=== PATIENT | female | born 1940 | race Caucasian/White ===

== ENCOUNTER → 2016-11-05 | Outpatient (CLI) | payer BC ==
--- NOTE | 2016-11-06 08:43 | MM ---
Reason for exam: screening (asymptomatic). Last mammogram was performed 6 months ago. History: Patient is postmenopausal. Took estrogen beginning at age 47. Physical Findings: A clinical breast exam by your physician is recommended on an annual basis and results should be correlated with mammographic findings. MG 3D Screening Mammo W/Cad Bilateral CC and MLO view(s) were taken. Prior study comparison: October 31, 2015, bilateral MG 3d screening mammo w/cad. October 18, 2014, bilateral MG screening mammo w CAD. October 15, 2013, bilateral MG screening mammo w CAD. There are scattered fibroglandular densities. No significant changes when compared with prior studies. ASSESSMENT: Negative, BI-RAD 1 RECOMMENDATION: Routine screening mammogram of both breasts in 1 year.
== END | disposition home or self-care (01) ==
LOC: RADMAMWWP 10:43
PROVIDERS: ATTEND Family Medicine
DX: Z12.31 Encounter for screening mammogram for malignant neoplasm of breast (principal)
CPT/HCPCS: 77063; G0202

== ENCOUNTER → 2016-12-26 | Outpatient (CLI) | payer BC ==
--- NOTE | 2016-12-26 16:19 | MR ---
EXAMINATION TYPE: MR shoulder RT wo con DATE OF EXAM: 12/26/2016 COMPARISON: Outside radiographs 12/13/2016 HISTORY: 76 year-old female right shoulder pain TECHNIQUE: Multiplanar, multisequence imaging of the right shoulder is performed without contrast. FINDINGS: The long head biceps tendon is seen on the coronal series but shows intermediate signal on the sagitt al series suggesting tendinosis. There is signal of the subscapularis tendon with shallow articular sided tearing. The majority of the subscapularis tendon remains intact. There is mild degenerative joint space narrowing at the acromioclavicular joint with marginal spurrin g. Inferior spurring from the distal clavicle minimally impresses on to the myotendinous junction of the supraspinatal tendon. The supraspinatus and infraspinatus tendons show diffusely heterogeneous signal. There is a bursal si ded tear of the anterior supraspinatus tendon measuring 8 mm long and 9 mm AP dimension. The tear karen ws intrasubstance extension posteriorly into the infraspinatus tendon with fluid delaminating mediall y towards the infraspinatus myotendinous junction. Overall length of the intrasubstance tear is appro ximately 2.5 cm AP. No full-thickness tear is identified. Bony irregularity of both the lesser and greater tuberosities. Trace fluid within the subacromial/subdeltoid bursa. No atrophy of the rotator cuff musculature. Evaluation of the glenohumeral joint shows minimal anterior spurring and some mild thinning of articu lar cartilage. There is degenerative blunting of the superior labrum. No paralabral cyst. Degenerativ e signal within the posterior labrum as well. No significant joint effusion. No Hill-Sachs deformity or os acromiale. Patchy red marrow signal is present. IMPRESSION: 1. Diffuse rotator cuff tendinosis. There is a small bursal sided tear (8 x 9 mm) of the anterior sup raspinatus tendon that involves approximately 50% of the tendon thickness. 2. Intrasubstance extension of this tear posteriorly into the infraspinatus tendon where fluid delami nates medially to the infraspinatus myotendinous junction. No full-thickness tear. 3. Minimal articular sided tearing of the subscapularis tendon. The majority of the subscapularis ten don remains intact. 4. Mild AC joint OA but with inferior spurring mildly impinging onto the underlying cuff. 5. Intracapsular long head biceps tendinosis. 6. Degenerative glenoid labrum and mild glenohumeral joint OA.
== END | disposition home or self-care (01) ==
LOC: RADMRIMAIN 12:01
PROVIDERS: ATTEND Orthopaedic Surgery
DX: S46.811A Strain of other muscles, fascia and tendons at shoulder and upper arm level, right arm, initial encounter (principal); M75.81 Other shoulder lesions, right shoulder; M19.011 Primary osteoarthritis, right shoulder; M67.88 Other specified disorders of synovium and tendon, other site

== ENCOUNTER 2017-02-14 05:58 | Day surgery (SDC) | payer BC ==
[2017-02-11 15:06] VITALS: BMI 41.6
--- NOTE | 2017-02-13 15:37 | HP ---
HISTORY AND PHYSICAL DATE OF SERVICE: 02/14/2017 Mar Grigsby is a 76-year-old patient seen with progressive right shoulder pain. After treatment options were discussed. She elected to proceed with arthroscopy. Consent was obtained. Medical clearance by Dr. Holley. PAST MEDICAL HISTORY: Hypertension, hyperlipidemia, osteoarthritis. PAST SURGICAL HISTORY: Right total knee arthroplasty, left total shoulder arthroplasty. . DAILY MEDICATIONS: Losartan, vitamins. ALLERGIES: SULFA. SOCIAL HISTORY: Patient denies any tobacco use. PHYSICAL EVALUATION OF THE RIGHT SHOULDER: Flexion 160 degrees, abduction is 150 degrees, external rotation is 50 degrees with significant weakness. There is tenderness on the anterolateral acromion and rotator cuff insertion site. Impingement is positive at 90 degrees. Drop-arm sign is positive. Distal neurovascular exam is intact. RADIOGRAPHS OF THE RIGHT SHOULDER: Revealed a type 2 anterior acromion and cystic changes of the greater tuberosity. MRI of right shoulder revealed rotator cuff tear as well as biceps tendinosis. IMPRESSION: Right shoulder impingement with rotator cuff tear. PLAN: Right shoulder arthroscopy with subacromial decompression, probable arthroscopic rotator cuff repair. Possible biceps tenotomy and debridement. MMODL / IJN: [id number] /
[~2017-02-14 05:58] MED LIST: DEXAMETHASONE SOD PHOSPHATE 10 MG/ML 1 ML VIAL IV ONE; LACTATED RINGERS 1,000 ML IV SCH; MIDAZOLAM 2 MG/2 ML VIAL IV PRN; ONDANSETRON 4 MG/2 ML VIAL IVP ONE; SCOPOLAMINE 1.5MG/72HR PATCH TRANSDERM ONE; ceFAZolin 2 GM in SODIUM CHLORIDE 0.9% 100 ML IVPB ONE; fentaNYL (PF) 50 MCG/ML 2 ML AMP IV PRN
[2017-02-14 06:43] VITALS: RESP 16
[2017-02-14] MEDS ORDERED: LIDOCAINE 1% 20 ML VIAL (10MG/ML) FOR IV START INTRADERMA ONE (06:44)
[2017-02-14] MEDS ORDERED: PROPOFOL 10 MG/ML 20 ML VIAL IV ONE (07:26)
[2017-02-14] MEDS ORDERED: GLYCOPYRROLATE 0.2 MG/ML 2 ML VIAL ONE (07:26)
[2017-02-14] MEDS ORDERED: ROCURONIUM BROMIDE 10 MG/ML 10 ML VIAL IV ONE (07:26)
[2017-02-14] MEDS ORDERED: LIDOCAINE 1% INJ 10MG/ML (20 ML MDV) ONE (07:26)
[2017-02-14] MEDS ORDERED: fentaNYL (PF) 50 MCG/ML 2 ML AMP ONE (07:26)
[2017-02-14] MEDS ORDERED: NEOSTIGMINE 1 MG/ML 10 ML VIAL ONE (07:26)
[2017-02-14] MEDS ORDERED: SUCCINYLCHOLINE CHLORIDE 100 MG/5 ML SYR IV ONE (07:26)
--- NOTE | 2017-02-14 09:03 | P.OP ---
Date of Procedure: 02/14/17 Preoperative Diagnosis: Right shoulder impingement Postoperative Diagnosis: 1. Right shoulder rotator cuff tear 2. Right shoulder impingement 3. Right shoulder acromioclavicular joint osteoarthritis 4. Right shoulder partial long head biceps tendon tear 5. Right shoulder anterior/superior labral tear 6. 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 Right shoulder arthroscopic rotator cuff repair 2. Right shoulder arthroscopic subacromial decompression 3. Right shoulder arthroscopic Sukhdev procedure 4. Right shoulder arthroscopic biceps tenotomy 5. Right shoulder arthroscopic debridement labral tear 6. Right shoulder arthroscopic chondroplasty glenoid Implants: 1-5.5 peek anchor Anesthesia: GETA, regional (Interscalene block) Surgeon: Luis Fink Machine Welder #1: Linus Enriquez Estimated Blood Loss (ml): 15 Pathology: none sent Condition: stable Disposition: PACU Indications for Procedure: 76-year-old patient seen with progressive right shoulder pain. After treatment options were discussed she elected to proceed with arthroscopy. Operative Findings: see description of procedure Description of Procedure: Patient underwent a shoulder block by department of anesthesia. The patient was then taken to the operative suite. The patient underwent a general anesthetic by the department of anesthesia. The patient was placed into a lateral position and secured. There was appropriate padding of the bony prominence. Right shoulder was then prepped and draped in normal sterile orthopedic fashion. We placed the extremity in 10 pounds of longitudinal traction. A posterior incision was now made for a posterior working portal site. The trocar and cannula were inserted into the glenohumeral joint. Arthroscopy was initiated. Spinal needle was now inserted anteriorly, to ascertain the anterior working portal site. An incision was now made in that area, a trocar was inserted followed by a probe. There was superficial tearing of the superior and anterior labrum. There were grade 2 chondromalacia changes of the glenoid more anteriorly with some small osteochondral tears present. There was partial tearing of the long head biceps tendon and hyperemia. There was evidence for an through and through rotator cuff tear which was visualized on the glenohumeral side. I debrided the labral tears down to stable tissue. I performed an arthroscopic biceps tenotomy. I performed a chondroplasty of the glenoid down to stable tissue. The residual labrum was found to be stable. Instruments were now removed from glenohumeral joint. Utilizing the posterior working portal site, the trocar and cannula were inserted into the subacromial space. Arthroscopy initiated. I made an incision 2 fingerbreadths lateral to the acromion. I introduced my trocar followed by my ArthroCare ablator. I now began ablating thick subacromial bursal tissue, which exposed the undersurface of the anterior acromion. This was diminished subacromial space. There was a very prominent anterior acromion. A motorized bur was introduced and a subacromial decompression was performed. I also excised some osteophytes off the inferior aspect of the distal clavicle. The AC joint was visualized and noted to be fairly arthritic. Our motorized bur was introduced in the anterior portal site and a Sukhdev procedure was performed without difficulty, decompressing the AC joint nicely. I turned my attention to the rotator cuff. There was a 1.5 cm tear along the anterior aspect of the distal supraspinatus. It was freely mobile over the footprint. I debrided the margins down to stable tissue. I inserted 2 mattress sutures with good bites of rotator cuff tendon. I repaired the tendon back to the footprint with one 5.5 peek anchor compressing the tendon very nicely. The residual suture limbs were clipped. The repair was probed and found to be stable. I injected 1 mL Allogen intra-articular. Instruments now removed from the portal sites. All portal sites were approximated with nylon suture. Sterile dressings were applied followed by a shoulder immobilizer. Juan R DUNN assisted with the procedure. The patient was awakened, transferred to a bed, and taken to recovery in stable condition.
[2017-02-14 09:06] VITALS: TEMP 96.8
[2017-02-14 12:03] VITALS: BP 144/86; PULSE 97
--- NOTE | 2017-02-14 14:32 | P.ONQ ---
Anesthesiology Proc Note - PNB - Peripheral Nerve Block Performed Right Interscalene Single Time Out Performed: Yes Procedure Start Time: 09:05 Procedure Stop Time: 09:14 Indication: Acute Post-Operative Pain, Requested by physician Sedation Type: Sedate with meaningful contact maintained Preparation: Sterile Prep Position: Supine Needle Size: 50mm (2") Needle Gauge: 21 Technique: Ultrasound Injectate: 2.0% Lidocaine (see comment for volume) (ropi .5% 20cc plus lido2% 15cc) Blood Aspirated: No Pain Paresthesia on Injection Noted: No Resistance on Injection: Normal Events: Uneventful and Well Tolerated
== END 2017-02-14 12:40 | disposition home or self-care (01) ==
LOC: OR 05:58
PROVIDERS: ATTEND Orthopaedic Surgery
DX: M75.101 Unspecified rotator cuff tear or rupture of right shoulder, not specified as traumatic (principal); M25.811 Other specified joint disorders, right shoulder; M25.711 Osteophyte, right shoulder; M19.011 Primary osteoarthritis, right shoulder; S46.111A Strain of muscle, fascia and tendon of long head of biceps, right arm, initial encounter; S43.401A Unspecified sprain of right shoulder joint, initial encounter; X58.XXXA Exposure to other specified factors, initial encounter; M94.211 Chondromalacia, right shoulder; I10 Essential (primary) hypertension; R78.5 Finding of other psychotropic drug in blood; Z79.82 Long term (current) use of aspirin; Z79.899 Other long term (current) drug therapy; Z88.2 Allergy status to sulfonamides; Z88.6 Allergy status to analgesic agent; Z88.5 Allergy status to narcotic agent
CPT/HCPCS: 29826; 29827; 29824; 64415; C1713; C1765; J2250; J1100; J2710; J0690; J2405; J2001; J3010; J0330; J2704

== ENCOUNTER → 2017-10-24 | Outpatient (CLI) | payer BC | END | disposition home or self-care (01) | LOC: LABPAT 17:17 | PROVIDERS: ATTEND Orthopaedic Surgery | DX: Z01.812 Encounter for preprocedural laboratory examination (principal) | CPT/HCPCS: 87070 ==

== ENCOUNTER → 2017-10-30 | Outpatient (CLI) | payer BC ==
[2017-10-30 16:15] LABS: Basophils % (A) 1 %; Eosinophils # (A) 0.2 k/uL (0-0.7); Eosinophils % (A) 3 %; HCT 46.1 % (34.0-46.0); HGB 15.2 gm/dL (11.4-16.0); Lymphocytes # (A) 1.8 k/uL (1.0-4.8); Lymphocytes % (A) 28 %; MCH 30.2 pg (25.0-35.0); MCV 91.3 fL (80.0-100.0); Monocytes # (A) 0.6 k/uL (0-1.0); Monocytes % (A) 10 %; Neutrophils # (A) 3.4 k/uL (1.3-7.7); Neutrophils % (A) 54 %; Platelet Count 255 k/uL (150-450); RBC 5.05 m/uL (3.80-5.40); RDW 13.3 % (11.5-15.5); WBC 6.3 k/uL (3.8-10.6)
[2017-10-30 16:26] LABS: Partial Thromboplastin Time 24.5 sec (22.0-30.0); Prothrombin Time 10.2 sec (9.0-12.0)
== END | disposition home or self-care (01) ==
LOC: LABPAT 14:24
PROVIDERS: ATTEND Orthopaedic Surgery
DX: Z01.812 Encounter for preprocedural laboratory examination (principal); M17.12 Unilateral primary osteoarthritis, left knee
CPT/HCPCS: 36415; 85025; 85610; 85730

== ENCOUNTER 2017-11-04 07:30 | Inpatient (IN) | payer BC ==
[2017-10-28 13:47] VITALS: BMI 41.5
--- NOTE | 2017-11-03 12:04 | HP ---
HISTORY AND PHYSICAL REASON FOR ADMISSION: Surgery scheduled for 11/04/2017 HISTORY OF PRESENT ILLNESS: Mar Grigsby is a 77-year-old patient seen with symptomatic left knee osteoarthritis. We discussed treatment options. She elected to proceed with left total knee arthroplasty. Consent regarding the procedure was obtained. PAST MEDICAL HISTORY: Hypertension, hyperlipidemia. PAST SURGICAL HISTORY: Right total knee arthroplasty, left shoulder arthroplasty. MEDICATIONS: Losartan, multivitamin. ALLERGIES: SULFA. SOCIAL HISTORY: Patient denies current tobacco use. PHYSICAL EXAMINATION: Evaluation of the left knee: Range of motion is +2/3 to 120 degrees. Tenderness along the medial joint line. Crepitus along the medial patellofemoral compartments range of motion. Pain with patellofemoral compression. Ligaments stable. Hip rotation without pain. Distal neurovascular exam is intact. RADIOGRAPHS: Left knee radiographs revealed moderate to severe medial and moderate to severe patellofemoral compartment osteoarthritis. IMPRESSION: 1. Left knee osteoarthritis. 2. Hypertension. 3. Hyperlipidemia. PLAN: Left total knee arthroplasty. Surgery 11/04/17. MMODL / IJN: [id number] /
[~2017-11-04 07:30] MED LIST changes: -DEXAMETHASONE SOD PHOSPHATE 10 MG/ML 1 ML VIAL IV ONE; -LACTATED RINGERS 1,000 ML IV SCH; +LIDOCAINE 1% 20 ML VIAL (10MG/ML) FOR IV START INTRADERMA PRN; -MIDAZOLAM 2 MG/2 ML VIAL IV PRN; -ONDANSETRON 4 MG/2 ML VIAL IVP ONE; -SCOPOLAMINE 1.5MG/72HR PATCH TRANSDERM ONE; +TRANEXAMIC ACID 1,000 MG in SODIUM CHLORIDE 0.9% 50 ML IVPB ONE; -ceFAZolin 2 GM in SODIUM CHLORIDE 0.9% 100 ML IVPB ONE; +ceFAZolin IN SWFI 2 GM/20 ML SYRINGE IVP ONE
[2017-11-04] MEDS: LACTATED RINGERS 1,000 ML IV SCH ×3 (08:26→14:31)
[2017-11-04] MEDS ORDERED: LIDOCAINE 1% 20 ML VIAL (10MG/ML) FOR IV START INTRADERMA ONE (08:26)
[2017-11-04] MEDS ORDERED: MIDAZOLAM 2 MG/2 ML VIAL ONE ×2 (08:32→10:07)
[2017-11-04] MEDS: MELOXICAM 7.5 MG TAB PO ONE ×2 (08:33→13:57)
[2017-11-04] MEDS: ONDANSETRON 4 MG/2 ML VIAL IVP ONE ×2 (08:33→13:57)
[2017-11-04] MEDS: ACETAMINOPHEN TAB 500 MG TAB PO ONE ×2 (08:33→13:56)
[2017-11-04] MEDS ORDERED: ROPIVACAINE 1,100 MG, SODIUM CHLORIDE 0.9% 330 ML MISCELLANE PRN ×2 (09:31)
[2017-11-04] MEDS ORDERED: TRANEXAMIC ACID 1,000 MG/10 ML VIAL ONE (10:07)
[2017-11-04] MEDS ORDERED: SODIUM CHLORIDE 0.9% 100 ML BAG ONE (10:07)
[2017-11-04] MEDS ORDERED: fentaNYL (PF) 50 MCG/ML 2 ML AMP ONE (10:07)
[2017-11-04] MEDS ORDERED: DEXAMETHASONE SOD PHOS (MDV) 100 MG/10 ML VIAL ONE (10:07)
[2017-11-04] MEDS ORDERED: diphenhydrAMINE 50 MG/ML 1 ML VIAL ONE (10:07)
[2017-11-04] MEDS: ROPIVACAINE 246.25 MG, EPINEPHrine 0.5 MG, KETOROLAC 30 MG, cloNIDine HCL/PF 80 MCG, WA... MISCELLANE ONE ×10 (10:44→11:49)
[2017-11-04] MEDS ORDERED: ceFAZolin 3,000 MG in SODIUM CHLORIDE 0.9% IRRIGATIO 3,000 ML IRRIGATION ONE (10:45)
[2017-11-04] MEDS ORDERED: LACTATED RINGERS 1,000 ML IV ONE (12:05)
[2017-11-04] MEDS ORDERED: ONDANSETRON 4 MG/2 ML VIAL IVP PRN (12:10)
[2017-11-04] MEDS ORDERED: HYDROmorphone 0.5 MG/0.5 ML SYRINGE IVP PRN ×3 (12:10)
[2017-11-04] MEDS ORDERED: NALOXONE 0.4 MG/ML 1 ML VIAL IV PRN (12:10)
[2017-11-04] MEDS ORDERED: HYDROcodone/APAP 7.5-325MG 1 EACH TAB PO PRN ×2 (12:10)
--- NOTE | 2017-11-04 12:10 | P.OP ---
Date of Procedure: 11/04/17 Preoperative Diagnosis: Left knee osteoarthritis Postoperative Diagnosis: Left knee osteoarthritis Procedure(s) Performed: Left total knee arthroplasty Implants: 1. Microport Evolution MP size 4 left primary cemented femur 2. Microport Evolution MP size 4 left primary cemented keel tibial base 3. Microport Evolution size 4 left 10 mm CS polyethylene tibial insert 4. Microport Advance 35 mm all polyethylene cemented patella Anesthesia: local, spinal Surgeon: Luis Fink Programming Development Project Manager #1: Linus Enriquez Estimated Blood Loss (ml): 50 Pathology: other (Bone) Condition: stable Disposition: PACU Indications for Procedure: 77-year-old patient seen with symptomatic left knee osteoarthritis. After treatment options were discussed, she elected to proceed with total knee arthroplasty. Operative Findings: See description of procedure Description of Procedure: Patient was taken to the operative suite after having an abductor canal catheter placed by the department of anesthesia. Patient underwent a spinal anesthetic by the department of anesthesia. Patient was given preoperative IV intake antibiotics and TXA. A well-padded tourniquet was placed about the left lower extremity. The lower extremity was then prepped and draped in the normal sterile orthopedic fashion. The extremity was elevated, a tourniquet was insufflated to 300. A standard anterior incision was made sharply through skin. Dissection was taken down through the subcutaneous soft tissues down to the extensor mechanism. A medial arthrotomy was performed, patella was everted and knee was flexed. There was advanced osteoarthritis noted. A proximal tibial cutting guide was positioned. Proximal tibial cut was made. A distal intramedullary femoral cutting guide was positioned, distal femoral cut made. We placed the appropriate sizing guide and selected the appropriate size. A distal 4-in-1 femoral cutting block was positioned, distal femoral cuts were made. We now placed a trial femoral component into position, along with an appropriate size tibial tray and insert. We now took the knee through range of motion and had full extension good flexion and good overall soft tissue balance noted. The patella was everted and a flush cut made with patellar quad tendon. We templated the patella, appropriate drill holes were made. An appropriate trial patella was positioned, knee was taken through full range of motion with the patella tracking very nicely. The trial patella was removed. Drill holes were made through the femoral component. All trial components were removed after marking off the appropriate rotation of the tibia. Retractors were now positioned along the proximal tibia. An appropriate keel punch was made with the appropriate size tibial guide. At this point appropriate size implants were chosen and opened. The joint was irrigated copiously with pulse lavage mechanical irrigation. The posterior capsule was infiltrated with local analgesic. We mixed antibiotic methylmethacrylate. Once the methyl methacrylate was ready, the tibial component was cemented into place removing any excess methylmethacrylate. The femoral component was cemented into place removing the removing any excess methylmethacrylate. We then inserted the appropriate size polyethylene tibial insert. We made sure that it was locked into position. We took the knee into full extension, and then back in a flexion making sure we had removed any excess methylmethacrylate. The patellar component was then cemented down and secured with clamp. Excess methylmethacrylate removed. We kept the knee in full extension, patellar clamp in position until methylmethacrylate had hardened. Once it had hardened the patellar clamp was removed. The knee was taken through full range of motion. The patella tracked nicely. There was good soft tissue balancing. The tourniquet was now released. Additional hemostasis was achieved via electrocautery. A second gram of TXA was given. The wound was irrigated with pulse lavage mechanical irrigation. The superficial soft tissues were infiltrated local analgesic. The extensor mechanism was repaired with Vicryl. We checked the repair with range of motion and it was stable. The subcutaneous soft tissues were repaired with Vicryl in layers. The skin was approximated with pernio/Dermabond. Sterile dressings were applied followed by loose web roll and Unruly bandage. The patient was transferred to a bed, and taken to recovery in stable and satisfactory condition. Juan R DUNN assisted with the procedure.
[2017-11-04 12:59] VITALS: RESP 16
--- NOTE | 2017-11-04 13:30 | XR ---
Limited left knee HISTORY: Status post left knee arthroplasty 2 views of the left knee No comparisons Patient is status post left knee arthroplasty. Surgical basia are present anteriorly. Lucency is re sonant the soft tissues. Anatomic alignment is noted. Calcification seen along the insertion of the r ectus femoris muscle. IMPRESSION: Orthopedic follow-up.
[2017-11-04] MEDS: traMADol 50 MG TAB PO SCH ×4 (14:14→22:19)
--- NOTE | 2017-11-04 14:28 | P.CONS ---
History of Present Illness - Reason for Consult Consult date: 11/04/17 Medical management Requesting physician: Luis Fink - Chief Complaint Status post left total knee arthroplasty - History of Present Illness This is a 77-year-old female with a known history of hypertension, osteoarthritis and overactive bladder. Patient presents to the hospital for left total knee arthroplasty. She's had a previous right total knee arthroplasty and bilateral shoulder surgeries. She tolerated surgery well estimated blood loss 50 ML. No complications. She denies any chest pain or shortness of breath. Denies any nausea or vomiting. Denies any bowel movement changes or urinary symptoms. We've been consulted for medical management. Review of Systems Please refer to HPI otherwise unremarkable Past Medical History Past Medical History: Hypertension, Osteoarthritis (OA) Additional Past Medical History / Comment(s): HX OF MIGRAINE HEADACHES History of Any Multi-Drug Resistant Organisms: None Reported Past Surgical History: Section, Joint Replacement, Orthopedic Surgery Additional Past Surgical History / Comment(s): PVO CLOSURE, LEFT SHOULDER REPLACEMENT, RIGHT KNEE REPLACEMENT, RT FOOT BUNION SX, LASIK EVELYN EYES Past Anesthesia/Blood Transfusion Reactions: Postoperative Nausea & Vomiting ( PONV) Additional Past Anesthesia/Blood Transfusion Reaction / Comm: son and daughter severe PONV Smoking Status: Former smoker - Past Family History Mother Family Medical History: Dementia, Diabetes Mellitus Father Family Medical History: Cancer Additional Family Medical History / Comment(s): NON-HODGKINS LYMPHOMA Medications and Allergies Home Medications Medication Instructions Recorded Confirmed Type Ascorbic Acid [Vitamin C] 1,000 mg PO DAILY 01/04/15 11/04/17 History Celecoxib [CeleBREX] 200 mg PO BID 01/04/15 11/04/17 History Multivitamins, Thera [Multivitamin] 1 tab PO DAILY 01/04/15 11/04/17 History Cholecalciferol [Vitamin D3] 5,000 unit PO DAILY 01/09/16 11/04/17 History Acetaminophen [Tylenol Extra 1,000 mg PO BID 02/11/17 11/04/17 History Strength] Aspirin [Adult Low Dose Aspirin EC] 81 mg PO DAILY 02/11/17 11/04/17 History Fexofenadine HCl [Sindy Allergy] 180 mg PO DAILY 02/11/17 11/04/17 History L.acidoph,Paracasei, B.lactis 1 cap PO DAILY 02/11/17 11/04/17 History [Probiotic] Losartan/Hydrochlorothiazide 1 tab PO QAM 02/11/17 11/04/17 History [Hyzaar 100-25 Tablet] Mirabegron [Myrbetriq] 50 mg PO DAILY 02/11/17 11/04/17 History Calcium Carbonate [Calcium] 600 mg PO DAILY 10/28/17 11/04/17 History Stool Softner 4 tab PO HS 10/28/17 11/04/17 History Apixaban [Eliquis] 2.5 mg PO BID #30 tab 11/04/17 Rx Allergies Allergy/AdvReac Type Severity Reaction Status Date / Time hydrocodone [From Vicodin] Allergy Nausea & Verified 11/04/17 12:41 Vomiting Sulfa (Sulfonamide AdvReac migraine Verified 11/04/17 12:41 Antibiotics) Physical Exam Vitals: Vital Signs Temp Pulse Pulse Resp BP BP Pulse Ox 11/04/17 13:15 83 16 111/56 97 11/04/17 13:00 84 16 104/51 96 11/04/17 12:45 85 16 106/52 95 11/04/17 12:30 88 18 99/54 97 11/04/17 12:15 99.0 F 91 18 156/72 96 11/04/17 08:54 84 18 128/64 96 11/04/17 08:21 98.4 F 96 16 128/67 95 Intake and Output 11/03/17 11/04/17 11/04/17 22:59 06:59 14:59 Intake Total 1201 Output Total 50 Balance 1151 Intake: IV 1201 Output: Estimated Blood Loss 50 Other: Weight 99.79 kg Head normocephalic Neck supple Lungs clear to auscultation bilaterally no wheezing or crackles Heart regular rate and rhythm S1-S2, no rub or gallop Abdomen is soft nontender nondistended positive bowel sounds no hepatosplenomegaly Extremities no edema Neuro alert and orientated to 3 Assessment and Plan Assessment: 1. Status post left total knee arthroplasty: Continue Lovenox for DVT prophylaxis and [place], Ultram and Dilaudid for pain control 2. Essential hypertension: Blood pressure is on the lower side. We'll hold Hyzaar for now. Last BP 111/56 3. Overactive bladder resume home medication GI prophylaxis Pepcid and DVT prophylaxis Lovenox Thank you For this consultation. We'll continue to follow along with you during patient's hospitalization. Time with Patient: Greater than 30 (Greater than 60% of the total time spent in counseling and coordination of care.I performed an examination of the patient and discussed their management with the physician Tester Operator. I have reviewed the Physician Tester Operator's notes and agree with the documented findings and plan of care)
[2017-11-04] MEDS: ceFAZolin IN SWFI 2 GM/20 ML SYRINGE IVP SCH (18:14)
--- NOTE | 2017-11-04 20:44 | P.ONQ ---
Anesthesiology Proc Note - PNB - Peripheral Nerve Block Performed Left Adductor Canal Infusion Time Out Performed: Yes Procedure Start Time: 08:38 Procedure Stop Time: 08:51 Indication: Acute Post-Operative Pain, Requested by physician Sedation Type: Sedate with meaningful contact maintained Preparation: Sterile Dressing Position: Supine Catheter: Indwelling Needle Types: On-Q Needle Size: 100mm (4") Needle Gauge: 21 Technique: Ultrasound Injectate: 0.5% Ropivacaine (see comment for volume) (ropi .5% 20cc) Blood Aspirated: No Pain Paresthesia on Injection Noted: No Resistance on Injection: Normal Events: Uneventful and Well Tolerated
[2017-11-04] MEDS ORDERED: SENNOSIDES-DOCUSATE SODIUM 1 EACH TAB PO SCH (21:00)
[2017-11-05] MEDS: ceFAZolin IN SWFI 2 GM/20 ML SYRINGE IVP SCH (01:05)
[2017-11-05 01:14] VITALS: PULSE 90
[2017-11-05] MEDS: LACTATED RINGERS 1,000 ML IV SCH ×2 (05:04→06:15)
[2017-11-05] MEDS ORDERED: ACETAMINOPHEN TAB 325 MG TAB PO PRN (06:03)
--- NOTE | 2017-11-05 07:11 | P.PN ---
Progress Note - Text 11/05 705am 77-year-old female status post left total knee replacement by Dr. Fink. Patient seen this morning for postop problems. She has an On-Q pump for postop pain control with the solution running at 8 mL an hour. She has a VAS of 0. Plan to continue On-Q pump infusion
[2017-11-05] MEDS: traMADol 50 MG TAB PO SCH ×2 (08:11→12:22)
[2017-11-05 08:26] LABS: ALT 18 U/L (9-52); AST 16 U/L (14-36); Albumin 3.2 g/dL (3.5-5.0); Alkaline Phosphatase 48 U/L (38-126); Anion Gap 8 mmol/L; Blood Urea Nitrogen 21 mg/dL (7-17); Calcium 8.7 mg/dL (8.4-10.2); Carbon Dioxide 29 mmol/L (22-30); Chloride 102 mmol/L (98-107); Glucose 96 mg/dL (74-99); Potassium 3.4 mmol/L (3.5-5.1); Sodium 139 mmol/L (137-145); Total Bilirubin 0.3 mg/dL (0.2-1.3); Total Protein 5.5 g/dL (6.3-8.2)
[2017-11-05 08:33] VITALS: BP 100/65; TEMP 97.8
[2017-11-05] MEDS ORDERED: FAMOTIDINE 20 MG TAB PO SCH (09:00)
[2017-11-05] MEDS ORDERED: ENOXAPARIN 30 MG/0.3 ML SYRINGE SQ SCH (09:00)
[2017-11-05] MEDS ORDERED: PATIENT'S OWN MED (Mirabegron [Myrbetriq] 50 MG) PO SCH (09:00)
[2017-11-05] MEDS ORDERED: MELOXICAM 7.5 MG TAB PO SCH (09:00)
[2017-11-05] MEDS ORDERED: LORATADINE 10 MG TAB PO SCH (09:00)
[2017-11-05 09:13] LABS: Basophils % (A) 0 %; Eosinophils % (A) 0 %; HCT 37.4 % (34.0-46.0); Lymphocytes # (A) 1.6 k/uL (1.0-4.8); Lymphocytes % (A) 18 %; MCH 30.8 pg (25.0-35.0); MCHC 32.5 g/dL (31.0-37.0); MCV 94.7 fL (80.0-100.0); Mean Platelet Volume 6.9; Monocytes # (A) 0.7 k/uL (0-1.0); Monocytes % (A) 8 %; Neutrophils # (A) 6.3 k/uL (1.3-7.7); Neutrophils % (A) 71 %; Platelet Count 193 k/uL (150-450); RBC 3.95 m/uL (3.80-5.40); RDW 13.7 % (11.5-15.5); WBC 8.8 k/uL (3.8-10.6)
[2017-11-05] MEDS ORDERED: POTASSIUM CHLORIDE ER 20 MEQ TAB.ER PO STA (09:19)
[2017-11-05 09:34] LABS: HGB 12.2 gm/dL (11.4-16.0)
--- NOTE | 2017-11-05 11:18 | P.PN ---
Subjective Progress Note Date: 11/05/17 Principal diagnosis: Status post left total knee arthroplasty Patient is in today resting in her hospital bed, she appears comfortable. She' s done very well with physical therapy. She denies any headaches, lightheadedness, chest pain or shortness of breath. Objective - Vital Signs Vital signs: Vital Signs Temp 97.8 F 11/05/17 07:30 Pulse 90 11/05/17 00:42 Resp 16 11/05/17 07:30 BP 100/65 11/05/17 07:30 Pulse Ox 94 L 11/05/17 07:30 Intake & Output 11/04/17 11/05/17 11/05/17 18:59 06:59 18:59 Intake Total 1201 735 Output Total 50 Balance 1151 735 Weight 99.79 kg Intake: IV 1201 Intake, IV Titration 735 Amount Lactated Ringers 1,000 ml 735 @ 70 mls/hr IV .[id number] ION Rx#:[id number] Output: Estimated Blood Loss 50 Other: Voiding Method Bedside Commode Bedside Commode # Voids 1 - Exam Left lower extremity: Incision is clean, dry, and intact. [place] are in good position. There is minimal soft tissue swelling and ecchymosis surrounding the medial and lateral aspects of the incision. Calf is soft, no tenderness with palpation. Plantar flexion, dorsiflexion, EHL, FHL are intact. Sensory exam to light touch throughout the extremity is intact, dorsal pedis pulses 2+. - Labs CBC & Chem 7: 11/05/17 07:15 11/05/17 07:15 Labs: Abnormal Lab Results - Last 24 Hours (Table) 11/05/17 Range/Units 07:15 Potassium 3.4 L (3.5-5.1) mmol/L BUN 21 H (7-17) mg/dL Total Protein 5.5 L (6.3-8.2) g/dL Albumin 3.2 L (3.5-5.0) g/dL Assessment and Plan Plan: Assessment: 1. Postop day #1 status post left total knee arthroplasty Plan: Pain control, we'll discharge home on oral medication GI and DVT prophylaxis, Eliquis 2.5mg bid for 14 days Medical recommendations Wound care management was discussed Home care and nursing after discharge Discharge planning: Patient will be discharged home today Time with Patient: Less than 30
--- NOTE | 2017-11-05 11:22 | P.DS ---
Providers Date of admission: 11/04/17 07:51 Expected date of discharge: 11/05/17 Attending physician: Luis Fink Primary care physician: Susannah Holley Hospital Course: Date of admission: 11/04/2017 Date of discharge: 11/05/2017 Admission diagnosis: Status post left total knee arthroplasty Discharge diagnosis: Same Attending physician: Dr. Fink Surgical procedures: Left total knee arthroplasty Brief history: Patient is a 77-year-old female with a history of progressive primary left knee osteoarthritis. At this point patient has failed conservative treatment measures and has opted to proceed with a elective left total knee arthroplasty. Hospital course: Details of patient's surgery can be found in operative report. Patient tolerated the procedure well and was subsequently transported to orthopedic floor. Patient's orthopeidc and medical care was provided daily. Patient had daily laboratory tests performed for evaluation of overall blood counts. Patient had daily physical therapy to include strengthening range of motion as well as education with walker ambulation. Patient had daily CPM usage as part of their physical therapy program. Patient was treated with Lovenox for their postoperative DVT prophylaxis during their inpatient stay. Patient was noted to have a relatively uneventful postoperative course. Patient reported satisfactory pain control with oral pain medications by postoperative day 0. Patient showed satisfactory progress with physical therapy. Patient moved steadily through the program and had no difficulty meeting the goals by postoperative day 1. Given patient's otherwise satisfactory course and having met physical therapy goals, plan is to discharge patient home on postoperative day 1. Discharge condition/disposition: Patient will be discharged home in stable condition. Discharge medications: Instructions are given on resumption of patient's normal daily medications per primary care recommendation, in addition patient will be prescribed Wray 7.5 mg/325 mg, tramadol 50 mg, Colace 100 mg, Eliquis 2.5mg. Discharge instructions: 1. Wound care and infection precautions, keep incision dry and covered while showering, no lotions, creams, moisturizers. No soaking, tubs, pools, hottubs. Do not scrub over the incision. 2. Weight-bear as tolerated with walker / cane until follow-up. 3. Ice and elevate when necessary. Do not exceed 20 minutes per hour with ice pack. 4. Utilize compression sleeve until seen at first follow up appointment. 5. Visiting nursing care. 6. Home physical therapy including home CPM. 7. Pain meds and anticoagulants per prescription. 8. Pain medication has potential to cause constipation. Increase oral fluid and fiber intake. Contact primary care provider if you have not had a bowel movement within 48 hours after discharge 9. No anti-inflammatory medication until discussed at first post operative visit, this including Motrin, Aleve, Mobic, Diclofenac. 10. Follow up in office at 2 weeks postop with Juan R Enriquez PA-C 11. Follow up with your primary care doctor 7-10 days after discharge. 12. Contact [facility] with any questions, . Procedures: Left total knee arthroplasty Patient Condition at Discharge: Good Plan - Discharge Summary Discharge Rx Participant: Yes New Discharge Prescriptions: New Apixaban [Eliquis] 2.5 mg PO BID #30 tab Docusate [Colace] 100 mg PO DAILY #30 capsule HYDROcodone/APAP 7.5-325MG [Wray 7.5] 1 each PO Q6HR PRN #28 tab PRN Reason: Pain traMADol HCl [Ultram] 50 mg PO Q6H PRN #28 tab PRN Reason: Pain No Action Multivitamins, Thera [Multivitamin] 1 tab PO DAILY Ascorbic Acid [Vitamin C] 1,000 mg PO DAILY Cholecalciferol [Vitamin D3] 5,000 unit PO DAILY Losartan/Hydrochlorothiazide [Hyzaar 100-25 Tablet] 1 tab PO QAM L.acidoph,Paracasei, B.lactis [Probiotic] 1 cap PO DAILY Fexofenadine HCl [Sindy Allergy] 180 mg PO DAILY Aspirin [Adult Low Dose Aspirin EC] 81 mg PO DAILY Mirabegron [Myrbetriq] 50 mg PO DAILY Acetaminophen [Tylenol Extra Strength] 1,000 mg PO BID Calcium Carbonate [Calcium] 600 mg PO DAILY Stool Softner 4 tab PO HS Discharge Medication List Ascorbic Acid [Vitamin C] 1,000 mg PO DAILY 01/04/15 [History] Multivitamins, Thera [Multivitamin] 1 tab PO DAILY 01/04/15 [History] Cholecalciferol [Vitamin D3] 5,000 unit PO DAILY 01/09/16 [History] Acetaminophen [Tylenol Extra Strength] 1,000 mg PO BID 02/11/17 [History] Aspirin [Adult Low Dose Aspirin EC] 81 mg PO DAILY 02/11/17 [History] Fexofenadine HCl [Sindy Allergy] 180 mg PO DAILY 02/11/17 [History] L.acidoph,Paracasei, B.lactis [Probiotic] 1 cap PO DAILY 02/11/17 [History] Losartan/Hydrochlorothiazide [Hyzaar 100-25 Tablet] 1 tab PO QAM 02/11/17 [ History] Mirabegron [Myrbetriq] 50 mg PO DAILY 02/11/17 [History] Calcium Carbonate [Calcium] 600 mg PO DAILY 10/28/17 [History] Stool Softner 4 tab PO HS 10/28/17 [History] Apixaban [Eliquis] 2.5 mg PO BID #30 tab 11/04/17 [Rx] Docusate [Colace] 100 mg PO DAILY #30 capsule 11/05/17 [Rx] HYDROcodone/APAP 7.5-325MG [Wray 7.5] 1 each PO Q6HR PRN #28 tab 11/05/17 [Rx] traMADol HCl [Ultram] 50 mg PO Q6H PRN #28 tab 11/05/17 [Rx] Follow up Appointment(s)/Referral(s): Susannah Holley MD [Primary Care Provider] - 11/12/17 9:30 am [facility], [NON-STAFF] - Linus Enriquez PAC [PHYSICIAN PARTITION ASSEMBLY MACHINE OPERATOR] - 11/20/17 1:50 pm Activity/Diet/Wound Care/Special Instructions: Orthopedic Discharge Instructions: 1. Wound care and infection precautions, keep incision dry and covered while showering, no lotions, creams, moisturizers. No soaking, pools, hot tubs. Do not scrub over incision. 2. Weight-bear as tolerated with walker / cane until follow-up. 3. Ice and elevate when necessary. Do not exceed 20 minutes per hour with ice pack. 4. Utilize compression sleeve until seen at first follow up appointment. 5. Visiting nursing care. 6. Home physical therapy. 7. Pain meds and anticoagulants per prescription. 8. Pain medication has potential to cause constipation. Increase oral fluid and fiber intake. Contact primary care provider if you have not had a bowel movement within 48 hours after discharge. 9. No anti-inflammatory medication until discussed at first post operative visit, this including Motrin, Aleve, Mobic, Diclofenac. 10. Follow up in office at 2 weeks postop with Juan R Enriquez PA-C 11. Follow up with your primary care doctor 7-10 days after discharge. 12. Contact [facility] with any questions, . Discharge Disposition: HOME WITH HOME HEALTH SERVICES
--- NOTE | 2017-11-05 11:31 | P.PN ---
Subjective Progress Note Date: 11/05/17 This is a 77-year-old female with a known history of hypertension, osteoarthritis and overactive bladder. Patient presents to the hospital for left total knee arthroplasty. She's had a previous right total knee arthroplasty and bilateral shoulder surgeries. She tolerated surgery well estimated blood loss 50 ML. No complications. She denies any chest pain or shortness of breath. Denies any nausea or vomiting. Denies any bowel movement changes or urinary symptoms. We've been consulted for medical management. 11/05/2017 patient denies any pain. Denies any nausea or vomiting. She has been up and ambulating. Denies any chest pain shortness breath. Denies any difficulty urinating. Passing gas no bowel movement yet. She is been cleared by orthopedics for discharge today. Objective - Vital Signs Vital signs: Vital Signs Temp 97.8 F 11/05/17 07:30 Pulse 90 11/05/17 00:42 Resp 16 11/05/17 07:30 BP 100/65 11/05/17 07:30 Pulse Ox 94 L 11/05/17 07:30 Intake & Output 11/04/17 11/05/17 11/05/17 18:59 06:59 18:59 Intake Total 1201 735 Output Total 50 Balance 1151 735 Weight 99.79 kg Intake: IV 1201 Intake, IV Titration 735 Amount Lactated Ringers 1,000 ml 735 @ 70 mls/hr IV .[id number] [facility] Rx#:[id number] Output: Estimated Blood Loss 50 Other: Voiding Method Bedside Commode Bedside Commode # Voids 1 - Exam Head normocephalic Neck supple Lungs clear to auscultation bilaterally no wheezing or crackles Heart regular rate and rhythm S1-S2, no rub or gallop Abdomen is soft nontender nondistended positive bowel sounds no hepatosplenomegaly Extremities no edema. Left knee incision and dressing clean dry and intact Neuro alert and orientated to 3 - Labs CBC & Chem 7: 11/05/17 07:15 11/05/17 07:15 Labs: Abnormal Lab Results - Last 24 Hours (Table) 11/05/17 Range/Units 07:15 Potassium 3.4 L (3.5-5.1) mmol/L BUN 21 H (7-17) mg/dL Total Protein 5.5 L (6.3-8.2) g/dL Albumin 3.2 L (3.5-5.0) g/dL Assessment and Plan Assessment: 1. Status post left total knee arthroplasty: Continue Eliquis at home for DVT prophylaxis 2. Essential hypertension: Blood pressures are still on the lower side blood pressure this morning was 100/65. Patient is able to check her blood pressures at home. Recommend that she holds her Hyzaar for systolic blood pressure less than 120. Also patient has been educated to check BP daily and record and follow-up with her PCP for further adjustment in medications 3. Overactive bladder resume home medication 4. Hypokalemia patient received potassium supplement. Potassium 3.4 at discharge Patient is medically stable for discharge. We'll have her follow-up with her PCP in 1 week. I performed an examination of the patient and discussed their management with the physician Charcoal Unloader. I have reviewed the Physician Charcoal Unloader's notes and agree with the documented findings and plan of care
[2017-11-05] MEDS ORDERED: CHOLECALCIFEROL 1,000 UNIT TAB PO SCH (12:00)
[2017-11-05] MEDS ORDERED: MULTIVITAMINS, THERA 1 EACH TAB PO SCH (12:00)
== END 2017-11-05 14:40 | disposition home health service (06) | DRG 470 ==
LOC: 2ORMAIN 07:51 → 3SUR 13:13
PROVIDERS: ADMIT Orthopaedic Surgery; ATTEND Orthopaedic Surgery
PROC: 0SRD0J9 Replacement of Left Knee Joint with Synthetic Substitute, Cemented, Open Approach (ICD-10-PCS; principal; 2017-11-04 09:45)
DX: M17.12 Unilateral primary osteoarthritis, left knee (principal); E78.5 Hyperlipidemia, unspecified; E87.6 Hypokalemia; I10 Essential (primary) hypertension; N32.81 Overactive bladder; G43.909 Migraine, unspecified, not intractable, without status migrainosus; R32 Unspecified urinary incontinence; M41.9 Scoliosis, unspecified; Z79.01 Long term (current) use of anticoagulants; Z79.82 Long term (current) use of aspirin; Z79.1 Long term (current) use of non-steroidal anti-inflammatories (NSAID); Z79.899 Other long term (current) drug therapy; Z88.5 Allergy status to narcotic agent; Z88.2 Allergy status to sulfonamides; Z87.891 Personal history of nicotine dependence; Z96.651 Presence of right artificial knee joint; Z96.612 Presence of left artificial shoulder joint; Z86.73 Personal history of transient ischemic attack (TIA), and cerebral infarction without residual deficits; Z87.74 Personal history of (corrected) congenital malformations of heart and circulatory system; Z90.710 Acquired absence of both cervix and uterus; Z90.79 Acquired absence of other genital organ(s); Z90.722 Acquired absence of ovaries, bilateral; Z90.49 Acquired absence of other specified parts of digestive tract; Z83.3 Family history of diabetes mellitus; Z80.7 Family history of other malignant neoplasms of lymphoid, hematopoietic and related tissues; Z82.0 Family history of epilepsy and other diseases of the nervous system
CPT/HCPCS: 80053; 85025; 88300

== ENCOUNTER 2017-11-09 11:31 | Emergency (ER) | payer MEDICARE, BC ==
[2017-11-09 11:37] VITALS: BP 134/85; PULSE 98; RESP 18; TEMP 98.6
--- NOTE | 2017-11-09 12:33 | CT ---
EXAMINATION TYPE: CT brain cspine wo con DATE OF EXAM: 11/09/2017 COMPARISON: CT brain and C-spine 12/31/2015 HISTORY: Fall today with possible injury CT DLP: 2183.1 mGycm Automated exposure control for dose reduction was used. TECHNIQUE: CT scan of the head and cervical spine are performed without contrast. FINDINGS: There is no acute intracranial hemorrhage, mass effect, or midline shift identified. The ventricles and sulci are within normal limits in size. The globes are intact and the visualized sin uses are clear. Cervical spine is visualized in its entirety from C1 through upper thoracic levels and demonstrates s atisfactory alignment without evidence of acute fracture or dislocation. Degenerative disc changes ar e again noted. Multilevel foraminal encroachment is present. Prevertebral soft tissue appears within normal limits. The C1-C2 articulation is unremarkable. 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 IMPRESSION: 1. There is no acute fracture or dislocation evident in the cervical spine. 2. No acute intracranial hemorrhage, mass effect, or midline shift is seen.
--- NOTE | 2017-11-09 12:35 | XR ---
Left knee HISTORY: Trauma and pain 3 views of the left knee correlated to prior exam 11/04/2017 There is displacement of the calcifications seen at the level of the superior patella on previous exa m which now are noted more proximally. No fracture or dislocation. IMPRESSION: Status post left knee arthroplasty in anatomic alignment. No fracture or dislocation. Cor relate to exclude quadriceps tendon rupture
--- NOTE | 2017-11-09 13:15 | ED ---
General Adult HPI - General Chief complaint: Fall Stated complaint: Post Surgical Stitches Opened Time Seen by Provider: 11/09/17 11:45 Source: family, RN notes reviewed, old records reviewed Mode of arrival: wheelchair Limitations: physical limitation - History of Present Illness Initial comments: This is a 77-year-old female to the ER for evaluation today. Patient presents for evaluation regarding fall, patient is currently on [place]. Patient had left total knee replacement on Saturday with good healing and good activity. She fell the bathroom earlier today she did hit her head with no loss of consciousness complaining some posterior head and neck pain. Patient also is complaining of severe pain to her left knee this is operative knee. With mild bleeding. Patient was unable to ambulate after the injury - Related Data Home Medications Medication Instructions Recorded Confirmed Ascorbic Acid [Vitamin C] 1,000 mg PO DAILY 01/04/15 11/09/17 Multivitamins, Thera [Multivitamin 1 tab PO DAILY 01/04/15 11/09/17 (formulary)] Cholecalciferol [Vitamin D3] 5,000 unit PO DAILY 01/09/16 11/09/17 Fexofenadine HCl [Sindy Allergy] 180 mg PO DAILY 02/11/17 11/09/17 L.acidoph,Paracasei, B.lactis 1 cap PO DAILY 02/11/17 11/09/17 [Probiotic] Mirabegron [Myrbetriq] 50 mg PO DAILY 02/11/17 11/09/17 Calcium Carbonate [Calcium] 600 mg PO DAILY 10/28/17 11/09/17 Stool Softner 4 tab PO HS 10/28/17 11/09/17 Previous Rx's Medication Instructions Recorded Apixaban [Eliquis] 2.5 mg PO BID #30 tab 11/04/17 Docusate [Colace] 100 mg PO DAILY #30 capsule 11/05/17 HYDROcodone/APAP 7.5-325MG [[place] 1 each PO Q6HR PRN #28 tab 11/05/17 7.5] Losartan/Hydrochlorothiazide 1 tab PO QAM #0 11/05/17 [Hyzaar 100-25 Tablet] traMADol HCl [Ultram] 50 mg PO Q6H PRN #28 tab 11/05/17 Allergies Allergy/AdvReac Type Severity Reaction Status Date / Time Sulfa (Sulfonamide AdvReac migraine Verified 11/09/17 11:37 Antibiotics) Review of Systems ROS Statement: Those systems with pertinent positive or pertinent negative responses have been documented in the HPI. ROS Other: All systems not noted in ROS Statement are negative. Past Medical History Past Medical History: Hypertension, Osteoarthritis (OA) Additional Past Medical History / Comment(s): HX OF MIGRAINE HEADACHES History of Any Multi-Drug Resistant Organisms: None Reported Past Surgical History: Section, Joint Replacement, Orthopedic Surgery Additional Past Surgical History / Comment(s): PVO CLOSURE, LEFT SHOULDER REPLACEMENT, RIGHT KNEE REPLACEMENT, RT FOOT BUNION SX, LASIK EVELYN EYES, left knee replacement Past Anesthesia/Blood Transfusion Reactions: Postoperative Nausea & Vomiting ( PONV) Additional Past Anesthesia/Blood Transfusion Reaction / Comment(s): son and daughter severe PONV Past Psychological History: No Psychological Hx Reported Smoking Status: Former smoker Past Alcohol Use History: Rare Past Drug Use History: None Reported - Past Family History Mother Family Medical History: Dementia, Diabetes Mellitus Father Family Medical History: Cancer Additional Family Medical History / Comment(s): NON-HODGKINS LYMPHOMA General Exam - General Exam Comments Initial Comments: Left knee basia in place, mild bleeding decreased range of motion, severe pain and swelling, patient is no ability to extend Limitations: physical limitation General appearance: alert, in no apparent distress Head exam: Present: atraumatic, normocephalic, normal inspection Eye exam: Present: normal appearance, PERRL, EOMI. Absent: scleral icterus, conjunctival injection, periorbital swelling ENT exam: Present: normal exam, mucous membranes moist Neck exam: Present: normal inspection. Absent: tenderness, meningismus, lymphadenopathy Respiratory exam: Present: normal lung sounds bilaterally. Absent: respiratory distress, wheezes, rales, rhonchi, stridor Cardiovascular Exam: Present: regular rate, normal rhythm, normal heart sounds. Absent: systolic murmur, diastolic murmur, rubs, gallop, clicks GI/Abdominal exam: Present: soft, normal bowel sounds. Absent: distended, tenderness, guarding, rebound, rigid Extremities exam: Present: normal inspection, full ROM, normal capillary refill. Absent: tenderness, pedal edema, joint swelling, calf tenderness Back exam: Present: normal inspection Neurological exam: Present: alert, oriented X3, CN II-XII intact Psychiatric exam: Present: normal affect, normal mood Skin exam: Present: warm, dry, intact, normal color. Absent: rash Course Vital Signs 11/09/17 11:34 Temperature 98.6 F Pulse Rate 98 Respiratory 18 Rate Blood Pressure 134/85 O2 Sat by Pulse 93 L Oximetry - Reevaluation(s) Reevaluation #1: 11/09/17 14:[address] Munoz for Dr. Puga, will mobilize left knee and patient can follow-up with orthopedics Medical Decision Making - Radiology Data Radiology results: report reviewed (CT brain C-spine negative x-ray left knee does show possible quadriceps tendon rupture), image reviewed Disposition Clinical Impression: Fall, Left knee pain, Quadriceps tendon rupture, Postoperative pain of left knee Disposition: HOME SELF-CARE Condition: Fair Instructions: Knee Immobilizer (ED), Tendon Rupture (ED) Is patient prescribed a controlled substance at d/c from ED?: No Referrals: Susannah Holley MD [Primary Care Provider] - 1-2 days
[2017-11-09] MEDS ORDERED: CEPHALEXIN 500 MG CAP PO STA (14:16)
[2017-11-09] MEDS ORDERED: HYDROcodone/APAP 5-325MG 1 EACH TAB PO STA (14:16)
== END 2017-11-09 15:01 | disposition home or self-care (01) ==
LOC: EC 11:31
DX: S76.112A Strain of left quadriceps muscle, fascia and tendon, initial encounter (principal); G89.18 Other acute postprocedural pain; M25.562 Pain in left knee; R51 Headache; M54.2 Cervicalgia; Z87.891 Personal history of nicotine dependence; Z79.899 Other long term (current) drug therapy; Z88.2 Allergy status to sulfonamides; Z96.653 Presence of artificial knee joint, bilateral; W01.10XA Fall on same level from slipping, tripping and stumbling with subsequent striking against unspecified object, initial encounter; Y93.89 Activity, other specified; Y92.002 Bathroom of unspecified non-institutional (private) residence as the place of occurrence of the external cause
CPT/HCPCS: 99284; 73562; 72125; 70450; L1830

== ENCOUNTER 2017-11-18 09:57 | Inpatient (IN) | payer BC, MEDICARE ==
[2017-11-14 12:02] VITALS: BMI 40.2
--- NOTE | 2017-11-17 10:47 | HP ---
HISTORY AND PHYSICAL REASON FOR ADMISSION: Surgery 11/18/2017 HISTORY OF PRESENT ILLNESS: Mar Grigsby is a 77-year-old patient who underwent a left total knee arthroplasty on 12/04/2017. She was at her house, lost her balance, traumatically hyperflexed the left knee, injuring it. She was seen in the office and noted to have a clinical quadriceps tendon tear/rupture. I recommended repair. The procedure, risks, complications, benefits, and recovery were discussed. She was agreeable. Consent was obtained. She had been preoperatively cleared for total knee arthroplasty by Dr. Susannah Holley. PAST MEDICAL HISTORY: Hypertension. PAST SURGICAL HISTORY: Right total knee arthroplasty. Left total knee arthroplasty, left shoulder arthroplasty. MEDICATIONS: Losartan, multivitamin, Eliquis. ALLERGIES: SULFA. SOCIAL HISTORY: The patient denies tobacco use. PHYSICAL EVALUATION: Left knee, her incision is stable. There is no evidence for infective process. She is unable to extend her knee. There is obvious palpable defect of the distal quadriceps tendon. Homans and Primo are negative. Distal neurovascular exam is intact. RADIOGRAPHS: Radiographs of the left knee revealed a stable appearing total knee arthroplasty. IMPRESSION: 1. Left knee quadriceps tendon rupture. 2. Left total knee arthroplasty. 3. Hypertension. PLAN: Left knee quadriceps tendon repair. Surgery scheduled for 11/18/2017. MMODL / IJN: [id number] /
[~2017-11-18 09:57] MED LIST changes: +ACETAMINOPHEN TAB 500 MG TAB PO ONE; -LIDOCAINE 1% 20 ML VIAL (10MG/ML) FOR IV START INTRADERMA PRN; +MELOXICAM 7.5 MG TAB PO ONE; +MIDAZOLAM 2 MG/2 ML VIAL IV PRN
[2017-11-18] MEDS: LACTATED RINGERS 1,000 ML IV SCH ×3 (10:28→12:22)
[2017-11-18] MEDS ORDERED: LIDOCAINE 1% 20 ML VIAL (10MG/ML) FOR IV START INTRADERMA ONE (10:28)
[2017-11-18] MEDS: ONDANSETRON 4 MG/2 ML VIAL IVP ONE ×2 (10:34→14:51)
[2017-11-18] MEDS: DEXAMETHASONE SOD PHOSPHATE 10 MG/ML 1 ML VIAL IV ONE ×2 (10:34→14:50)
[2017-11-18 10:38] LABS: HCT 42.4 % (34.0-46.0); MCH 30.5 pg (25.0-35.0); MCHC 33.1 g/dL (31.0-37.0); MCV 92.1 fL (80.0-100.0); Mean Platelet Volume 6.8; Platelet Count 316 k/uL (150-450); RDW 13.6 % (11.5-15.5)
[2017-11-18] MEDS ORDERED: MIDAZOLAM 2 MG/2 ML VIAL ONE (12:24)
[2017-11-18] MEDS ORDERED: fentaNYL (PF) 50 MCG/ML 2 ML AMP ONE (12:24)
[2017-11-18] MEDS ORDERED: ROPIVACAINE 246.25 MG, EPINEPHrine 0.5 MG, KETOROLAC 30 MG, cloNIDine HCL/PF 80 MCG, WA... MISCELLANE ONE ×5 (12:34)
[2017-11-18] MEDS ORDERED: ACETAMINOPHEN TAB 325 MG TAB PO PRN (13:11)
[2017-11-18] MEDS ORDERED: MAGNESIUM HYDROXIDE 2,400 MG/10 ML CUP PO PRN (13:11)
[2017-11-18] MEDS ORDERED: MORPHINE SULFATE 2 MG/ML SYRINGE IVP PRN ×2 (13:11)
[2017-11-18] MEDS ORDERED: NALOXONE 0.4 MG/ML 1 ML VIAL IV PRN (13:11)
[2017-11-18] MEDS ORDERED: MORPHINE SULFATE 2 MG/ML SYRINGE IV PRN (13:11)
--- NOTE | 2017-11-18 13:40 | P.OP ---
Date of Procedure: 11/18/17 Preoperative Diagnosis: Left knee quadriceps tendon tear Postoperative Diagnosis: Left knee quadriceps tendon tear Procedure(s) Performed: Left knee quadriceps tendon repair Anesthesia: local, spinal Surgeon: Luis Fink Central Office Inspector #1: Linus Enriquez Estimated Blood Loss (ml): 10 Pathology: none sent Condition: stable Disposition: PACU Indications for Procedure: 77-year-old patient who had recently undergone left total knee arthroplasty. She traumatically fell try to be flexing the left knee and was seen for evaluation. She is clinically noted to have a quadriceps tendon tear. I recommended open repair. I discussed the procedure, risks, complications and recovery. The patient was agreeable and consent was obtained. Operative Findings: See description of procedure Description of Procedure: The patient was taken to the operative suite. Patient underwent a spinal anesthetic by the department of anesthesia. Patient received preoperative IV antibiotics. A well-padded tourniquet was placed proximal left thigh. Left lower extremity was now prepped and draped in the normal sterile orthopedic fashion. The extremity was elevated and tourniquet was insufflated to 300. I made an incision over the previous cicatrix sharply through skin. Dissection taken down to the extensor mechanism. There was complete tear of the quadriceps tendon off of the superior pole the patella. It was a good cup cuff of tissue remaining along the superior pole the patella. There was also a tear of the medial retinaculum where the repair had been done. I removed all residual suture. I irrigated the wound out copiously. I now checked the implants the appeared stable. I now repaired the quadriceps tendon utilizing multiple #5 Ethibond sutures and both horizontal mattress and simple interrupted suture pattern. I checked the repair and it was stable. I repaired the medial retinaculum with a couple of Ethibond sutures. I now reinforcing entire repair with multiple simple interrupted #1 Vicryl sutures. I checked the repair to 90 of flexion was stable. The wound was irrigated with saline solution. The subcu soft tissues were repaired in layers with 2-0 Vicryl. The skin is proximal skin basia. The subcu soft tissues had been infiltrated local analgesic. We applied sterile dressings followed by loose web roll and Unruly bandage. The patient's was placed into a knee immobilizer. The patient was transferred to recovery stable condition. Juan R DUNN assisted with the procedure.
[2017-11-18] MEDS: HYDROcodone/APAP 7.5-325MG 1 EACH TAB PO PRN ×2 (16:16→21:04)
[2017-11-18] MEDS: traMADol 50 MG TAB PO SCH ×2 (19:01→22:20)
[2017-11-18] MEDS: SENNOSIDES-DOCUSATE SODIUM 1 EACH TAB PO SCH (21:04)
[2017-11-18] MEDS: ceFAZolin IN SWFI 2 GM/20 ML SYRINGE IVP SCH (22:11)
[2017-11-19] MEDS: HYDROcodone/APAP 7.5-325MG 1 EACH TAB PO PRN ×3 (05:13→19:51)
[2017-11-19] MEDS: ceFAZolin IN SWFI 2 GM/20 ML SYRINGE IVP SCH (05:13)
[2017-11-19] MEDS: LACTATED RINGERS 1,000 ML IV SCH (07:52)
[2017-11-19 07:53] LABS: Basophils % (A) 1 %; Eosinophils # (A) 0.1 k/uL (0-0.7); Eosinophils % (A) 1 %; HCT 36.1 % (34.0-46.0); HGB 11.6 gm/dL (11.4-16.0); Lymphocytes # (A) 1.3 k/uL (1.0-4.8); Lymphocytes % (A) 28 %; MCH 30.2 pg (25.0-35.0); MCHC 32.1 g/dL (31.0-37.0); MCV 94.2 fL (80.0-100.0); Mean Platelet Volume 6.6; Monocytes # (A) 0.3 k/uL (0-1.0); Monocytes % (A) 7 %; Neutrophils # (A) 2.8 k/uL (1.3-7.7); Neutrophils % (A) 60 %; Platelet Count 280 k/uL (150-450); RBC 3.83 m/uL (3.80-5.40); RDW 13.6 % (11.5-15.5); WBC 4.6 k/uL (3.8-10.6)
[2017-11-19] MEDS: traMADol 50 MG TAB PO SCH ×4 (08:39→21:45)
[2017-11-19] MEDS: ENOXAPARIN 30 MG/0.3 ML SYRINGE SQ SCH ×2 (08:39→21:00)
[2017-11-19] MEDS: FAMOTIDINE 20 MG TAB PO SCH (08:39)
--- NOTE | 2017-11-19 08:58 | P.PN ---
Subjective Progress Note Date: 11/19/17 Principal diagnosis: Status post left quadriceps tendon repair Patient seen today resting in her hospital bed, she appears comfortable. Her pain is controlled at this time. She denies any headaches, lightheadedness, chest pain or shortness of breath Objective - Vital Signs Vital signs: Vital Signs Temp 98.4 F 11/19/17 07:00 Pulse 69 11/19/17 07:00 Resp 14 11/19/17 07:00 BP 106/64 11/19/17 07:00 Pulse Ox 97 11/19/17 07:00 Intake & Output 11/18/17 11/19/17 11/19/17 18:59 06:59 18:59 Intake Total 750 900 Output Total 115 150 Balance 635 750 Weight 99.79 kg Intake: IV 750 Intake, IV Titration 900 Amount Lactated Ringers 1,000 ml 900 @ 40 mls/hr IV .Q24H [facility] Rx#:[id number] Output: Urine 105 150 Estimated Blood Loss 10 Other: Voiding Method Indwelling Catheter Indwelling Catheter Indwelling Catheter - Exam Left lower extremity: Incision is clean, dry, and intact. Roberta are in good position. There is minimal soft tissue swelling and ecchymosis surrounding the medial and lateral aspects of the incision. Calf is soft, no tenderness with palpation. Plantar flexion, dorsiflexion, EHL, FHL are intact. Sensory exam to light touch throughout the extremity is intact, dorsal pedis pulses 2+. - Labs CBC & Chem 7: 11/19/17 06:43 11/18/17 10:28 Assessment and Plan Plan: Assessment: Postoperative day 1 status post left quadriceps tendon repair plan Plan: Pain control, continue current medication GI and DVT prophylaxis, continue current subcu medication Daily dressing changes Ice and elevate often Toe-touch weightbearing with walker Utilizing the immobilizer at all times Discharge planning: Patient will likely be discharged to rehab the next few days Time with Patient: Less than 30
[2017-11-19 10:27] LABS: ALT 21 U/L (9-52); AST 13 U/L (14-36); Albumin 3.2 g/dL (3.5-5.0); Alkaline Phosphatase 41 U/L (38-126); Anion Gap 10 mmol/L; Blood Urea Nitrogen 23 mg/dL (7-17); Carbon Dioxide 30 mmol/L (22-30); Chloride 98 mmol/L (98-107); Glucose 88 mg/dL (74-99); Potassium 3.6 mmol/L (3.5-5.1); Sodium 138 mmol/L (137-145); Total Bilirubin 0.3 mg/dL (0.2-1.3); Total Protein 5.6 g/dL (6.3-8.2)
[2017-11-19] MEDS: ONDANSETRON 4 MG/2 ML VIAL IVP PRN (11:04)
--- NOTE | 2017-11-19 11:32 | P.CONS ---
History of Present Illness - Reason for Consult Consult date: 11/19/17 Medical management Requesting physician: Luis Fink - Chief Complaint Left quadricep tendon tear - History of Present Illness This is a 77-year-old patient of Dr. Holley who is status post left knee quadricep tendon tear repair. This patient recently under went a left total knee arthroplasty on November 04. Patient stated she tripped and fell at home and hyperflexed her knee. She followed up with Dr. Oh in office and was found to found have a quadricep tendon tear. Patient has a significant history for hypertension and osteoarthritis. At this time patient is resting comfortably in bed with minimal complaints of pain. Dressing to left knee is clean dry and intact and orthopedic brace is in place. Patient denies chest pain or shortness of breath at this time. Denies nausea vomiting or urinary symptoms Review of Systems Refer to HPI otherwise unremarkable Past Medical History Past Medical History: Hypertension, Osteoarthritis (OA) Additional Past Medical History / Comment(s): HX OF MIGRAINE HEADACHES History of Any Multi-Drug Resistant Organisms: None Reported Past Surgical History: Section, Joint Replacement, Orthopedic Surgery Additional Past Surgical History / Comment(s): PVO CLOSURE done about 11 years ago, LEFT SHOULDER REPLACEMENT, RIGHT KNEE REPLACEMENT, RT FOOT BUNION SX, LASIK EVELY[place] EYES, left knee replacement Past Anesthesia/Blood Transfusion Reactions: Family History of Problems w/ Anesthesia, Postoperative Nausea & Vomiting (PONV) Additional Past Anesthesia/Blood Transfusion Reaction / Comm: son and daughter severe PONV Past Psychological History: No Psychological Hx Reported Smoking Status: Former smoker Past Alcohol Use History: Rare Additional Past Alcohol Use History / Comment(s): SMOKED FOR 2-3 YRS IN TEENS Past Drug Use History: None Reported - Past Family History Mother Family Medical History: Dementia, Diabetes Mellitus Father Family Medical History: Cancer Additional Family Medical History / Comment(s): NON-HODGKINS LYMPHOMA Medications and Allergies Home Medications Medication Instructions Recorded Confirmed Type Ascorbic Acid [Vitamin C] 1,000 mg PO DAILY 01/04/15 11/18/17 History Multivitamins, Thera [Multivitamin 1 tab PO DAILY 01/04/15 11/18/17 History (formulary)] Cholecalciferol [Vitamin D3] 5,000 unit PO DAILY 01/09/16 11/18/17 History Fexofenadine HCl [Sindy Allergy] 180 mg PO DAILY 02/11/17 11/18/17 History L.acidoph,Paracasei, B.lactis 1 cap PO DAILY 02/11/17 11/18/17 History [Probiotic] Mirabegron [Myrbetriq] 50 mg PO DAILY 02/11/17 11/18/17 History Calcium Carbonate [Calcium] 600 mg PO DAILY 10/28/17 11/18/17 History Apixaban [Eliquis] 2.5 mg PO BID #30 tab 11/04/17 11/18/17 Rx Docusate [Colace] 100 mg PO DAILY #30 capsule 11/05/17 11/18/17 Rx HYDROcodone/APAP 7.5-325MG [M[place]it 1 each PO Q6HR PRN #28 tab 11/05/17 11/18/17 Rx 7.5] Losartan/Hydrochlorothiazide 1 tab PO QAM #0 11/05/17 11/18/17 Rx [Hyzaar 100-25 Tablet] traMADol HCl [Ultram] 50 mg PO Q6H PRN #28 tab 11/05/17 11/18/17 Rx Cephalexin [Keflex] 500 mg PO Q6HR #30 cap 11/09/17 11/18/17 Rx Allergies Allergy/AdvReac Type Severity Reaction Status Date / Time Sulfa (Sulfonamide AdvReac migraine Verified 11/18/17 10:10 Antibiotics) Physical Exam Vitals: Vital Signs Temp Pulse Pulse Resp BP BP Pulse Ox 11/19/17 07:00 98.4 F 69 14 106/64 97 11/19/17 00:56 98.4 F 83 16 133/68 92 L 11/18/17 19:20 97.3 F L 90 14 135/65 94 L 11/18/17 15:45 88 14 148/63 97 11/18/17 15:30 80 14 150/65 97 11/18/17 15:15 85 14 130/86 92 L 11/18/17 15:00 80 14 118/67 96 11/18/17 14:45 79 14 116/55 93 L 11/18/17 14:30 85 14 115/64 92 L 11/18/17 14:27 88 12 110/57 94 L 11/18/17 14:15 78 14 110/57 92 L 11/18/17 14:14 88 16 116/58 96 11/18/17 14:00 93 14 107/55 90 L 11/18/17 13:49 97.4 F L 94 16 111/54 92 L Intake and Output 11/18/17 11/19/17 11/19/17 22:59 06:59 14:59 Intake Total 200 700 Output Total 150 Balance 200 550 Intake: Intake, IV Titration 200 700 Amount Lactated Ringers 1,000 ml 200 700 @ 40 mls/hr IV .Q24H [facility] Rx#:[id number] Output: Urine 150 Other: Voiding Method Indwelling Catheter Indwelling Catheter Head normocephalic Neck supple Lungs clear to auscultation bilaterally no wheezing or crackles Heart regular rate and rhythm S1-S2, no rub or gallop Abdomen is soft nontender nondistended positive bowel sounds no hepatosplenomegaly Extremities no edema. Left knee dressing clean dry and intact. left leg brace in place Neuro alert and orientated to 3 Results CBC & Chem 7: 11/19/17 06:43 11/19/17 06:43 Labs: Abnormal Lab Results - Last 24 Hours (Table) 11/19/17 Range/Units 06:43 BUN 23 H (7-17) mg/dL AST 13 L (14-36) U/L Total Protein 5.6 L (6.3-8.2) g/dL Albumin 3.2 L (3.5-5.0) g/dL Assessment and Plan Assessment: 1. Status post left quadricep tendon repair. Patient underwent total left knee replacement on November 04. Patient fell at home and developed a left quadricep tendon tear. Currently followed by Ortho surgical services. DVT prophylaxis Lovenox 30mg every 12 per Ortho. Pain management per surgical services 2. History of hypertension home dose of Hyzaar reordered. 3. History of osteoarthritis GI prophylaxis Pepcid, DVT prophylaxis lovenox. Into for this consult we will continue to follow throughout. Time with Patient: Greater than 30 (Greater than 60% of the total time spent in counseling and coordination of care.I performed an examination of the patient and discussed their management with the Nurse Practitioner. I have reviewed the Nurse Practitioner's notes and agree with the documented findings and plan of care)
[2017-11-19] MEDS: LORATADINE 10 MG TAB PO SCH (13:31)
[2017-11-19] MEDS: SENNOSIDES-DOCUSATE SODIUM 1 EACH TAB PO SCH (21:00)
[2017-11-20] MEDS ORDERED: ONDANSETRON 4 MG/2 ML VIAL ONE (04:00)
[2017-11-20] MEDS: LACTATED RINGERS 1,000 ML IV SCH (05:59)
[2017-11-20 08:56] LABS: Basophils % (A) 1 %; Eosinophils # (A) 0.2 k/uL (0-0.7); Eosinophils % (A) 4 %; HGB 11.5 gm/dL (11.4-16.0); Lymphocytes # (A) 1.1 k/uL (1.0-4.8); Lymphocytes % (A) 21 %; MCH 30.2 pg (25.0-35.0); MCV 94.3 fL (80.0-100.0); Mean Platelet Volume 6.7; Monocytes # (A) 0.3 k/uL (0-1.0); Monocytes % (A) 6 %; Neutrophils # (A) 3.4 k/uL (1.3-7.7); Neutrophils % (A) 67 %; Platelet Count 259 k/uL (150-450); RBC 3.81 m/uL (3.80-5.40); RDW 13.3 % (11.5-15.5); WBC 5.1 k/uL (3.8-10.6)
[2017-11-20] MEDS: LOSARTAN-HCTZ 50-12.5 MG 1 EACH TAB PO SCH (08:59)
[2017-11-20] MEDS: ASCORBIC ACID 500 MG TAB PO SCH (08:59)
[2017-11-20] MEDS: CHOLECALCIFEROL 1,000 UNIT TAB PO SCH (08:59)
[2017-11-20] MEDS: CALCIUM CARBONATE 500 MG CHEWABLE PO SCH (08:59)
[2017-11-20] MEDS: ENOXAPARIN 30 MG/0.3 ML SYRINGE SQ SCH ×2 (09:00→21:05)
[2017-11-20] MEDS: FAMOTIDINE 20 MG TAB PO SCH (09:00)
[2017-11-20] MEDS: traMADol 50 MG TAB PO SCH ×4 (09:00→21:31)
[2017-11-20] MEDS ORDERED: LORATADINE 10 MG TAB PO SCH (09:00)
[2017-11-20] MEDS: LORATADINE 10 MG TAB PO SCH (09:00)
[2017-11-20 09:14] LABS: ALT 21 U/L (9-52); AST 16 U/L (14-36); Albumin 3.3 g/dL (3.5-5.0); Alkaline Phosphatase 42 U/L (38-126); Anion Gap 9 mmol/L; Blood Urea Nitrogen 18 mg/dL (7-17); Calcium 8.9 mg/dL (8.4-10.2); Carbon Dioxide 30 mmol/L (22-30); Chloride 97 mmol/L (98-107); Glucose 96 mg/dL (74-99); Sodium 136 mmol/L (137-145); Total Bilirubin 0.4 mg/dL (0.2-1.3); Total Protein 5.7 g/dL (6.3-8.2)
--- NOTE | 2017-11-20 10:58 | P.PN ---
Subjective Progress Note Date: 11/20/17 Principal diagnosis: Status post left quadriceps tendon repair Patient seen today resting in her hospital bed, she appears comfortable. Her pain is controlled at this time. She denies any headaches, lightheadedness, chest pain or shortness of breath Objective - Vital Signs Vital signs: Vital Signs Temp 98.8 F 11/20/17 08:46 Pulse 87 11/20/17 08:46 Resp 18 11/20/17 08:46 BP 122/59 11/20/17 08:46 Pulse Ox 94 L 11/20/17 08:46 Intake & Output 11/19/17 11/20/17 11/20/17 18:59 06:59 18:59 Intake Total 320 640 100 Output Total 500 Balance -180 640 100 Weight 99.79 kg Intake: Intake, IV Titration 320 640 Amount Lactated Ringers 1,000 ml 320 640 @ 40 mls/hr IV .Q24H [facility] Rx#:[id number] Oral 100 Output: Urine 500 Uretheral (Berry) 300 Other: Voiding Method Indwelling Catheter Bedside Commode # Voids 3 - Exam Left lower extremity: Incision is clean, dry, and intact. [place] are in good position. There is minimal soft tissue swelling and ecchymosis surrounding the medial and lateral aspects of the incision. Calf is soft, no tenderness with palpation. Plantar flexion, dorsiflexion, EHL, FHL are intact. Sensory exam to light touch throughout the extremity is intact, dorsal pedis pulses 2+. - Labs CBC & Chem 7: 11/20/17 08:36 11/20/17 08:36 Labs: Abnormal Lab Results - Last 24 Hours (Table) 11/20/17 Range/Units 08:36 Sodium 136 L (137-145) mmol/L Chloride 97 L (98-107) mmol/L BUN 18 H (7-17) mg/dL Total Protein 5.7 L (6.3-8.2) g/dL Albumin 3.3 L (3.5-5.0) g/dL Assessment and Plan Plan: Assessment: Postoperative day #2 status post left quadriceps tendon repair plan Plan: Pain control, continue current medication GI and DVT prophylaxis, continue current subcu medication Daily dressing changes Ice and elevate often Toe-touch weightbearing with walker Utilizing the immobilizer at all times Discharge planning: Patient will likely be discharged to rehab tomorrow Time with Patient: Less than 30
[2017-11-20] MEDS: HYDROcodone/APAP 7.5-325MG 1 EACH TAB PO PRN ×2 (11:53→18:08)
[2017-11-20] MEDS: MULTIVITAMINS, THERA 1 EACH TAB PO SCH ×2 (11:53→11:55)
--- NOTE | 2017-11-20 13:08 | P.PN ---
Subjective Progress Note Date: 11/20/17 This is a 77-year-old patient of Dr. Holley who is status post left knee quadricep tendon tear repair. This patient recently under went a left total knee arthroplasty on November 04. Patient stated she tripped and fell at home and hyperflexed her knee. She followed up with Dr. hO in office and was found to found have a quadricep tendon tear. Patient has a significant history for hypertension and osteoarthritis. At this time patient is resting comfortably in bed with minimal complaints of pain. Dressing to left knee is clean dry and intact and orthopedic brace is in place. Patient denies chest pain or shortness of breath at this time. Denies nausea vomiting or urinary symptoms On 11/20/2017 patient currently resting comfortably in bed complaints at this time. She denies chest pain or shortness of breath. Denies nausea vomiting or diarrhea. At this time patient is complaining to be discharged to rehab tomorrow Objective - Vital Signs Vital signs: Vital Signs Temp 98.8 F 11/20/17 08:46 Pulse 87 11/20/17 08:46 Resp 18 11/20/17 08:46 BP 122/59 11/20/17 08:46 Pulse Ox 94 L 11/20/17 08:46 Intake & Output 11/19/17 11/20/17 11/20/17 18:59 06:59 18:59 Intake Total 320 640 100 Output Total 500 Balance -180 640 100 Weight 99.79 kg Intake: Intake, IV Titration 320 640 Amount Lactated Ringers 1,000 ml 320 640 @ 40 mls/hr IV .Q24H [facility] Rx#:[id number] Oral 100 Output: Urine 500 Uretheral (Berry) 300 Other: Voiding Method Indwelling Catheter Bedside Commode # Voids 3 - Labs CBC & Chem 7: 11/20/17 08:36 11/20/17 08:36 Labs: Abnormal Lab Results - Last 24 Hours (Table) 11/20/17 Range/Units 08:36 Sodium 136 L (137-145) mmol/L Chloride 97 L (98-107) mmol/L BUN 18 H (7-17) mg/dL Total Protein 5.7 L (6.3-8.2) g/dL Albumin 3.3 L (3.5-5.0) g/dL Assessment and Plan Assessment: 1. Status post left quadricep tendon repair. Patient underwent total left knee replacement on November 04. Patient fell at home and developed a left quadricep tendon tear. Currently followed by Ortho surgical services. DVT prophylaxis Lovenox 30mg every 12 per Ortho. Pain management per surgical services 2. History of hypertension home dose of Hyzaar reordered. 3. History of osteoarthritis GI prophylaxis Pepcid, DVT prophylaxis lovenox. Into for this consult we will continue to follow throughout. Plan to be discharged tomorrow to rehab. I performed an examination of the patient and discussed their management with the Nurse Practitioner. I have reviewed the Nurse Practitioner's notes and agree with the documented findings and plan of care
[2017-11-20] MEDS: SENNOSIDES-DOCUSATE SODIUM 1 EACH TAB PO SCH (21:03)
[2017-11-21] MEDS: HYDROcodone/APAP 7.5-325MG 1 EACH TAB PO PRN (00:45)
[2017-11-21] MEDS: ONDANSETRON 4 MG/2 ML VIAL IVP PRN (04:25)
[2017-11-21] MEDS: LACTATED RINGERS 1,000 ML IV SCH (05:51)
[2017-11-21 07:26] LABS: Basophils % (A) 1 %; Eosinophils # (A) 0.1 k/uL (0-0.7); Eosinophils % (A) 3 %; HCT 37.1 % (34.0-46.0); HGB 12.1 gm/dL (11.4-16.0); Lymphocytes # (A) 1.2 k/uL (1.0-4.8); Lymphocytes % (A) 30 %; MCH 30.3 pg (25.0-35.0); MCHC 32.5 g/dL (31.0-37.0); MCV 93.2 fL (80.0-100.0); Mean Platelet Volume 6.5; Monocytes # (A) 0.4 k/uL (0-1.0); Monocytes % (A) 9 %; Neutrophils # (A) 2.2 k/uL (1.3-7.7); Neutrophils % (A) 54 %; Platelet Count 246 k/uL (150-450); RBC 3.98 m/uL (3.80-5.40); RDW 13.2 % (11.5-15.5); WBC 4.1 k/uL (3.8-10.6)
[2017-11-21 07:50] LABS: ALT 22 U/L (9-52); AST 15 U/L (14-36); Albumin 3.2 g/dL (3.5-5.0); Alkaline Phosphatase 39 U/L (38-126); Anion Gap 9 mmol/L; Blood Urea Nitrogen 12 mg/dL (7-17); Calcium 9.1 mg/dL (8.4-10.2); Carbon Dioxide 33 mmol/L (22-30); Chloride 94 mmol/L (98-107); Glucose 99 mg/dL (74-99); Potassium 3.7 mmol/L (3.5-5.1); Sodium 136 mmol/L (137-145); Total Bilirubin 0.4 mg/dL (0.2-1.3); Total Protein 5.7 g/dL (6.3-8.2)
--- NOTE | 2017-11-21 08:52 | P.PN ---
Subjective Progress Note Date: 11/21/17 Principal diagnosis: Status post left quadriceps tendon repair Patient seen today resting in her hospital bed, she appears comfortable. Her pain is controlled at this time. She denies any headaches, lightheadedness, chest pain or shortness of breath Objective - Vital Signs Vital signs: Vital Signs Temp 99.7 F H 11/20/17 23:00 Pulse 90 11/20/17 23:00 Resp 18 11/20/17 23:00 BP 102/56 11/20/17 23:00 Pulse Ox 90 L 11/20/17 23:00 Intake & Output 11/20/17 11/21/17 11/21/17 18:59 06:59 18:59 Intake Total 320 500 Balance 320 500 Intake: Oral 320 500 Other: Voiding Method Toilet Bedside Commode # Voids 1 1 - Exam Left lower extremity: Incision is clean, dry, and intact. [place] are in good position. There is minimal soft tissue swelling and ecchymosis surrounding the medial and lateral aspects of the incision. Calf is soft, no tenderness with palpation. Plantar flexion, dorsiflexion, EHL, FHL are intact. Sensory exam to light touch throughout the extremity is intact, dorsal pedis pulses 2+. - Labs CBC & Chem 7: 11/21/17 06:58 11/21/17 06:58 Labs: Abnormal Lab Results - Last 24 Hours (Table) 11/20/17 11/21/17 Range/Units 08:36 06:58 Sodium 136 L 136 L (137-145) mmol/L Chloride 97 L 94 L (98-107) mmol/L Carbon Dioxide 33 H (22-30) mmol/L BUN 18 H (7-17) mg/dL Total Protein 5.7 L 5.7 L (6.3-8.2) g/dL Albumin 3.3 L 3.2 L (3.5-5.0) g/dL Assessment and Plan Plan: Assessment: Postoperative day #3 status post left quadriceps tendon repair plan Plan: Pain control, continue current medication GI and DVT prophylaxis, continue current subcu medication Daily dressing changes Ice and elevate often Toe-touch weightbearing with walker Utilizing the immobilizer at all times Discharge planning: Due to patient's initial admission status, she will have to spend 1 additional night for discharge to rehab tomorrow Time with Patient: Less than 30
[2017-11-21] MEDS: ENOXAPARIN 30 MG/0.3 ML SYRINGE SQ SCH ×2 (09:16→20:52)
[2017-11-21] MEDS: FAMOTIDINE 20 MG TAB PO SCH (09:16)
[2017-11-21] MEDS: traMADol 50 MG TAB PO SCH ×4 (09:16→22:55)
[2017-11-21] MEDS: CHOLECALCIFEROL 1,000 UNIT TAB PO SCH (09:17)
[2017-11-21] MEDS: ASCORBIC ACID 500 MG TAB PO SCH (09:17)
[2017-11-21] MEDS: CALCIUM CARBONATE 500 MG CHEWABLE PO SCH (09:17)
[2017-11-21] MEDS: LORATADINE 10 MG TAB PO SCH (09:18)
[2017-11-21] MEDS: LOSARTAN-HCTZ 50-12.5 MG 1 EACH TAB PO SCH (09:18)
[2017-11-21] MEDS ORDERED: LACTULOSE 20 GM/30 ML CUP PO ONE (10:31)
--- NOTE | 2017-11-21 10:37 | P.PN ---
Subjective Progress Note Date: 11/21/17 This is a 77-year-old patient of Dr. Holley who is status post left knee quadricep tendon tear repair. This patient recently under went a left total knee arthroplasty on November 04. Patient stated she tripped and fell at home and hyperflexed her knee. She followed up with Dr. Oh in office and was found to found have a quadricep tendon tear. Patient has a significant history for hypertension and osteoarthritis. At this time patient is resting comfortably in bed with minimal complaints of pain. Dressing to left knee is clean dry and intact and orthopedic brace is in place. Patient denies chest pain or shortness of breath at this time. Denies nausea vomiting or urinary symptoms On 11/20/2017 patient currently resting comfortably in bed complaints at this time. She denies chest pain or shortness of breath. Denies nausea vomiting or diarrhea. At this time patient is complaining to be discharged to rehab tomorrow 11/21/2017 patient lying in bed comfortably. Pain controlled. Patient has 1 more day of hospitalization due to insurance reasons before she can be placed at rehab. Patient denies any chest pain or shortness of breath. Denies any nausea or vomiting. No bowel movement for 4 days. Denies any difficulty urinating. Objective - Vital Signs Vital signs: Vital Signs Temp 98.1 F 11/21/17 09:27 Pulse 93 11/21/17 09:27 Resp 18 11/21/17 09:27 BP 115/74 11/21/17 09:27 Pulse Ox 90 L 11/20/17 23:00 Intake & Output 11/20/17 11/21/17 11/21/17 18:59 06:59 18:59 Intake Total 320 500 240 Balance 320 500 240 Intake: Oral 320 500 240 Other: Voiding Method Toilet Bedside Commode # Voids 1 1 1 - Exam Head normocephalic Neck supple Lungs clear to auscultation bilaterally no wheezing or crackles Heart regular rate and rhythm S1-S2, no rub or gallop Abdomen is soft nontender nondistended positive bowel sounds no hepatosplenomegaly Extremities no edema Neuro alert and orientated to 3 - Labs CBC & Chem 7: 11/21/17 06:58 11/21/17 06:58 Labs: Abnormal Lab Results - Last 24 Hours (Table) 07/12/18 Range/Units 06:58 Sodium 136 L (137-145) mmol/L Chloride 94 L (98-107) mmol/L Carbon Dioxide 33 H (22-30) mmol/L Total Protein 5.7 L (6.3-8.2) g/dL Albumin 3.2 L (3.5-5.0) g/dL Assessment and Plan Assessment: 1. Status post left quadricep tendon repair. Patient underwent total left knee replacement on November 04. Patient fell at home and developed a left quadricep tendon tear. Currently followed by Ortho surgical services. DVT prophylaxis Lovenox 30mg every 12 per Ortho. Pain management per surgical services 2. History of hypertension home dose of Hyzaar reordered. Blood pressure 115/ 74 this morning. Blood pressure on the lower side yesterday evening. We'll place parameters around blood pressure meds on hold. Blood pressure less than 120. Decrease Hyzaar requested see to 1 tablet daily instead of 2 tablets 3. History of osteoarthritis 4. Constipation: Continue stool softener we'll give lactulose. Anticipating discharge to [facility] tomorrow GI prophylaxis Pepcid, DVT prophylaxis lovenox.
[2017-11-21] MEDS: MULTIVITAMINS, THERA 1 EACH TAB PO SCH (12:01)
[2017-11-21] MEDS: SENNOSIDES-DOCUSATE SODIUM 1 EACH TAB PO SCH (20:52)
[2017-11-22 04:43] VITALS: RESP 18
[2017-11-22] MEDS: LACTATED RINGERS 1,000 ML IV SCH (05:49)
[2017-11-22 07:10] VITALS: BP 110/73; TEMP 98.1
[2017-11-22 07:42] LABS: Basophils % (A) 1 %; Eosinophils # (A) 0.3 k/uL (0-0.7); Eosinophils % (A) 7 %; HCT 37.6 % (34.0-46.0); HGB 12.1 gm/dL (11.4-16.0); Lymphocytes # (A) 1.2 k/uL (1.0-4.8); Lymphocytes % (A) 29 %; MCH 29.9 pg (25.0-35.0); MCHC 32.2 g/dL (31.0-37.0); MCV 92.9 fL (80.0-100.0); Mean Platelet Volume 6.7; Monocytes # (A) 0.4 k/uL (0-1.0); Monocytes % (A) 9 %; Neutrophils # (A) 2.1 k/uL (1.3-7.7); Neutrophils % (A) 52 %; Platelet Count 226 k/uL (150-450); RBC 4.05 m/uL (3.80-5.40); RDW 13.1 % (11.5-15.5)
[2017-11-22 07:52] LABS: ALT 28 U/L (9-52); AST 25 U/L (14-36); Albumin 3.3 g/dL (3.5-5.0); Alkaline Phosphatase 41 U/L (38-126); Anion Gap 7 mmol/L; Blood Urea Nitrogen 12 mg/dL (7-17); Calcium 9.2 mg/dL (8.4-10.2); Carbon Dioxide 33 mmol/L (22-30); Chloride 95 mmol/L (98-107); Glucose 92 mg/dL (74-99); Potassium 3.9 mmol/L (3.5-5.1); Sodium 135 mmol/L (137-145); Total Bilirubin 0.5 mg/dL (0.2-1.3); Total Protein 5.7 g/dL (6.3-8.2)
[2017-11-22] MEDS: ENOXAPARIN 30 MG/0.3 ML SYRINGE SQ SCH (08:02)
[2017-11-22] MEDS: CALCIUM CARBONATE 500 MG CHEWABLE PO SCH (08:02)
[2017-11-22] MEDS: ASCORBIC ACID 500 MG TAB PO SCH (08:02)
[2017-11-22] MEDS: FAMOTIDINE 20 MG TAB PO SCH (08:03)
[2017-11-22] MEDS: traMADol 50 MG TAB PO SCH (08:03)
[2017-11-22] MEDS: LORATADINE 10 MG TAB PO SCH (08:03)
[2017-11-22] MEDS: CHOLECALCIFEROL 1,000 UNIT TAB PO SCH (08:03)
[2017-11-22] MEDS ORDERED: LOSARTAN-HCTZ 50-12.5 MG 1 EACH TAB PO SCH (09:00)
--- NOTE | 2017-11-22 10:02 | P.PN ---
Subjective Progress Note Date: 11/22/17 Principal diagnosis: Status post left quadriceps tendon repair Patient seen today resting in her hospital bed, she appears comfortable. Her pain is controlled at this time. She denies any headaches, lightheadedness, chest pain or shortness of breath Objective - Vital Signs Vital signs: Vital Signs Temp 98.1 F 11/22/17 07:09 Pulse 84 11/22/17 07:09 Resp 18 11/22/17 07:09 BP 110/73 11/22/17 07:09 Pulse Ox 92 L 11/22/17 03:35 Intake & Output 11/21/17 11/22/17 11/22/17 18:59 06:59 18:59 Intake Total 760 400 Balance 760 400 Intake: Oral 760 400 Other: Voiding Method Toilet # Voids 1 2 - Exam Left lower extremity: Incision is clean, dry, and intact. [place] are in good position. There is minimal soft tissue swelling and ecchymosis surrounding the medial and lateral aspects of the incision. Calf is soft, no tenderness with palpation. Plantar flexion, dorsiflexion, EHL, FHL are intact. Sensory exam to light touch throughout the extremity is intact, dorsal pedis pulses 2+. - Labs CBC & Chem 7: 11/22/17 07:07 11/22/17 07:07 Labs: Abnormal Lab Results - Last 24 Hours (Table) 11/22/17 Range/Units 07:07 Sodium 135 L (137-145) mmol/L Chloride 95 L (98-107) mmol/L Carbon Dioxide 33 H (22-30) mmol/L Total Protein 5.7 L (6.3-8.2) g/dL Albumin 3.3 L (3.5-5.0) g/dL Assessment and Plan Plan: Assessment: Postoperative day #4 status post left quadriceps tendon repair plan Plan: Pain control, continue current medication GI and DVT prophylaxis, will discharge on Eliquis 2.5mg bid Daily dressing changes Ice and elevate often Toe-touch weightbearing with walker Utilizing the immobilizer at all times Discharge planning: hopeful discharge to rehab today Time with Patient: Less than 30
--- NOTE | 2017-11-22 10:06 | P.DS ---
Providers Date of admission: 11/18/2017 Expected date of discharge: 11/22/17 Attending physician: Luis Fink Consults: 11/18/17 19:13 Consult Physician Routine Consulting Provider: Haven Murphy Consult Reason/Comments: Medical Management Do you want consulting provider notified?: Yes Primary care physician: Susannah Holley Hospital Course: Date of admission: 11/18/2017 Date of discharge: 11/22/2017 Admission diagnosis: Status post left quadriceps tendon repair Discharge diagnosis: Same Attending physician: Dr. Fink Surgical procedures: Left quadriceps tendon repair Brief history: Patient is a 77-year-old female with a history of a recent left total knee arthroplasty. Patient had a falling injury at her home, she injured her left knee at that time. She was evaluated in the outpatient setting by Dr. Fink, was determined there was a tear involving the left quadriceps tendon. Treatment options were discussed, she was scheduled for a left quadriceps tendon repair. Hospital course: Details of patient's surgery can be found in operative report. Patient tolerated the procedure well and was subsequently transported to orthopedic floor. Patient's orthopeidc and medical care was provided daily. Patient had daily laboratory tests performed for evaluation of overall blood counts. Patient had daily physical therapy to include strengthening range of motion as well as education with walker ambulation. Patient was treated with Lovenox for their postoperative DVT prophylaxis during their inpatient stay. Patient was noted to have a relatively uneventful postoperative course. Patient reported satisfactory pain control with oral pain medications by postoperative day 0. Patient showed satisfactory progress with physical therapy. Patient moved steadily through the program and had no difficulty meeting the goals by postoperative day 4. Given patient's otherwise satisfactory course and having met physical therapy goals, plan is to discharge patient rehab on postoperative day 4. Discharge condition/disposition: Patient will be discharged to rehab in stable condition. Discharge medications: Instructions are given on resumption of patient's normal daily medications per primary care recommendation, in addition patient will be prescribed Mcdaniel 7.5 mg/25 mg, Eliquis 2.5mg. Discharge instructions: 1. Wound care and infection precautions, keep incision dry and covered while showering, no lotions, creams, moisturizers. No soaking, tubs, pools, hottubs. Do not scrub over the incision. 2. Weight-bear as tolerated with walker / cane until follow-up. 3. Ice and elevate when necessary. Do not exceed 20 minutes per hour with ice pack. 4. Utilize compression sleeve until seen at first follow up appointment. 5. Visiting nursing care. 6. Home physical therapy 7. Pain meds and anticoagulants per prescription. 8. Pain medication has potential to cause constipation. Increase oral fluid and fiber intake. Contact primary care provider if you have not had a bowel movement within 48 hours after discharge 9. No anti-inflammatory medication until discussed at first post operative visit, this including Motrin, Aleve, Mobic, Diclofenac 10. Follow up in office at 2 weeks postop with Juan R Enriquez PA-C 11. Follow up with your primary care doctor 7-10 days after discharge. 12. Contact [facility] with any questions, . Procedures: Left quadriceps tendon repair Patient Condition at Discharge: Good Plan - Discharge Summary Discharge Rx Participant: Yes New Discharge Prescriptions: New Apixaban [Eliquis] 2.5 mg PO BID #21 tab HYDROcodone/APAP 7.5-325MG [Mcdaniel 7.5] 1 - 2 each PO Q6HR PRN #56 tab PRN Reason: Pain No Action Multivitamins, Thera [Multivitamin (formulary)] 1 tab PO DAILY Ascorbic Acid [Vitamin C] 1,000 mg PO DAILY Cholecalciferol [Vitamin D3] 5,000 unit PO DAILY L.acidophParacasei, B.lactis [Probiotic] 1 cap PO DAILY Fexofenadine HCl [Sindy Allergy] 180 mg PO DAILY Mirabegron [Myrbetriq] 50 mg PO DAILY Calcium Carbonate [Calcium] 600 mg PO DAILY Docusate [Colace] 100 mg PO DAILY #30 capsule Losartan/Hydrochlorothiazide [Hyzaar 100-25 Tablet] 1 tab PO QAM #0 Cephalexin [Keflex] 500 mg PO Q6HR #30 cap Discharge Medication List Ascorbic Acid [Vitamin C] 1,000 mg PO DAILY 01/04/15 [History] Multivitamins, Thera [Multivitamin (formulary)] 1 tab PO DAILY 01/04/15 [History ] Cholecalciferol [Vitamin D3] 5,000 unit PO DAILY 01/09/16 [History] Fexofenadine HCl [Sindy Allergy] 180 mg PO DAILY 02/11/17 [History] L.acidoph,Paracasei, B.lactis [Probiotic] 1 cap PO DAILY 02/11/17 [History] Mirabegron [Myrbetriq] 50 mg PO DAILY 02/11/17 [History] Calcium Carbonate [Calcium] 600 mg PO DAILY 10/28/17 [History] Docusate [Colace] 100 mg PO DAILY #30 capsule 11/05/17 [Rx] Losartan/Hydrochlorothiazide [Hyzaar 100-25 Tablet] 1 tab PO QAM #0 11/05/17 [Rx ] Cephalexin [Keflex] 500 mg PO Q6HR #30 cap 11/09/17 [Rx] Apixaban [Eliquis] 2.5 mg PO BID #21 tab 11/22/17 [Rx] HYDROcodone/APAP 7.5-325MG [Mcdaniel 7.5] 1 - 2 each PO Q6HR PRN #56 tab 11/22/17 [ Rx] Follow up Appointment(s)/Referral(s): Susannah Holley MD [Primary Care Provider] - 1 Week Linus Enriquez PAC [PHYSICIAN BAR USEFUL OR BUSSER] - 12/04/17 2:30 pm Activity/Diet/Wound Care/Special Instructions: Discharge instructions: Presumably medications at discharge Pain medication and anticoagulation as prescribed Daily dressing changes Keep incision covered while showering Utilizing immobilizer at all times Please remove stitches at 2 weeks from surgery Toe-touch weightbearing on ambulating, utilize walker and knee immobilizer Follow-up in [facility] weeks at [facility] Discharge Disposition: TRANSFER TO SNF/ECF
--- NOTE | 2017-11-22 10:53 | XR ---
EXAMINATION TYPE: XR chest 2V DATE OF EXAM: 11/22/2017 COMPARISON: Prior chest x-ray 01/08/2016 HISTORY: Cough and wheeze TECHNIQUE: Frontal and lateral views of the chest are obtained. FINDINGS: There is a marked S-shaped thoracic lumbar scoliosis. Postop change noted to the left shou lder. No evident airspace disease, pneumothorax, or pleural effusion. Cardiac mediastinal silhouette, pulmonary vascularity and arielle are stable. I question bronchial wall thickening. Prominent lung volu me could be indicative of underlying COPD. Postprocedural changes noted to the heart likely post sept al defect repair device. IMPRESSION: Correlate for bronchitis, reactive airways disease, follow-up as indicated.
[2017-11-22] MEDS: IPRATROPIUM-ALBUTEROL 3 ML NEB INHALATION SCH ×2 (10:58→11:02)
[2017-11-22] MEDS: MULTIVITAMINS, THERA 1 EACH TAB PO SCH (11:02)
[2017-11-22 11:09] VITALS: PULSE 90
[2017-11-22] MEDS ORDERED: LEVOFLOXACIN 500 MG TAB PO SCH (12:00)
--- NOTE | 2017-11-22 12:10 | P.PN ---
Subjective Progress Note Date: 11/22/17 This is a 77-year-old patient of Dr. Holley who is status post left knee quadricep tendon tear repair. This patient recently under went a left total knee arthroplasty on November 04. Patient stated she tripped and fell at home and hyperflexed her knee. She followed up with Dr. Oh in office and was found to found have a quadricep tendon tear. Patient has a significant history for hypertension and osteoarthritis. At this time patient is resting comfortably in bed with minimal complaints of pain. Dressing to left knee is clean dry and intact and orthopedic brace is in place. Patient denies chest pain or shortness of breath at this time. Denies nausea vomiting or urinary symptoms On 11/20/2017 patient currently resting comfortably in bed complaints at this time. She denies chest pain or shortness of breath. Denies nausea vomiting or diarrhea. At this time patient is complaining to be discharged to rehab tomorrow 11/21/2017 patient lying in bed comfortably. Pain controlled. Patient has 1 more day of hospitalization due to insurance reasons before she can be placed at rehab. Patient denies any chest pain or shortness of breath. Denies any nausea or vomiting. No bowel movement for 4 days. Denies any difficulty urinating. 11/22/2017 patient reports that her pain is controlled. She has a productive cough this morning with congestion and some wheezing noted on exam. Chest x- ray ordered are reporting to correlate for bronchitis and reactive airway disease. She did have a low-grade temp of 99.1. Nebulizer treatments were ordered. She is on room air. She is a previous history of smoking and a bronchitis in the past. Denies any history of COPD or emphysema. She'll be placed on Levaquin and albuterol for her bronchitis. Patient be discharged to ECF later today Objective - Vital Signs Vital signs: Vital Signs Temp 98.1 F 11/22/17 07:09 Pulse 90 11/22/17 11:09 Resp 18 11/22/17 07:09 BP 110/73 11/22/17 07:09 Pulse Ox 92 L 11/22/17 03:35 Intake & Output 11/21/17 11/22/17 11/22/17 18:59 06:59 18:59 Intake Total 760 400 Balance 760 400 Intake: Oral 760 400 Other: Voiding Method Toilet # Voids 1 2 - Exam Head normocephalic Neck supple Lungs wheezing noted bilaterally Heart regular rate and rhythm S1-S2, no rub or gallop Abdomen is soft nontender nondistended positive bowel sounds no hepatosplenomegaly Extremities no edema Neuro alert and orientated to 3 - Labs CBC & Chem 7: 11/22/17 07:07 11/22/17 07:07 Labs: Abnormal Lab Results - Last 24 Hours (Table) 11/22/17 Range/Units 07:07 Sodium 135 L (137-145) mmol/L Chloride 95 L (98-107) mmol/L Carbon Dioxide 33 H (22-30) mmol/L Total Protein 5.7 L (6.3-8.2) g/dL Albumin 3.3 L (3.5-5.0) g/dL Assessment and Plan Assessment: 1. Status post left quadricep tendon repair. Patient underwent total left knee replacement on November 04. Patient fell at home and developed a left quadricep tendon tear. Currently followed by Ortho surgical services. Eliquis 2.5 Bid for DVT prophylaxis per orthopedics 2. History of hypertension home dose of Hyzaar reordered. Patient had lower blood pressures during this admission. Hyzaar was decreased to once a day. We' ll continue with parameters to hold for supple pressure less than 120 3. History of osteoarthritis 4. Constipation: Patient has had not had a bowel movement in 3-4 days. She has refused the lactulose. Denies abdominal pain denies any vomiting. She is passing gas. 2 stool softener 5. Acute tracheobronchitis: Chest x-ray showing evidence of bronchitis and reactive airway disease. Patient was placed on Levaquin 500 milligrams daily for 7 days and an albuterol inhaler as needed. Patient is medically stable for discharge to [facility]. We'll have her follow-up with her PCP in 1 week. I performed an examination of the patient and discussed their management with the physician Occupational Therapy Department Chair. I have reviewed the Physician Occupational Therapy Department Chair's notes and agree with the documented findings and plan of care
== END 2017-11-22 12:51 | DRG 502 ==
LOC: OR 09:57 → 3SUR 13:50 → OR 11-19 12:31 → 3SUR 11-19 12:31
PROVIDERS: ADMIT Orthopaedic Surgery; ATTEND Orthopaedic Surgery
PROC: 0LQM0ZZ Repair Left Upper Leg Tendon, Open Approach (ICD-10-PCS; principal; 2017-11-18 15:45)
DX: S76.112A Strain of left quadriceps muscle, fascia and tendon, initial encounter (principal); S76.812A Strain of other specified muscles, fascia and tendons at thigh level, left thigh, initial encounter; I10 Essential (primary) hypertension; J20.9 Acute bronchitis, unspecified; J45.909 Unspecified asthma, uncomplicated; K59.00 Constipation, unspecified; G43.909 Migraine, unspecified, not intractable, without status migrainosus; M19.90 Unspecified osteoarthritis, unspecified site; Z96.653 Presence of artificial knee joint, bilateral; Z96.612 Presence of left artificial shoulder joint; Z87.891 Personal history of nicotine dependence; Z79.01 Long term (current) use of anticoagulants; Z79.899 Other long term (current) drug therapy; Z88.2 Allergy status to sulfonamides; Z83.3 Family history of diabetes mellitus; Z80.7 Family history of other malignant neoplasms of lymphoid, hematopoietic and related tissues; Z82.0 Family history of epilepsy and other diseases of the nervous system; W01.0XXA Fall on same level from slipping, tripping and stumbling without subsequent striking against object, initial encounter; Y92.009 Unspecified place in unspecified non-institutional (private) residence as the place of occurrence of the external cause
CPT/HCPCS: 71046; 80053; 84132; 85025; 85027; 94640

== ENCOUNTER 2017-12-23 07:30 | Inpatient (IN) | payer MEDICARE, BC ==
[2017-12-20 09:56] VITALS: BMI 38.9
--- NOTE | 2017-12-22 13:14 | HP ---
HISTORY AND PHYSICAL DATE OF SERVICE: Surgery is scheduled for 12/23/2017. HISTORY: Mar Grigsby is a 77-year-old patient who had previously undergone left total knee arthroplasty on 11/04/2017. She sustained a quadriceps tendon rupture and subsequent underwent repair of that on 11/18/2017. Last week, she put some weight on her extremity, twisted her knee and felt a pop. She was seen in the office and noted to have a recurrent tear of the quadriceps tendon with possible involvement of medial retinaculum. I recommended open repair of the quadriceps tendon tear/retinaculum. The procedure, risks, complications, benefits, and recovery were discussed. Consent regarding the procedure was obtained. PAST MEDICAL HISTORY: Hypertension. PAST SURGICAL HISTORY: Right total knee arthroplasty, left total knee arthroplasty, left quadriceps tendon repair, left shoulder arthroscopy. MEDICATIONS: Daily medications are Celebrex, losartan, multivitamin. ALLERGIES: None reported. SOCIAL HISTORY: Patient denies current tobacco use. PHYSICAL EVALUATION: She has a well-healed anterior incision, left knee. There is a defect along the distal quadriceps tendon. She is unable to extend the extremity. Homans and Primo are negative. Her distal neurovascular exam is intact. Left knee radiographs revealed a stable-appearing total knee arthroplasty, but the patella does appear to be slightly everted as compared to previous x-rays. IMPRESSION: 1. Left knee quadriceps tendon tear. 2. History of left total knee arthroplasty. 3. Hypertension. PLAN: Left knee quadriceps tendon repair and possible medial retinacular repair. MMODL / IJN: [id number] /
[~2017-12-23 07:30] MED LIST changes: +HYDROmorphone 0.5 MG/0.5 ML SYRINGE IVP PRN; +LIDOCAINE 1% 20 ML VIAL (10MG/ML) FOR IV START INTRADERMA PRN; -MIDAZOLAM 2 MG/2 ML VIAL IV PRN; +ONDANSETRON 4 MG/2 ML VIAL IVP ONE; -fentaNYL (PF) 50 MCG/ML 2 ML AMP IV PRN
[2017-12-23] MEDS ORDERED: IV FLUID CONTINUATION 1,000 ML IV ONE (16:17)
[2017-12-23] MEDS ORDERED: PROPOFOL 10 MG/ML 20 ML VIAL IV ONE (17:38)
[2017-12-23] MEDS ORDERED: fentaNYL (PF) 50 MCG/ML 2 ML AMP ONE (17:38)
[2017-12-23] MEDS ORDERED: MIDAZOLAM 2 MG/2 ML VIAL ONE (17:38)
--- NOTE | 2017-12-23 19:35 | P.OP ---
Date of Procedure: 12/23/17 Preoperative Diagnosis: Left knee quadriceps tendon rupture Postoperative Diagnosis: 1. Left knee quadriceps tendon rupture 2. Left knee medial retinacular tear Procedure(s) Performed: 1. Repair left knee quadriceps tendon tear/rupture 2. Repair left knee medial retinacular tear Anesthesia: spinal Surgeon: Luis Fink Terminal Supervisor #1: Linus Enriquez Estimated Blood Loss (ml): 25 Pathology: none sent Condition: stable Disposition: PACU Indications for Procedure: 77-year-old patient seen with probable left knee quadriceps tendon rupture and possible medial retinacular tear. I recommended repair. I reviewed the procedure, risks, complications and recovery. Patient was agreeable. Consent was obtained. Operative Findings: see description of procedure Description of Procedure: The patient was taken to the operative suite. The patient underwent a spinal anesthetic by the department of anesthesia. The patient received preoperative IV antibiotics. A well-padded tourniquet was placed proximal left thigh. The left lower extremity was prepped and draped in the normal sterile orthopedic fashion. An incision was now made through the previous cicatrix sharply through skin. We immediately encountered synovial fluid. Once dissection was carried down we noted a complete rupture of the quadriceps tendon as well as a complete medial retinacular tear all the way down to the patellar tendon. I and Juan R DUNN began removed removing the substantial torn sutures. I began debriding out jagged edges of tissue. I could reapproximate the quadriceps tendon and the patella as her was some soft tissue attachment to the patella. I irrigated the wound out copiously with antibiotic irrigant. I now began repairing the quadriceps tendon with the assistance of Juan R DUNN helping with tensioning of the sutures and holding the extremity in appropriate position for the repair. The repair was performed utilizing 10 #5 Ethibond sutures as well as 2 #3 Vicryl sutures. The repair was under a bit of tension out size and to try to flex and knee as I did not notice repair would hold. The wound was irrigated with saline solution. I now began repairing subcu soft tissues in layers along with the assistance of Juan R DUNN. Skin basia utilized to approximate the skin. Sterile dressings were applied. Given this recurrent tear and the concern for the tissue quality I decided to cast the extremity. Juan R DUNN assisted with holding the leg well a long leg cast was applied by myself. The entire time the leg was held in full extension. I now created a window anteriorly with a cast saw and this was secured with Unruly bandage. Tourniquet had not been utilized. The patient was awakened, transferred to a bed and then recovery stable condition. Juan R DUNN assisted with this complex procedure.
[2017-12-23] MEDS ORDERED: HYDROmorphone 1 MG/ML 1 ML SYRINGE IVP PRN (19:36)
[2017-12-23] MEDS ORDERED: MAGNESIUM HYDROXIDE 2,400 MG/10 ML CUP PO PRN (19:36)
[2017-12-23] MEDS ORDERED: HYDROcodone/APAP 7.5-325MG 1 EACH TAB PO PRN ×2 (19:36→19:39)
[2017-12-23] MEDS ORDERED: NALOXONE 0.4 MG/ML 1 ML VIAL IV PRN (19:36)
[2017-12-23] MEDS ORDERED: ONDANSETRON 4 MG/2 ML VIAL IVP PRN (19:36)
[2017-12-23 20:55] LABS: Glucose,Whole Blood 89 mg/dL (75-99)
[2017-12-23] MEDS: SENNOSIDES-DOCUSATE SODIUM 1 EACH TAB PO SCH (21:50)
[2017-12-23] MEDS: HYDROmorphone 1 MG/ML 1 ML SYRINGE IVP PRN (22:23)
[2017-12-23] MEDS: LACTATED RINGERS 1,000 ML IV SCH (23:07)
[2017-12-23] MEDS: ceFAZolin IN SWFI 2 GM/20 ML SYRINGE IVP SCH (23:38)
[2017-12-24] MEDS: ACETAMINOPHEN TAB 325 MG TAB PO PRN ×4 (00:14→20:00)
[2017-12-24] MEDS: HYDROmorphone 1 MG/ML 1 ML SYRINGE IVP PRN (03:30)
[2017-12-24 07:15] LABS: Basophils # (A) 0.1 k/uL (0-0.2); Basophils % (A) 1 %; Eosinophils # (A) 0.1 k/uL (0-0.7); Eosinophils % (A) 1 %; HCT 41.9 % (34.0-46.0); HGB 12.8 gm/dL (11.4-16.0); Hypochromasia Slight; Lymphocytes # (A) 1.5 k/uL (1.0-4.8); Lymphocytes % (A) 18 %; MCH 28.5 pg (25.0-35.0); MCHC 30.6 g/dL (31.0-37.0); MCV 93.1 fL (80.0-100.0); Mean Platelet Volume 6.7; Monocytes # (A) 0.5 k/uL (0-1.0); Monocytes % (A) 6 %; Neutrophils % (A) 74 %; Platelet Count 260 k/uL (150-450); RBC 4.49 m/uL (3.80-5.40); RDW 13.7 % (11.5-15.5); WBC 8.2 k/uL (3.8-10.6)
[2017-12-24 07:31] LABS: Glucose,Whole Blood 102 mg/dL (75-99)
[2017-12-24] MEDS: RIVAROXABAN 10 MG TAB PO SCH (07:33)
[2017-12-24] MEDS: traMADol 50 MG TAB PO PRN ×3 (07:33→17:32)
[2017-12-24] MEDS: LACTATED RINGERS 1,000 ML IV SCH (08:40)
[2017-12-24] MEDS: ceFAZolin IN SWFI 2 GM/20 ML SYRINGE IVP SCH (08:41)
[2017-12-24] MEDS ORDERED: ALBUTEROL NEBULIZED 2.5 MG/3 ML INHALATION PRN (09:21)
--- NOTE | 2017-12-24 09:36 | P.CONS ---
History of Present Illness - Reason for Consult Consult date: 12/24/17 Medical management Requesting physician: Luis Fink - Chief Complaint left knee quadricep tendon repair - History of Present Illness This is 77-year-old patient of Dr. calzada. Patient recently underwent went of left total knee arthroplasty on 11/04/2017. Patient did sustain a quadricep tendon rupture and underwent repair on 11/18/2017. She was seen in the office last week and was noted to have a recurrent tear of the tendon with possible involvement of medial retinaculum. Patient is postop day 1 status post left knee quadricep tendon rupture repair and repair of the left knee medial retinacular tear with Dr. Fink. She has known past medical history of hypertension, right total knee arthroplasty, left total knee arthroplasty, left quadricep tendon repair, left shoulder arthroplasty and depression. At this time patient is resting comfortably in bed. Patient did state she had some nausea and vomitting post pain medication administration. She currently tolerating tramadol per surgical services. Patient denies chest pain or shortness of breath. Denies any urinary frequency or burning. Review of Systems please refer to HPI otherwise unremarkable Past Medical History Past Medical History: Hearing Disorder / Deafness, Hypertension, Osteoarthritis (OA) Additional Past Medical History / Comment(s): HX OF HOLE IN HEART WITH SURGICAL REPAIR., MIGRAINES, SCOLIOSIS, BACK PAIN., EVELYN HEARING AIDS., IMMOBILIZER LEFT KNEE., CURRENTLY AT [facility] # [phone] . History of Any Multi-Drug Resistant Organisms: None Reported Past Surgical History: Section, Joint Replacement, Orthopedic Surgery Additional Past Surgical History / Comment(s): PVO CLOSURE (2006)., LEFT SHOULDER REPLACEMENT, TOTAL RIGHT KNEE, RT FOOT BUNION , LASIK EYE SURGERY, TOTAL LEFT KNEE (11/04/17), LEFT KNEE TENDON REPAIR (11/18/17). Past Anesthesia/Blood Transfusion Reactions: Family History of Problems w/ Anesthesia, Postoperative Nausea & Vomiting (PONV) Additional Past Anesthesia/Blood Transfusion Reaction / Comm: son and daughter severe PONV Past Psychological History: No Psychological Hx Reported Smoking Status: Former smoker Past Alcohol Use History: Rare Additional Past Alcohol Use History / Comment(s): SMOKED FOR 2-3 YRS IN TEENS Past Drug Use History: None Reported - Past Family History Mother Family Medical History: Dementia, Diabetes Mellitus Father Family Medical History: Cancer Additional Family Medical History / Comment(s): NON-HODGKINS LYMPHOMA Medications and Allergies Home Medications Medication Instructions Recorded Confirmed Type Ascorbic Acid [Vitamin C] 1,000 mg PO DAILY 01/04/15 12/23/17 History Multivitamins, Thera [Multivitamin 1 tab PO DAILY 01/04/15 12/23/17 History (formulary)] Cholecalciferol [Vitamin D3] 5,000 unit PO DAILY 01/09/16 12/23/17 History Fexofenadine HCl [Sindy Allergy] 180 mg PO DAILY 02/11/17 12/23/17 History L.acidoph,Paracasei, B.lactis 1 cap PO DAILY 02/11/17 12/23/17 History [Probiotic] Mirabegron [Myrbetriq] 50 mg PO DAILY 02/11/17 12/23/17 History Calcium Carbonate [Calcium] 600 mg PO DAILY 10/28/17 12/23/17 History Albuterol Inhaler [Ventolin Hfa 1 - 2 puff INHALATION RT-Q6H PRN 11/22/17 Rx Inhaler] #1 inhaler Docusate [Colace] 100 mg PO BID #30 capsule 11/22/17 12/23/17 Rx Acetaminophen Tab [Tylenol Tab] 650 mg PO Q6H PRN 12/20/17 12/23/17 History Aspirin [Adult Low Dose Aspirin EC] 81 mg PO DAILY 12/20/17 12/23/17 History Furosemide [Lasix] 20 mg PO DAILY 12/20/17 12/23/17 History Losartan [Cozaar] 25 mg PO DAILY MDD hold for 12/20/17 12/23/17 History systolic < 100 Potassium Chloride [K-Tab ER] 10 meq PO DAILY 12/20/17 12/23/17 History traMADol HCL [Ultram] 50 mg PO Q4HR PRN 12/20/17 12/23/17 History Allergies Allergy/AdvReac Type Severity Reaction Status Date / Time Sulfa (Sulfonamide AdvReac migraine Verified 12/23/17 13:13 Antibiotics) Physical Exam Vitals: Vital Signs Temp Pulse Pulse Resp BP Pulse Ox 12/24/17 08:00 99 F 105 H 17 115/75 95 12/24/17 01:05 98.2 F 105 H 16 124/77 96 08/14/18 00:25 16 12/23/17 21:45 86 108/72 12/23/17 21:30 86 111/72 12/23/17 21:15 85 107/73 12/23/17 21:00 85 113/74 12/23/17 20:45 83 122/73 12/23/17 20:35 16 12/23/17 20:30 86 120/77 12/23/17 20:15 83 120/81 12/23/17 20:00 97.9 F 89 16 126/83 94 L 12/23/17 19:50 89 16 125/72 94 L 12/23/17 19:40 84 16 115/60 96 12/23/17 19:24 98.6 F 93 16 138/58 95 12/23/17 16:05 98.5 F 92 16 123/74 95 12/23/17 14:20 98.3 F 86 16 133/77 95 12/23/17 12:09 98.6 F 92 20 151/77 94 L Intake and Output 12/23/17 12/24/17 12/24/17 22:59 06:59 14:59 Intake Total 1250 750 Output Total 25 200 Balance 1225 750 -200 Intake: IV 550 Intake, IV Titration 400 400 Amount Lactated Ringers 1,000 ml 400 400 @ 50 mls/hr IV .Q20H [facility] Rx#:[id number] Oral 300 350 Output: Urine 200 Estimated Blood Loss 25 Other: Voiding Method Bedside Commode Bedside Commode Bedside Commode Bedpan # Voids 0 1 Head normocephalic Neck supple Lungs clear to auscultation bilaterally no wheezing or crackles Heart regular rate and rhythm S1-S2, no rub or gallop Abdomen is soft nontender nondistended positive bowel sounds no hepatosplenomegaly Extremities no edema. Dressing to left knee clean dry and intact Neuro alert and orientated to 3 Results CBC & Chem 7: 12/24/17 06:46 Labs: Abnormal Lab Results - Last 24 Hours (Table) 12/24/17 12/24/17 Range/Units 06:46 07:18 MCHC 30.6 L (31.0-37.0) g/dL POC Glucose (mg/dL) 102 H (75-99) mg/dL Assessment and Plan Assessment: 1. Status post left quadrant tendon repair with Dr. Fink. Patient is postop day 1. patient recently underwent total left knee arthroplasty on November 04. Patient also had previous tendon repair on 11/23. Patient currently on Xarelto 10 mg by mouth daily per surgical team. Pain management per surgical team. 2. History of hypertension. Home Lasix and Cozaar medications have been reordered 3. History of osteoarthritis GI prophylaxis Pepcid. DVT prophylaxis Xarelto Thank you for this consultation we'll continue to follow patient throughout stay. Patient anticipates discharge in the next 24-48 hours back to rehab facility in [facility]. Time with Patient: Greater than 30 (Greater than 60% of the total time spent in counseling and coordination of care. I performed an examination of the patient and discussed their management with the Nurse Practitioner. I have reviewed the Nurse Practitioner's notes and agree with the documented findings and plan of care)
[2017-12-24 09:59] LABS: ALT 22 U/L (9-52); AST 13 U/L (14-36); Albumin 3.4 g/dL (3.5-5.0); Alkaline Phosphatase 45 U/L (38-126); Anion Gap 7 mmol/L; Blood Urea Nitrogen 15 mg/dL (7-17); Calcium 9.6 mg/dL (8.4-10.2); Carbon Dioxide 28 mmol/L (22-30); Chloride 105 mmol/L (98-107); Glucose 102 mg/dL (74-99); Potassium 4.4 mmol/L (3.5-5.1); Sodium 140 mmol/L (137-145); Total Bilirubin 0.5 mg/dL (0.2-1.3); Total Protein 5.9 g/dL (6.3-8.2)
--- NOTE | 2017-12-24 15:43 | XR ---
EXAMINATION TYPE: XR knee limited LT DATE OF EXAM: 12/24/2017 COMPARISON: NONE TECHNIQUE: Two views submitted HISTORY: Post op FINDINGS: There is a prosthetic knee in near anatomic alignment. There is soft tissue edema and emphysema. Simms rgical basia noted. Overlying wrapping material limits bony detail. Soft tissue calcification super ior to the patella. IMPRESSION: 1. Postoperative change. Appears in near-anatomic alignment
[2017-12-24 19:50] LABS: Glucose,Whole Blood 103 mg/dL (75-99)
[2017-12-24] MEDS: SENNOSIDES-DOCUSATE SODIUM 1 EACH TAB PO SCH (20:02)
[2017-12-25] MEDS: traMADol 50 MG TAB PO PRN ×2 (01:25→08:24)
[2017-12-25] MEDS: LACTATED RINGERS 1,000 ML IV SCH (02:09)
[2017-12-25 07:11] LABS: Basophils % (A) 1 %; Eosinophils # (A) 0.3 k/uL (0-0.7); Eosinophils % (A) 5 %; HCT 36.9 % (34.0-46.0); HGB 11.8 gm/dL (11.4-16.0); Lymphocytes # (A) 1.6 k/uL (1.0-4.8); Lymphocytes % (A) 25 %; MCH 29.4 pg (25.0-35.0); MCHC 32.1 g/dL (31.0-37.0); MCV 91.5 fL (80.0-100.0); Monocytes # (A) 0.5 k/uL (0-1.0); Monocytes % (A) 8 %; Neutrophils # (A) 3.8 k/uL (1.3-7.7); Neutrophils % (A) 59 %; Platelet Count 233 k/uL (150-450); RBC 4.03 m/uL (3.80-5.40); RDW 13.7 % (11.5-15.5); WBC 6.4 k/uL (3.8-10.6)
[2017-12-25 07:33] LABS: ALT 18 U/L (9-52); AST 12 U/L (14-36); Alkaline Phosphatase 38 U/L (38-126); Anion Gap 4 mmol/L; Blood Urea Nitrogen 12 mg/dL (7-17); Calcium 9.2 mg/dL (8.4-10.2); Carbon Dioxide 31 mmol/L (22-30); Chloride 103 mmol/L (98-107); Glucose 99 mg/dL (74-99); Potassium 4.1 mmol/L (3.5-5.1); Sodium 138 mmol/L (137-145); Total Bilirubin 0.5 mg/dL (0.2-1.3); Total Protein 5.4 g/dL (6.3-8.2)
[2017-12-25] MEDS: RIVAROXABAN 10 MG TAB PO SCH (08:25)
[2017-12-25 08:39] VITALS: BP 118/68; PULSE 92; RESP 18; TEMP 98.2
[2017-12-25] MEDS ORDERED: FUROSEMIDE 20 MG TAB PO SCH (09:00)
[2017-12-25] MEDS ORDERED: POTASSIUM CHLORIDE ER 10 MEQ TAB.ER.PRT PO SCH (09:00)
[2017-12-25] MEDS ORDERED: ASCORBIC ACID 500 MG TAB PO SCH (09:00)
[2017-12-25] MEDS ORDERED: NON-FORMULARY DRUG (Mirabegron [Myrbetriq] 50 MG) PO SCH (09:00)
[2017-12-25] MEDS ORDERED: LOSARTAN 25 MG TAB PO SCH (09:00)
[2017-12-25] MEDS ORDERED: LORATADINE 10 MG TAB PO SCH (09:00)
[2017-12-25] MEDS ORDERED: CHOLECALCIFEROL 1,000 UNIT TAB PO SCH (09:00)
[2017-12-25] MEDS ORDERED: LACTOBACILLUS ACIDOPH & BULGAR 1 EACH PACKET PO SCH (09:00)
[2017-12-25] MEDS ORDERED: FAMOTIDINE 20 MG TAB PO SCH (09:00)
--- NOTE | 2017-12-25 11:20 | P.PN ---
Subjective Progress Note Date: 12/25/17 Principal diagnosis: Status post open left quadriceps tendon repair Patient seen resting a hospital bed, she appears comfortable. She's feeling better than yesterday. Her pain is well-controlled. She denies any headaches, lightheadedness, chest pain or shortness of breath. Objective - Vital Signs Vital signs: Vital Signs Temp 98.2 F 12/25/17 08:38 Pulse 92 12/25/17 08:38 Resp 18 12/25/17 08:38 BP 118/68 12/25/17 08:38 Pulse Ox 93 L 12/25/17 08:38 Intake & Output 12/24/17 12/25/17 12/25/17 18:59 06:59 18:59 Intake Total 450 Output Total 200 Balance -200 450 Weight 96.615 kg Intake: Intake, IV Titration 450 Amount Lactated Ringers 1,000 ml 450 @ 50 mls/hr IV .Q20H [facility] Rx#:[id number] Output: Urine 200 Other: Voiding Method Bedside Commode Bedpan # Voids 1 1 - Exam Left lower extremity: Cast is in good position and condition, incision is clean, dry and intact. Roberta are all in good position. She is able to wiggle her toes. Her sensory exam to light touch both distal and proximal to this cast are intact. Her cap refills less than 3 seconds. - Labs CBC & Chem 7: 12/25/17 06:36 12/25/17 06:36 Labs: Abnormal Lab Results - Last 24 Hours (Table) 12/24/17 12/25/17 Range/Units 19:48 06:36 Carbon Dioxide 31 H (22-30) mmol/L POC Glucose (mg/dL) 103 H (75-99) mg/dL AST 12 L (14-36) U/L Total Protein 5.4 L (6.3-8.2) g/dL Albumin 3.0 L (3.5-5.0) g/dL Assessment and Plan Plan: Assessment: Postoperative day #2 status post open repair left quadriceps tendon tear Plan: Pain control, we'll discharge on oral medication GI and DVT prophylaxis, discharged on eloquence 2.5 mg Medical recommendations Nonweightbearing left lower extremity Discharge planning: Patient stable for discharge to rehab today Time with Patient: Less than 30
--- NOTE | 2017-12-25 11:27 | P.DS ---
Providers Date of admission: 12/23/17 11:46 Expected date of discharge: 12/25/17 Attending physician: Luis Fink Consults: 12/23/17 19:39 Consult Physician Routine Consulting Provider: Joe Keith Consult Reason/Comments: Medical Management Do you want consulting provider notified?: Yes Primary care physician: Susannah Holley Hospital Course: Date of admission: 12/23/2017 Date of discharge: 12/25/2017 Admission diagnosis: Status post left quadriceps tendon repair Discharge diagnosis: Same Attending physician: Dr. Fink Surgical procedures: Left quadriceps tendon repair Brief history: Patient is a 77-year-old female with a history of a previous left total knee arthroplasty. She had a fall postop, she underwent an initial left quadriceps tendon repair. She was stable for about 4 weeks, she had a twisting incident a rehab which resulted in another tear of the left quadriceps tendon. She was scheduled for surgery on 12/23/2017 for repair. Hospital course: Details of patient's surgery can be found in operative report. Patient tolerated the procedure well and was subsequently transported to orthopedic floor. Patient's orthopeidc and medical care was provided daily. Patient had daily laboratory tests performed for evaluation of overall blood counts. Patient had daily physical therapy to include strengthening range of motion as well as education with walker ambulation. Patient was treated with Lovenox for their postoperative DVT prophylaxis during their inpatient stay. Patient was noted to have a relatively uneventful postoperative course. Patient reported satisfactory pain control with oral pain medications by postoperative day 0. Patient showed satisfactory progress with physical therapy. Patient moved steadily through the program and had no difficulty meeting the goals by postoperative day 2. Given patient's otherwise satisfactory course and having met physical therapy goals, plan is to discharge patient rehab on postoperative day 2. Discharge condition/disposition: Patient will be discharged rehab in stable condition. Discharge medications: Instructions are given on resumption of patient's normal daily medications per primary care recommendation, in addition patient will be prescribed Tramadol 50mg, Eliquis 2.5mg Discharge instructions: 1. Keep cast clean and dry 2. Nonweightbearing left lower extremity 3. Ice and elevate when necessary. Do not exceed 20 minutes per hour with ice pack. 4. Utilize compression sleeve until seen at first follow up appointment. 5. Visiting nursing care. 6. Home physical therapy 7. Pain meds and anticoagulants per prescription. 8. Pain medication has potential to cause constipation. Increase oral fluid and fiber intake. Contact primary care provider if you have not had a bowel movement within 48 hours after discharge 9. No anti-inflammatory medication until discussed at first post operative visit, this including Motrin, Aleve, Mobic, Diclofenac 10. Follow up in office at 2 weeks postop with Juan R Enriquez PA-C 11. Follow up with your primary care doctor 7-10 days after discharge. 12. Contact [facility] with any questions, . Procedures: Open repair left quadriceps tendon Patient Condition at Discharge: Good Plan - Discharge Summary Discharge Rx Participant: Yes New Discharge Prescriptions: New Apixaban [Eliquis] 2.5 mg PO BID #14 tab traMADol HCl [Ultram] 50 mg PO Q6H PRN #28 tab PRN Reason: Pain Discontinued traMADol HCL [Ultram] 50 mg PO Q4HR PRN PRN Reason: Pain No Action Multivitamins, Thera [Multivitamin (formulary)] 1 tab PO DAILY Ascorbic Acid [Vitamin C] 1,000 mg PO DAILY Cholecalciferol [Vitamin D3] 5,000 unit PO DAILY L.acidoph,Paracasei, B.lactis [Probiotic] 1 cap PO DAILY Fexofenadine HCl [Sindy Allergy] 180 mg PO DAILY Mirabegron [Myrbetriq] 50 mg PO DAILY Calcium Carbonate [Calcium] 600 mg PO DAILY Albuterol Inhaler [Ventolin Hfa Inhaler] 1 - 2 puff INHALATION RT-Q6H PRN #1 inhaler PRN Reason: Shortness Of Breath Docusate [Colace] 100 mg PO BID #30 capsule Furosemide [Lasix] 20 mg PO DAILY Acetaminophen Tab [Tylenol Tab] 650 mg PO Q6H PRN PRN Reason: Pain Losartan [Cozaar] 25 mg PO DAILY MDD hold for systolic < 100 Potassium Chloride [K-Tab ER] 10 meq PO DAILY Aspirin [Adult Low Dose Aspirin EC] 81 mg PO DAILY Discharge Medication List Ascorbic Acid [Vitamin C] 1,000 mg PO DAILY 01/04/15 [History] Multivitamins, Thera [Multivitamin (formulary)] 1 tab PO DAILY 01/04/15 [History ] Cholecalciferol [Vitamin D3] 5,000 unit PO DAILY 01/09/16 [History] Fexofenadine HCl [Sindy Allergy] 180 mg PO DAILY 02/11/17 [History] L.acidoph,Paracasei, B.lactis [Probiotic] 1 cap PO DAILY 02/11/17 [History] Mirabegron [Myrbetriq] 50 mg PO DAILY 02/11/17 [History] Calcium Carbonate [Calcium] 600 mg PO DAILY 10/28/17 [History] Albuterol Inhaler [Ventolin Hfa Inhaler] 1 - 2 puff INHALATION RT-Q6H PRN #1 inhaler 11/22/17 [Rx] Docusate [Colace] 100 mg PO BID #30 capsule 11/22/17 [Rx] Acetaminophen Tab [Tylenol Tab] 650 mg PO Q6H PRN 12/20/17 [History] Aspirin [Adult Low Dose Aspirin EC] 81 mg PO DAILY 12/20/17 [History] Furosemide [Lasix] 20 mg PO DAILY 12/20/17 [History] Losartan [Cozaar] 25 mg PO DAILY MDD hold for systolic < 100 12/20/17 [History] Potassium Chloride [K-Tab ER] 10 meq PO DAILY 12/20/17 [History] Apixaban [Eliquis] 2.5 mg PO BID #14 tab 12/25/17 [Rx] traMADol HCl [Ultram] 50 mg PO Q6H PRN #28 tab 12/25/17 [Rx] Follow up Appointment(s)/Referral(s): Linus Enriquez PAC [PHYSICIAN EXPERIENCED TRUCK DRIVER] - 3 Weeks Activity/Diet/Wound Care/Special Instructions[facility]: 1. Keep cast clean and dry 2. Nonweightbearing left lower extremity 3. Okay to remove basia 2 weeks postop, date of surgery was 12/23/2017. 4. Pain meds and anticoagulants per prescription. 5. Pain medication has potential to cause constipation. Increase oral fluid and fiber intake. Contact primary care provider if you have not had a bowel movement within 48 hours after discharge. 6. No anti-inflammatory medication until discussed at first post operative visit, this including Motrin, Aleve, Mobic, Diclofenac 7. Follow up in office at 3 weeks postop with Juan R Enriquez PA-C 8. Follow up with your primary care doctor 7-10 days after discharge. 9. Contact [facility] with any questions, . Discharge Disposition: TRANSFER TO SNF/ECF
[2017-12-25] MEDS ORDERED: MULTIVITAMINS, THERA 1 EACH TAB PO SCH (12:00)
[2017-12-25] MEDS: ACETAMINOPHEN TAB 325 MG TAB PO PRN (13:11)
--- NOTE | 2017-12-25 14:08 | P.PN ---
Subjective Progress Note Date: 12/25/17 This is 77-year-old patient of Dr. calzada. Patient recently underwent went of left total knee arthroplasty on 11/04/2017. Patient did sustain a quadricep tendon rupture and underwent repair on 11/18/2017. She was seen in the office last week and was noted to have a recurrent tear of the tendon with possible involvement of medial retinaculum. Patient is postop day 1 status post left knee quadricep tendon rupture repair and repair of the left knee medial retinacular tear with Dr. Fink. She has known past medical history of hypertension, right total knee arthroplasty, left total knee arthroplasty, left quadricep tendon repair, left shoulder arthroplasty and depression. At this time patient is resting comfortably in bed. Patient did state she had some nausea and vomitting post pain medication administration. She currently tolerating tramadol per surgical services. Patient denies chest pain or shortness of breath. Denies any urinary frequency or burning. On 12/25/2017 and being discharge per protocol surgical team. [facility] [place]. Anticoagulation and pain meds per orthopedic team. Patient is currently resting comfortably in bed. States she has been up walking to the bathroom. Patient denies chest pain or shortness breath. Denies nausea vomiting or diarrhea. Denies any urinary complaints Objective - Vital Signs Vital signs: Vital Signs Temp 98.2 F 12/25/17 08:38 Pulse 92 12/25/17 08:38 Resp 18 12/25/17 08:38 BP 118/68 12/25/17 08:38 Pulse Ox 93 L 12/25/17 08:38 Intake & Output 12/24/17 12/25/17 12/25/17 18:59 06:59 18:59 Intake Total 450 Output Total 200 Balance -200 450 Weight 96.615 kg Intake: Intake, IV Titration 450 Amount Lactated Ringers 1,000 ml 450 @ 50 mls/hr IV .Q20H ION Rx#:[id number] Output: Urine 200 Other: Voiding Method Bedside Commode Bedpan # Voids 1 1 - Exam Head normocephalic Neck supple Lungs clear to auscultation bilaterally no wheezing or crackles Heart regular rate and rhythm S1-S2, no rub or gallop Abdomen is soft nontender nondistended positive bowel sounds no hepatosplenomegaly Extremities no edema. Left leg dressing clean dry and intact Neuro alert and orientated to 3 - Labs CBC & Chem 7: 12/25/17 06:36 12/25/17 06:36 Labs: Abnormal Lab Results - Last 24 Hours (Table) 12/24/17 12/25/17 Range/Units 19:48 06:36 Carbon Dioxide 31 H (22-30) mmol/L POC Glucose (mg/dL) 103 H (75-99) mg/dL AST 12 L (14-36) U/L Total Protein 5.4 L (6.3-8.2) g/dL Albumin 3.0 L (3.5-5.0) g/dL Assessment and Plan Assessment: 1. Status post left quadrant tendon repair with Dr. Fink. Patient is postop day 1. patient recently underwent total left knee arthroplasty on November 04. Patient also had previous tendon repair on 11/23. Patient currently on Xarelto 10 mg by mouth daily per surgical team. Pain management per surgical team. Cleared for discharge from orthopedic surgical team. Patient will be discharged home on eliquis and pain meds per orthopedic team. 2. History of hypertension. Home Lasix and Cozaar medications have been reordered 3. History of osteoarthritis Thank you for this consultation we'll continue to follow patient throughout stay. Patient to be discharged back to rehab facility in [facility]. I performed an examination of the patient and discussed their management with the Nurse Practitioner. I have reviewed the Nurse Practitioner's notes and agree with the documented findings and plan of care
== END 2017-12-25 15:19 | DRG 502 ==
LOC: 2ORMAIN 11:46 → 3SUR 12:02
PROVIDERS: ADMIT Orthopaedic Surgery; ATTEND Orthopaedic Surgery
PROC: 0LQR0ZZ Repair Left Knee Tendon, Open Approach (ICD-10-PCS; principal; 2017-12-23 18:00)
DX: S76.112A Strain of left quadriceps muscle, fascia and tendon, initial encounter (principal); H91.90 Unspecified hearing loss, unspecified ear; I10 Essential (primary) hypertension; M41.9 Scoliosis, unspecified; F32.9 Major depressive disorder, single episode, unspecified; G43.909 Migraine, unspecified, not intractable, without status migrainosus; M19.90 Unspecified osteoarthritis, unspecified site; R11.2 Nausea with vomiting, unspecified; Z79.899 Other long term (current) drug therapy; Z79.82 Long term (current) use of aspirin; Z96.653 Presence of artificial knee joint, bilateral; Z96.612 Presence of left artificial shoulder joint; Z87.891 Personal history of nicotine dependence; Z83.3 Family history of diabetes mellitus; Z80.7 Family history of other malignant neoplasms of lymphoid, hematopoietic and related tissues; Z82.0 Family history of epilepsy and other diseases of the nervous system; X58.XXXA Exposure to other specified factors, initial encounter; Y92.9 Unspecified place or not applicable
CPT/HCPCS: 80053; 85025

== ENCOUNTER 2018-08-05 12:52 | Observation (INO) | payer MEDICARE, BC ==
[2018-08-05] MEDS ORDERED: DIPH,PERTUS(ACELL)TETVAC-LF 0.5 ML VIAL IM ONE (13:27)
--- NOTE | 2018-08-05 13:32 | ED ---
General Adult HPI - General Chief complaint: Syncope Stated complaint: Syncope Time Seen by Provider: 08/05/18 13:12 Source: patient, family, EMS, RN notes reviewed Mode of arrival: EMS Limitations: no limitations - History of Present Illness Initial comments: Patient is a pleasant 78-year-old female presenting to the emergency Department with complaints of syncopal episode. Episode occurred just prior to arrival. Patient got her nails done and then was getting her car when she passed out. Patient does not recall passing out or falling. Patient states she did strike the back of her head and has some discomfort in that region. No other area of injury or concern. No neck or back pain. No chest pain or dyspnea. No abdominal pain. No confusion or weakness. No history of similar symptoms previously. Last tetanus immunization is unclear. - Related Data Home Medications Medication Instructions Recorded Confirmed Ascorbic Acid [Vitamin C] 1,000 mg PO DAILY 01/04/15 08/05/18 Multivitamins, Thera [Multivitamin 1 tab PO DAILY 01/04/15 08/05/18 (formulary)] Cholecalciferol [Vitamin D3] 5,000 unit PO DAILY 01/09/16 08/05/18 Mirabegron [Myrbetriq] 50 mg PO DAILY 02/11/17 08/05/18 Aspirin [Adult Low Dose Aspirin EC] 81 mg PO DAILY 03/28/18 08/05/18 Celecoxib [CeleBREX] 200 mg PO BID 03/28/18 08/05/18 Losartan/Hydrochlorothiazide 1 tab PO QAM 03/28/18 08/05/18 [Hyzaar 100-25 Tablet] Calcium Carbonate/Vitamin D3 1 cap PO DAILY 08/05/18 08/05/18 [Calcium 600-Vit D3 500 Softgel] Allergies Allergy/AdvReac Type Severity Reaction Status Date / Time Sulfa (Sulfonamide AdvReac migraine Verified 08/05/18 13:41 Antibiotics) Review of Systems ROS Statement: Those systems with pertinent positive or pertinent negative responses have been documented in the HPI. ROS Other: All systems not noted in ROS Statement are negative. Constitutional: Denies: fever Eyes: Denies: eye pain ENT: Denies: ear pain Respiratory: Denies: dyspnea Cardiovascular: Denies: chest pain Endocrine: Denies: fatigue Gastrointestinal: Denies: abdominal pain Genitourinary: Denies: dysuria Musculoskeletal: Denies: back pain Skin: Denies: rash Neurological: Reports: headache (CT her scalp where she struck her head). De nies: weakness, numbness, paresthesias, confusion Past Medical History Past Medical History: CVA/TIA, Hearing Disorder / Deafness, Hypertension, Osteoarthritis (OA) Additional Past Medical History / Comment(s): HX OF HOLE IN HEART WITH SURGICAL REPAIR., MIGRAINES, SCOLIOSIS, IMMOBILIZER LEFT KNEE., hx TIA-no effects, constipation, History of Any Multi-Drug Resistant Organisms: None Reported Past Surgical History: Section, Cholecystectomy, Hysterectomy, Joint Replacement, Orthopedic Surgery Additional Past Surgical History / Comment(s): PVO CLOSURE (2006)., LEFT SHOULDER REPLACEMENT, RIGHT KNEE replacement, RT FOOT BUNION , LASIK EYE SURGERY, TOTAL LEFT KNEE (11/04/17), LEFT KNEE TENDON REPAIR (11/18/17 and 12/23/17). Past Anesthesia/Blood Transfusion Reactions: Family History of Problems w/ Anesthesia, Postoperative Nausea & Vomiting (PONV) Additional Past Anesthesia/Blood Transfusion Reaction / Comment(s): son and daughter severe PONV Past Psychological History: No Psychological Hx Reported Smoking Status: Former smoker Past Alcohol Use History: Occasional Additional Past Alcohol Use History / Comment(s): started smoking as teen, quit smoking 50 yrs ago Past Drug Use History: None Reported - Past Family History Mother Family Medical History: Dementia, Diabetes Mellitus Father Family Medical History: Cancer Additional Family Medical History / Comment(s): NON-HODGKINS LYMPHOMA General Exam Limitations: no limitations General appearance: alert, in no apparent distress Head exam: Present: other (Right posterior scalp hematoma with some blood.) Eye exam: Present: normal appearance, PERRL, EOMI. Absent: nystagmus ENT exam: Present: normal oropharynx Neck exam: Present: normal inspection, full ROM. Absent: tenderness Respiratory exam: Present: normal lung sounds bilaterally Cardiovascular Exam: Present: regular rate, normal rhythm Expanded Peripheral pulses: 2+: Radial (R), Radial (L), Posterior Tibialis (R), Posterior Tibialis (L) GI/Abdominal exam: Present: soft. Absent: tenderness Extremities exam: Present: normal inspection, full ROM. Absent: tenderness Neurological exam: Present: alert, oriented X3, CN II-XII intact. Absent: motor sensory deficit Expanded Neurological exam: Present: protecting the airway Patient oriented to: Present: person, place, time Cranial nerves: EOM's Intact: Normal, Facial Sensation: Normal Cerebellar function: Finger to Nose: Normal Sensory exam: Upper Extremity Light Touch: Normal, Lower Extremity Light Touch: Normal Motor strength exam: RUE: 5, LUE: 5, RLE: 5, LLE: 5 Eye Response: (4) open spontaneously Motor Response: (6) obeys commands Verbal Response: (5) oriented Psychiatric exam: Present: normal affect, normal mood Skin exam: Present: other (Scalp hematoma) Course Vital Signs 08/05/18 08/05/18 13:07 14:59 Temperature 97.3 F L Pulse Rate 80 84 Respiratory 16 16 Rate Blood Pressure 136/78 141/74 O2 Sat by Pulse 94 L 94 L Oximetry - Reevaluation(s) Reevaluation #1: 08/05/18 15:31 Note: Patient is being admitted for syncopal workup and not trauma. There is no concern regarding scalp laceration injury further than care already provided. EKG Findings - EKG Comments: EKG Findings:: Normal sinus rhythm 79. MI 160. QRS 142. QT 448. QTC 513. Right axis. Right bundle branch block. Left posterior fascicular block. No acute ST change. Procedures - Laceration Laceration #1 Consent Obtained: verbal consent Indication: laceration Site: scalp Size (cm): 1 Depth: simple, single layer Anesthesia Technique: local infiltration Pre-repair: wound explored, irrigated extensively Type of Sutures: other (Closed with 4 basia) Number of Sutures: 4 Patient Tolerated Procedure: well, no complications Additional Comments: Patient has a small posterior scalp laceration, less than 1 cm. There is a small arteriole bleed. Bleeding controlled with 4 basia. Medical Decision Making - Medical Decision Making Patient reevaluated and resting comfortably in bed. Patient and family updated on results and plan. Case was discussed in detail with Dr. Keith, who will admit covering for Dr. hdez. Patient did have surgery proximal he 4 months ago. Patient has no symptoms of PE however patient didn't pass out and therefore d-dimer will be added. - Lab Data Result diagrams: 08/05/18 13:31 08/05/18 13:31 Lab Results 03/08/05/18 08/05/18 Range/Units 13:31 13:31 13:31 WBC 7.6 (3.8-10.6) k/uL RBC 4.74 (3.80-5.40) m/uL Hgb 14.2 (11.4-16.0) gm/dL Hct 44.1 (34.0-46.0) % MCV 93.0 (80.0-100.0) fL MCH 29.9 (25.0-35.0) pg MCHC 32.1 (31.0-37.0) g/dL RDW 14.1 (11.5-15.5) % Plt Count 279 (150-450) k/uL Neutrophils % 73 % Lymphocytes % 15 % Monocytes % 6 % Eosinophils % 4 % Basophils % 0 % Neutrophils # 5.5 (1.3-7.7) k/uL Lymphocytes # 1.1 (1.0-4.8) k/uL Monocytes # 0.5 (0-1.0) k/uL Eosinophils # 0.3 (0-0.7) k/uL Basophils # 0.0 (0-0.2) k/uL PT 10.3 (9.0-12.0) sec INR 1.0 (<1.2) APTT 25.9 (22.0-30.0) sec Sodium 141 (137-145) mmol/L Potassium 4.0 (3.5-5.1) mmol/L Chloride 103 (98-107) mmol/L Carbon Dioxide 30 (22-30) mmol/L Anion Gap 8 mmol/L BUN 24 H (7-17) mg/dL Creatinine 0.65 (0.52-1.04) mg/dL Est GFR (CKD-EPI)AfAm >90 (>60 ml/min/1.73 sqM) Est GFR (CKD-EPI)NonAf 87 (>60 ml/min/1.73 sqM) Glucose 92 (74-99) mg/dL Calcium 9.9 (8.4-10.2) mg/dL Magnesium 1.9 (1.6-2.3) mg/dL Total Bilirubin 0.6 (0.2-1.3) mg/dL AST 16 (14-36) U/L ALT 23 (9-52) U/L Alkaline Phosphatase 61 (38-126) U/L Troponin I (0.000-0.034) ng/mL Total Protein 6.9 (6.3-8.2) g/dL Albumin 3.9 (3.5-5.0) g/dL Urine Color Urine Appearance (Clear) Urine pH (5.0-8.0) Ur Specific Carmine (1.001-1.035) Urine Protein (Negative) Urine Glucose (UA) (Negative) Urine Ketones (Negative) Urine Blood (Negative) Urine Nitrite (Negative) Urine Bilirubin (Negative) Urine Urobilinogen (<2.0) mg/dL Ur Leukocyte Esterase (Negative) 08/05/18 08/05/18 Range/Units 13:31 14:10 WBC (3.8-10.6) k/uL RBC (3.80-5.40) m/uL Hgb (11.4-16.0) gm/dL Hct (34.0-46.0) % MCV (80.0-100.0) fL MCH (25.0-35.0) pg MCHC (31.0-37.0) g/dL RDW (11.5-15.5) % Plt Count (150-450) k/uL Neutrophils % % Lymphocytes % % Monocytes % % Eosinophils % % Basophils % % Neutrophils # (1.3-7.7) k/uL Lymphocytes # (1.0-4.8) k/uL Monocytes # (0-1.0) k/uL Eosinophils # (0-0.7) k/uL Basophils # (0-0.2) k/uL PT (9.0-12.0) sec INR (<1.2) APTT (22.0-30.0) sec Sodium (137-145) mmol/L Potassium (3.5-5.1) mmol/L Chloride (98-107) mmol/L Carbon Dioxide (22-30) mmol/L Anion Gap mmol/L BUN (7-17) mg/dL Creatinine (0.52-1.04) mg/dL Est GFR (CKD-EPI)AfAm (>60 ml/min/1.73 sqM) Est GFR (CKD-EPI)NonAf (>60 ml/min/1.73 sqM) Glucose (74-99) mg/dL Calcium (8.4-10.2) mg/dL Magnesium (1.6-2.3) mg/dL Total Bilirubin (0.2-1.3) mg/dL AST (14-36) U/L ALT (9-52) U/L Alkaline Phosphatase (38-126) U/L Troponin I <0.012 (0.000-0.034) ng/mL Total Protein (6.3-8.2) g/dL Albumin (3.5-5.0) g/dL Urine Color Yellow Urine Appearance Clear (Clear) Urine pH 6.0 (5.0-8.0) Ur Specific Carmine 1.024 (1.001-1.035) Urine Protein Negative (Negative) Urine Glucose (UA) Negative (Negative) Urine Ketones Negative (Negative) Urine Blood Negative (Negative) Urine Nitrite Negative (Negative) Urine Bilirubin Negative (Negative) Urine Urobilinogen <2.0 (<2.0) mg/dL Ur Leukocyte Esterase Negative (Negative) - Radiology Data Radiology results: report reviewed (Computed tomography scan of the brain reveals atrophy and chronic small vessel changes without acute process.), image reviewed (Chest x-ray shows chronic findings without acute process.) Disposition Clinical Impression: Syncope, Laceration of scalp Disposition: ADMITTED IP TO THIS HOSP Is patient prescribed a controlled substance at d/c from ED?: No Referrals: Susannah Holley MD [Primary Care Provider] - 1-2 days Decision Time: 15:38
[2018-08-05 13:43] LABS: Basophils % (A) 0 %; Eosinophils # (A) 0.3 k/uL (0-0.7); Eosinophils % (A) 4 %; HCT 44.1 % (34.0-46.0); HGB 14.2 gm/dL (11.4-16.0); Lymphocytes # (A) 1.1 k/uL (1.0-4.8); Lymphocytes % (A) 15 %; MCH 29.9 pg (25.0-35.0); MCHC 32.1 g/dL (31.0-37.0); Mean Platelet Volume 7.2; Monocytes # (A) 0.5 k/uL (0-1.0); Monocytes % (A) 6 %; Neutrophils # (A) 5.5 k/uL (1.3-7.7); Neutrophils % (A) 73 %; Platelet Count 279 k/uL (150-450); RBC 4.74 m/uL (3.80-5.40); RDW 14.1 % (11.5-15.5); WBC 7.6 k/uL (3.8-10.6)
--- NOTE | 2018-08-05 13:49 | CT ---
EXAMINATION TYPE: CT brain wo con DATE OF EXAM: 08/05/2018 COMPARISON: 01/08/2016 HISTORY: Syncope, open wound to back of head CT DLP: 1048.[address] of the brain was performed. The ventricles, basal cisterns and sulci overlying the cerebral convexities demonstrate mild enlargem ent. There is no evidence for intracranial hemorrhage or sulcal effacement. There is decreased attenuation about the periventricular white matter and deep white matter of both c erebral hemispheres, compatible with chronic small vessel ischemia. Differential diagnosis does inclu de demyelination. No mass effects are seen.No midline shift. Osseous calvarium is intact. Large right-sided occipital scalp hematoma. If symptoms persist consider MRI. IMPRESSION: 1. Age related atrophic and chronic small vessel ischemic change without acute intracranial process s een at this time.
--- NOTE | 2018-08-05 13:54 | XR ---
EXAMINATION TYPE: XR chest 2V DATE OF EXAM: 08/05/2018 COMPARISON: 04/01/2017 HISTORY: Syncope TECHNIQUE: Frontal and lateral views of the chest are obtained. FINDINGS: There is an S-shaped scoliotic curvature of the visualized thoracic spine shifting the med iastinum to the left as seen on the prior. Left humeral arthroplasties partially visualized. Mild deg enerative changes of the acromioclavicular joints are present. Postoperative changes are seen of the heart. Cardiomediastinal silhouette is stable and upper limits of normal. No focal consolidation, ple ural effusion or pneumothorax. Chronic pleural reaction at the left costophrenic angle is present. IMPRESSION: Chronic findings with no acute cardiopulmonary process.
[2018-08-05 13:58] LABS: Partial Thromboplastin Time 25.9 sec (22.0-30.0); Prothrombin Time 10.3 sec (9.0-12.0)
[2018-08-05 14:00] LABS: ALT 23 U/L (9-52); AST 16 U/L (14-36); Albumin 3.9 g/dL (3.5-5.0); Alkaline Phosphatase 61 U/L (38-126); Anion Gap 8 mmol/L; Blood Urea Nitrogen 24 mg/dL (7-17); Calcium 9.9 mg/dL (8.4-10.2); Carbon Dioxide 30 mmol/L (22-30); Chloride 103 mmol/L (98-107); Glucose 92 mg/dL (74-99); Magnesium 1.9 mg/dL (1.6-2.3); Sodium 141 mmol/L (137-145); Total Bilirubin 0.6 mg/dL (0.2-1.3); Total Protein 6.9 g/dL (6.3-8.2)
[2018-08-05 14:21] LABS: Appearance,Urine Clear (Clear); Bilirubin,Urine Negative (Negative); Blood,Urine Negative (Negative); Color,Urine Yellow; Glucose,Urine (UA) Negative (Negative); Ketones,Urine Negative (Negative); Leukocyte Esterase,Urine Negative (Negative); Nitrite,Urine Negative (Negative); Protein,Urine Negative (Negative); Specific Gravity,Urine 1.024 (1.001-1.035); Urobilinogen,Urine <2.0 mg/dL (<2.0)
--- NOTE | 2018-08-05 16:20 | P.HPIM ---
History of Present Illness H&P Date: 08/05/18 This is a 78-year-old female patient of Dr. Holley. Patient presented to ER with complaints of syncopal episode. Patient reports that she just had her nails and was walking to her car and patient reports she does not remember but she woke up on the ground. Patient denies any symptoms prior to event including dizziness lightheadedness chest pain or shortness of breath. Patient reports that she has been feeling well these past few days denies any illness chest pain or shortness breath. Patient denies any history of heart attacks or cardiac conditions. Patient does have a past medical history of CVA TIA, urinary, hypertension, osteoarthritis, cholecystectomy, left total knee repair in which she had to undergo the 2 tendon repairs in November and December of 2017. Head CT completed in ER showing age-related atrophic and chronic small vessel ischemic changes without acute intracranial process is seen at this time. Chest x-ray completed in ER showing chronic findings with no acute cardiopulmonary process. EKG completed in ER showing normal sinus rhythm, right bundle branch block, left posterior fascicular block. Bifascicular block. She did have 4 basia to right scalp laceration. At this time cardiology services have been consulted. 2-D echo and carotid Doppler ordered. Patient is currently resting comfortably in bed. Patient denies chest pain or shortness breath. Patient denies nausea vomiting or diarrhea. Patient denies any urinary burning or frequency Review of Systems Please refer to HPI otherwise unremarkable Past Medical History Past Medical History: CVA/TIA, Hearing Disorder / Deafness, Hypertension, Osteoarthritis (OA) Additional Past Medical History / Comment(s): HX OF HOLE IN HEART WITH SURGICAL REPAIR., MIGRAINES, SCOLIOSIS, IMMOBILIZER LEFT KNEE., hx TIA-no effects, constipation, History of Any Multi-Drug Resistant Organisms: None Reported Past Surgical History: Section, Cholecystectomy, Hysterectomy, Joint Replacement, Orthopedic Surgery Additional Past Surgical History / Comment(s): PVO CLOSURE (2006)., LEFT SHOULDER REPLACEMENT, RIGHT KNEE replacement, RT FOOT BUNION , LASIK EYE SURGERY, TOTAL LEFT KNEE (11/04/17), LEFT KNEE TENDON REPAIR (11/18/17 and 12/23/17). Past Anesthesia/Blood Transfusion Reactions: Family History of Problems w/ An esthesia, Postoperative Nausea & Vomiting (PONV) Additional Past Anesthesia/Blood Transfusion Reaction / Comment(s): son and daughter severe PONV Past Psychological History: No Psychological Hx Reported Smoking Status: Former smoker Past Alcohol Use History: Occasional Additional Past Alcohol Use History / Comment(s): started smoking as teen, quit smoking 50 yrs ago Past Drug Use History: None Reported - Past Family History Mother Family Medical History: Dementia, Diabetes Mellitus Father Family Medical History: Cancer Additional Family Medical History / Comment(s): NON-HODGKINS LYMPHOMA Medications and Allergies Home Medications Medication Instructions Recorded Confirmed Type Ascorbic Acid [Vitamin C] 1,000 mg PO DAILY 01/04/15 08/05/18 History Multivitamins, Thera [Multivitamin 1 tab PO DAILY 01/04/15 08/05/18 History (formulary)] Cholecalciferol [Vitamin D3] 5,000 unit PO DAILY 01/09/16 08/05/18 History Mirabegron [Myrbetriq] 50 mg PO DAILY 02/11/17 08/05/18 History Aspirin [Adult Low Dose Aspirin EC] 81 mg PO DAILY 03/28/18 08/05/18 History Celecoxib [CeleBREX] 200 mg PO BID 03/28/18 08/05/18 History Losartan/Hydrochlorothiazide 1 tab PO QAM 03/28/18 08/05/18 History [Hyzaar 100-25 Tablet] Calcium Carbonate/Vitamin D3 1 cap PO DAILY 08/05/18 08/05/18 History [Calcium 600-Vit D3 500 Softgel] Allergies Allergy/AdvReac Type Severity Reaction Status Date / Time Sulfa (Sulfonamide AdvReac migraine Verified 08/05/18 13:41 Antibiotics) Physical Exam Vitals: Vital Signs Temp Pulse Resp BP Pulse Ox 08/05/18 14:59 84 16 141/74 94 L 08/05/18 13:07 97.3 F L 80 16 136/78 94 L Intake and Output 08/05/18 08/05/18 08/05/18 06:59 14:59 22:59 Other: Weight 92.986 kg Head normocephalic. Right head dressing clean dry and intact Neck supple Lungs clear to auscultation bilaterally no wheezing or crackles Heart regular rate and rhythm S1-S2, no rub or gallop Abdomen is soft nontender nondistended positive bowel sounds no hepatosplenomegaly Extremities no edema Neuro alert and orientated to 3 Results CBC & Chem 7: 08/05/18 13:31 08/05/18 13:31 Labs: Abnormal Lab Results - Last 24 Hours (Table) 08/05/18 Range/Units 13:31 BUN 24 H (7-17) mg/dL Assessment and Plan Assessment: 1. Syncopal episode. Initial troponin negative. Head CT completed showing age -related atrophic and chronic small vessel ischemic change without acute intracranial process is seen at this time. Chest x-ray completed showing chronic findings no acute cardiopulmonary process. EKG completed showing normal sinus rhythm right bundle branch block. Left posterior vascular black B ifascicular block. Cardiology services have been consulted. 2-D echo and carotid Doppler has been ordered. 2. History of left total knee arthroplasty with tendon repair 2 in March 2018 3. History of essential hypertension 4. History of osteoarthritis 5. History of migraines 6. History of cholecystectomy DVT prophylaxis Lovenox. GI prophylaxis Pepcid Cardiology services have been consulted Troponins ordered 2-D echo carotid Doppler ordered D-dimer ordered Time with Patient: Greater than 30 (Greater than 60% of the total time spent in counseling and coordination of care. I performed an examination of the patient and discussed their management with the Nurse Practitioner. I have reviewed the Nurse Practitioner's notes and agree with the documented findings and plan of care)
--- NOTE | 2018-08-05 18:28 | US ---
EXAMINATION TYPE: US carotid duplex BILAT DATE OF EXAM: 08/05/2018 COMPARISON: NONE CLINICAL HISTORY: syncope. Syncope. EXAM MEASUREMENTS: RIGHT: Peak Systolic Velocity (PSV) cm/sec ----- Right CCA: 83.8 ----- Right ICA: 109.7 ----- Right ECA: 59.6 ICA/CCA ratio: 1.3 RIGHT: End Diastole cm/sec ----- Right CCA: 22.5 ----- Right ICA: 40.2 ----- Right ECA: 0 LEFT: Peak Systolic Velocity (PSV) cm/sec ----- Left CCA: 85.4 ----- Left ICA: 88.7 ----- Left ECA: 59.6 ICA/CCA ratio: 1.0 LEFT: End Diastole cm/sec ----- Left CCA: 22.5 ----- Left ICA: 33.8 ----- Left ECA: 7.9 VERTEBRALS (direction of flow): Right Vertebral: Antegrade Left Vertebral: Antegrade Rhythm: Normal Bilateral vessels dive deep. No significant stenosis seen IMPRESSION: There is antegrade flow in the vertebral arteries. The images of measurements suggest le ss than 25% stenosis in both internal carotid arteries. Criteria for Assigning % of Stenosis / Diameter reduction (Estimation based on the indirect measurements of the internal carotid artery velocities (ICA PSV). 1. Normal (no stenosis)=ICA PSV < 125 cm/s: ratio < 2.0: ICA EDV<40 cm/s. 2. Less than 50% stenosis=ICA PSV < 125 cm/s: ratio < 2.0: ICA EDV<40 cm/s. 3. 50 to 69% stenosis=ICA PSV of 125 to 230 cm/s: ration 2.0 ? 4.0: ICA EDV 40-100 cm/s. 4. Greater than 70% stenosis to near occlusion= ICA PSV > 230 cm/s: ratio > 4.0: ICA EDV > 100 cm/s. 5. Near occlusion= ICA PSV velocities may be low or undetectable: variable ratio and ICA EDV. 6. Total occlusion=unable to detect flow.
[2018-08-05] MEDS: ACETAMINOPHEN TAB 325 MG TAB PO PRN (20:31)
[2018-08-06 06:56] LABS: Basophils % (A) 1 %; Eosinophils # (A) 0.2 k/uL (0-0.7); Eosinophils % (A) 4 %; HCT 41.7 % (34.0-46.0); HGB 13.5 gm/dL (11.4-16.0); Lymphocytes # (A) 1.3 k/uL (1.0-4.8); Lymphocytes % (A) 23 %; MCH 30.3 pg (25.0-35.0); MCHC 32.2 g/dL (31.0-37.0); Mean Platelet Volume 7.5; Monocytes # (A) 0.4 k/uL (0-1.0); Monocytes % (A) 7 %; Neutrophils # (A) 3.4 k/uL (1.3-7.7); Neutrophils % (A) 62 %; Platelet Count 240 k/uL (150-450); RBC 4.44 m/uL (3.80-5.40); RDW 14.2 % (11.5-15.5); WBC 5.5 k/uL (3.8-10.6)
[2018-08-06 07:16] LABS: ALT 19 U/L (9-52); AST 15 U/L (14-36); Albumin 3.7 g/dL (3.5-5.0); Alkaline Phosphatase 52 U/L (38-126); Anion Gap 7 mmol/L; Blood Urea Nitrogen 20 mg/dL (7-17); Calcium 9.8 mg/dL (8.4-10.2); Carbon Dioxide 28 mmol/L (22-30); Chloride 104 mmol/L (98-107); Cholesterol 159 mg/dL (<200); Glucose 103 mg/dL (74-99); HDL Cholesterol 53 mg/dL (40-60); LDL Cholesterol,Calculated 81 mg/dL (0-99); Potassium 3.9 mmol/L (3.5-5.1); Sodium 139 mmol/L (137-145); Total Bilirubin 0.7 mg/dL (0.2-1.3); Total Protein 6.5 g/dL (6.3-8.2); Triglycerides 124 mg/dL (<150)
[2018-08-06] MEDS: CHOLECALCIFEROL 1,000 UNIT TAB PO SCH (07:58)
[2018-08-06] MEDS: ASCORBIC ACID 500 MG TAB PO SCH (07:58)
[2018-08-06] MEDS: CALCIUM CARB-VIT D 500MG-200UN 1 EACH TAB PO SCH (07:59)
[2018-08-06] MEDS: ASPIRIN 81 MG PO SCH (07:59)
[2018-08-06] MEDS: MULTIVITAMINS, THERA 1 EACH TAB PO SCH (07:59)
[2018-08-06] MEDS: FAMOTIDINE 20 MG TAB PO SCH (08:00)
[2018-08-06] MEDS: ENOXAPARIN 40 MG/0.4 ML SYRINGE SQ SCH (08:00)
[2018-08-06] MEDS: ACETAMINOPHEN TAB 325 MG TAB PO PRN ×2 (08:01→19:48)
--- NOTE | 2018-08-06 08:27 | P.CRDCN ---
History of Present Illness Consult date: 08/06/18 Requesting physician: Joe Keith Consult reason: sycope Chief complaint: Syncope History of present illness: This is a pleasant 78 stroke female with known history of hypertension, nondiabetic, no hyperlipidemia, nonsmoker, who has history of knee surgery in March of last year, this was her for surgery since October of that [facility]. She has been quite sedentary until about a week ago when she started to ambulate a little bit more with her cane. Patient did have a hos pitalization in December 2015 she had an echo performed at that time which revealed a normal left ventricular systolic function, it is also noted that the patient had a myocardial stress test performed which revealed pharmacologically induced left ventricular ischemia. She went to a nail appointment yesterday, felt well, walked out to her car, and the next thing she recalled was waking up after having passed out and fallen down. She did hit her head requiring multiple basia. She denies any symptoms prior to passing out, she had no dizziness or lightheadedness, no palpitations or chest discomfort. She was alert and oriented 3 upon wakening and she did not lose bowel or bladder function. CAT scan of the brain performed on arrival showed age-related atrophic and chronic small vessel ischemic change without any acute intracranial process. Chest x-ray showed chronic findings with no acute cardiopulmonary process. EKG shows a normal sinus rhythm with a right bundle branch block patte rn. Carotid duplex study was performed which was negative for any significant obstruction. Blood pressure 136/78 on arrival with a heart rate in the 80s, 94% on room air. White blood cell count 5.5, hemoglobin 13.5, platelet count 240. D-dimer 3.5. Sodium 139, potassium 3.9, BUN 20 and creatinine 0.6. Magnesium 1.9. Troponins negative 3. At the time of my examination this morning, patient feels well, denies any dizziness or lightheadedness. In view of the fact the patient had a syncopal episode with an abnormal d-dimer we have recommended that the patient undergo a CT angiogram of the chest to rule out the possibility of pulmonary embolism. We will also monitor for any tachycardia or bradycardia arrhythmias and monitor orthostatics every shift. Past Medical History Past Medical History: CVA/TIA, Hearing Disorder / Deafness, Hypertension, Osteoarthritis (OA) Additional Past Medical History / Comment(s): HX OF HOLE IN HEART WITH SURGICAL REPAIR., MIGRAINES, SCOLIOSIS, IMMOBILIZER LEFT KNEE., hx TIA-no effects, constipation, History of Any Multi-Drug Resistant Organisms: None Reported Past Surgical History: Section, Cholecystectomy, Hysterectomy, Joint Replacement, Orthopedic Surgery Additional Past Surgical History / Comment(s): PVO CLOSURE (2006)., LEFT SHOULDER REPLACEMENT, RIGHT KNEE replacement, RT FOOT BUNION , LASIK EYE SURGERY, TOTAL LEFT KNEE (11/04/17), LEFT KNEE TENDON REPAIR (11/18/17 and 12/23/17). Past Anesthesia/Blood Transfusion Reactions: Family History of Problems w/ Anesthesia, Postoperative Nausea & Vomiting (PONV) Additional Past Anesthesia/Blood Transfusion Reaction / Comment(s): son and daughter severe PONV Past Psychological History: No Psychological Hx Reported Smoking Status: Never smoker Past Alcohol Use History: Occasional Additional Past Alcohol Use History / Comment(s): started smoking as teen, quit smoking 50 yrs ago Past Drug Use History: None Reported - Past Family History Mother Family Medical History: Dementia, Diabetes Mellitus Father Family Medical History: Cancer Additional Family Medical History / Comment(s): NON-HODGKINS LYMPHOMA Medications and Allergies Home Medications Medication Instructions Recorded Confirmed Type Ascorbic Acid [Vitamin C] 1,000 mg PO DAILY 01/04/15 08/05/18 History Multivitamins, Thera [Multivitamin 1 tab PO DAILY 01/04/15 08/05/18 History (formulary)] Cholecalciferol [Vitamin D3] 5,000 unit PO DAILY 01/09/16 08/05/18 History Mirabegron [Myrbetriq] 50 mg PO DAILY 02/11/17 08/05/18 History Aspirin [Adult Low Dose Aspirin EC] 81 mg PO DAILY 03/28/18 08/05/18 History Celecoxib [CeleBREX] 200 mg PO BID 03/28/18 08/05/18 History Losartan/Hydrochlorothiazide 1 tab PO QAM 03/28/18 08/05/18 History [Hyzaar 100-25 Tablet] Calcium Carbonate/Vitamin D3 1 cap PO DAILY 08/05/18 08/05/18 History [Calcium 600-Vit D3 500 Softgel] Allergies Allergy/AdvReac Type Severity Reaction Status Date / Time Sulfa (Sulfonamide AdvReac migraine Verified 03/26/19 13:41 Antibiotics) Physical Exam Vitals: Vital Signs Temp Pulse Pulse Resp BP BP BP 08/06/18 04:13 98.7 F 90 18 125/69 125/78 08/06/18 00:17 94 18 08/05/18 20:30 98.0 F 88 18 08/05/18 17:57 84 16 125/79 08/05/18 14:59 84 16 141/74 08/05/18 13:07 97.3 F L 80 16 136/78 BP Pulse Ox 08/06/18 04:13 116/64 95 08/06/18 00:17 119/63 94 L 08/05/18 20:30 130/63 94 L 08/05/18 17:57 95 08/05/18 14:59 94 L 08/05/18 13:07 94 L Intake and Output 08/05/18 08/06/18 08/06/18 22:59 06:59 14:59 Other: # Voids 2 Weight 92.6 kg PHYSICAL EXAMINATION: GENERAL: 88 stroke female in no acute distress at the time of my examination HEENT: Head is atraumatic, normocephalic. The patient does have 5 basia on the right posterior scalp area. Pupils equal, round. Sclera anicteric. Conjunctiva are clear. Mucous membranes of the mouth are moist. Neck is supple. There is no elevated jugular venous pressure. No carotid bruit is heard. HEART EXAMINATION: Heart S1, S2 normal. No murmur or gallop heard. CHEST EXAMINATION: Lungs are clear to auscultation and precussion. No chest wall tenderness is noted on palpation or with deep breathing. ABDOMEN: Soft, nontender. Bowel sounds are heard. No organomegaly noted. EXTREMITIES: 2+ peripheral pulses with trace evidence of peripheral edema left greater than right, and no calf tenderness noted. Negative Homans. NEUROLOGIC patient is awake, alert and oriented 3 . . Results 08/06/18 06:27 08/06/18 06:27 Cardiac Enzymes 08/05/18 08/05/18 08/05/18 Range/Units 13:31 13:31 19:40 AST 16 (14-36) U/L Troponin I <0.012 <0.012 (0.000-0.034) ng/mL 08/06/18 08/06/18 Range/Units 00:50 06:27 AST 15 (14-36) U/L Troponin I <0.012 (0.000-0.034) ng/mL Coagulation 08/05/18 Range/Units 13:31 PT 10.3 (9.0-12.0) sec APTT 25.9 (22.0-30.0) sec Lipids 08/06/18 Range/Units 06:27 Triglycerides 124 (<150) mg/dL Cholesterol 159 (<200) mg/dL HDL Cholesterol 53 (40-60) mg/dL CBC 08/05/18 08/06/18 Range/Units 13:31 06:27 WBC 7.6 5.5 (3.8-10.6) k/uL RBC 4.74 4.44 (3.80-5.40) m/uL Hgb 14.2 13.5 (11.4-16.0) gm/dL Hct 44.1 41.7 (34.0-46.0) % Plt Count 279 240 (150-450) k/uL Comprehensive Metabolic Panel 08/05/18 08/06/18 Range/Units 13:31 06:27 Sodium 141 139 (137-145) mmol/L Potassium 4.0 3.9 (3.5-5.1) mmol/L Chloride 103 104 (98-107) mmol/L Carbon Dioxide 30 28 (22-30) mmol/L BUN 24 H 20 H (7-17) mg/dL Creatinine 0.65 0.61 (0.52-1.04) mg/dL Glucose 92 103 H (74-99) mg/dL Calcium 9.9 9.8 (8.4-10.2) mg/dL AST 16 15 (14-36) U/L ALT 23 19 (9-52) U/L Alkaline Phosphatase 61 52 (38-126) U/L Total Protein 6.9 6.5 (6.3-8.2) g/dL Albumin 3.9 3.7 (3.5-5.0) g/dL Current Medications Generic Name Dose Route Start Last Admin Trade Name Freq PRN Reason Stop Dose Admin Acetaminophen 650 mg 08/05/18 16:20 08/06/18 08:01 Tylenol Tab PO 650 mg Q6HR PRN Administration Fever and/ or Pain Ascorbic Acid 1,000 mg 08/06/18 09:00 08/06/18 07:58 Vitamin C PO 1,000 mg DAILY ION Administration Aspirin 81 mg 08/06/18 09:00 08/06/18 07:59 Aspirin PO 81 mg DAILY ION Administration Calcium Carbonate 1 each 08/06/18 09:00 08/06/18 07:59 Oscal 500+D PO 1 each DAILY ION Administration Cholecalciferol 5,000 unit 08/06/18 09:00 08/06/18 07:58 Vitamin D3 PO 5,000 unit DAILY ION Administration Enoxaparin Sodium 40 mg 08/06/18 09:00 08/06/18 08:00 Lovenox SQ 40 mg DAILY ION Administration Famotidine 20 mg 08/06/18 09:00 08/06/18 08:00 Pepcid PO 20 mg DAILY ION Administration HCTZ/Losartan Potassium 2 each 08/06/18 09:00 Hyzaar 50-12.5 PO QAM [facility] Multivitamins 1 each 08/06/18 12:00 08/06/18 07:59 Theragran PO 1 each DAILY@1200 ION Administration Non-Formulary Medication 50 mg 08/06/18 09:00 Mirabegron [Myrbetriq] PO DAILY ION Sodium Chloride 10 ml 08/05/18 21:00 08/06/18 08:00 Saline Flush IV 10 ml BID ION Administration Intake and Output 08/05/18 08/06/18 08/06/18 22:59 06:59 14:59 Other: # Voids 2 Weight 92.6 kg 08/06/18 06:27 08/06/18 06:27 EKG Interpretations (text) EKG shows a normal sinus rhythm with right bundle branch block pattern. Assessment and Plan Plan: Assessment and plan #1 syncope, d-dimer elevated, rule out possibility of pulmonary embolism. #2 hypertension #3 multiple orthopedic surgeries from October of last year to March, patient has been quite sedentary since that time Plan We will obtain an echocardiogram with Doppler study. We have also recommended the patient undergo CT angiogram of the chest to rule out possibility of pulmonary embolism. We will monitor for any tachycardia or bradycardia arrhythmias and monitor orthostatics every shift. Patient did receive a dose of enoxaparin. Further recommendations to follow. DNP note has been reviewed, I agree with a documented findings and plan of care. Patient was seen and examined.
[2018-08-06] MEDS ORDERED: ENOXAPARIN 60 MG/0.6 ML SYRINGE SQ STA (08:44)
[2018-08-06] MEDS: NON-FORMULARY DRUG (Mirabegron [Myrbetriq] 50 MG) PO SCH (09:04)
[2018-08-06] MEDS: LOSARTAN-HCTZ 50-12.5 MG 1 EACH TAB PO SCH (09:09)
--- NOTE | 2018-08-06 10:29 | CT ---
EXAMINATION TYPE: CT angio chest DATE OF EXAM: 08/06/2018 COMPARISON: 01/05/2011 HISTORY: Elevated d-dimer, syncope CT DLP: 333.8 mGycm. Automated Exposure Control for Dose Reduction was Utilized. CONTRAST: CTA scan of the thorax is performed with IV Contrast, patient injected with 100 mL of Isovue 370, pul monary embolism protocol. MIP Images are created on CT scanner and reviewed. FINDINGS: LUNGS: There is multifocal subsegmental atelectasis and bandlike pleural parenchymal scarring and/or atelectasis at the right lung base contacting the pleural surface as well as medially within the righ t lower lobe in the superior segment. Otherwise the lungs are grossly clear, there is no concerning p arenchymal mass or nodule identified. There is no pleural effusion or pneumothorax seen. The trach eobronchial tree is patent. MEDIASTINUM: There is satisfactory enhancement of the pulmonary artery and its branches, there is no CT evidence for pulmonary embolism. There are no greater than 1 cm hilar or mediastinal lymph nodes. Heart is enlarged without pericardial effusion. OTHER: Too small to accurately characterize exophytic left upper pole renal lesion favored to represe nt a cyst. Moderate multilevel degenerative changes of the spine are present. S-shaped scoliotic curv ature is noted. IMPRESSION: 1. No evidence of pulmonary embolus. 2. Multifocal subsegmental atelectasis. New suspicious finding to suggest pneumonia.
--- NOTE | 2018-08-06 11:38 | ECHOF ---
Referral Reason:syncope MEASUREMENTS -------- HEIGHT: 157.5 cm WEIGHT: 93.0 kg BP: 141/74 RVIDd: 2.2 cm (< 3.3) IVSd: 1.1 cm (0.6 - 1.1) LVIDd: 4.0 cm (3.9 - 5.3) LVPWd: 1.1 cm (0.6 - 1.1) IVSs: 1.4 cm LVIDs: 3.0 cm LVPWs: 1.3 cm LAESV Index (A-L): 12.95 ml/m Ao Diam: 3.0 cm (2.0 - 3.7) AV Cusp: 1.5 cm (1.5 - 2.6) LA Diam: 2.2 cm (2.7 - 3.8) MV EXCURSION: 14.273 mm (> 18.000) MV EF SLOPE: 82 mm/s (70 - 150) EPSS: 0.6 cm MV E Tad: 0.53 m/s MV DecT: 261 ms MV A Tad: 0.75 m/s MV E/A Ratio: 0.71 RAP: 5.00 mmHg RVSP: 24.32 mmHg FINDINGS -------- Sinus rhythm. This was a technically difficult study with suboptimal views. The left ventricular size is normal. Left ventricular wall thickness is normal. Overall left vent ricular systolic function is normal with, an EF between 60 - 65 %. The right ventricle is normal in size and function. Normal LA size by volume 22+/-6 ml/m2. The right atrium is normal in size. 3ml of Lumason was utilized for enhancement of images. Aortic valve is trileaflet and is mildly thickened. There is no evidence of aortic regurgitation. There is no evidence of aortic stenosis. The mitral valve leaflets are mildly thickened. Mild mitral annular calcification present. There is trace to mild mitral regurgitation. Trace tricuspid regurgitation present. Right ventricular systolic pressure is normal at < 35 mmHg. There is no evidence of pulmonary hypertension. Trace/mild (physiologic) pulmonic regurgitation. The aortic root size is normal. Normal inferior vena cava with normal inspiratory collapse consistent with estimated right atrial pre ssure of 5 mmHg. There is no pericardial effusion. CONCLUSIONS -------- 1. Sinus rhythm. 2. This was a technically difficult study with suboptimal views. 3. The left ventricular size is normal. 4. Left ventricular wall thickness is normal. 5. Overall left ventricular systolic function is normal with, an EF between 60 - 65 %. 6. Normal LA size by volume 22+/-6 ml/m2. 7. 3ml of Lumason was utilized for enhancement of images. 8. Aortic valve is trileaflet and is mildly thickened. 9. The mitral valve leaflets are mildly thickened. 10. Mild mitral annular calcification present. 11. There is trace to mild mitral regurgitation. 12. Trace tricuspid regurgitation present. 13. Right ventricular systolic pressure is normal at < 35 mmHg. 14. There is no evidence of pulmonary hypertension. 15. Trace/mild (physiologic) pulmonic regurgitation. 16. The aortic root size is normal. 17. There is no pericardial effusion. CARDIOVASCULAR TECHNOLOGIST: Brady Maurice RDCS
--- NOTE | 2018-08-06 14:10 | P.PN ---
Subjective Progress Note Date: 08/06/18 This is a 78-year-old female patient of Dr. Holley. Patient presented to ER with complaints of syncopal episode. Patient reports that she just had her nails and was walking to her car and patient reports she does not remember but she woke up on the ground. Patient denies any symptoms prior to event including dizziness lightheadedness chest pain or shortness of breath. Patient reports that she has been feeling well these past few days denies any illness chest pain or shortness breath. Patient denies any history of heart attacks or cardiac conditions. Patient does have a past medical history of CVA TIA, urinary, hypertension, osteoarthritis, cholecystectomy, left total knee repair in which she had to undergo the 2 tendon repairs in November and December of 2017. Head CT completed in ER showing age-related atrophic and chronic small vessel ischemic changes without acute intracranial process is seen at this time. Chest x-ray completed in ER showing chronic findings with no acute cardiopulmonary process. EKG completed in ER showing normal sinus rhythm, right bundle branch block, left posterior fascicular block. Bifascicular block. She did have 4 basia to right scalp laceration. At this time cardiology services have been consulted. 2-D echo and carotid Doppler ordered. Patient is currently resting comfortably in bed. Patient denies chest pain or shortness breath. Patient denies nausea vomiting or diarrhea. Patient denies any urinary burning or frequency On 08/06/2018 patient is alert and oriented 3. Patient did have elevated d- dimer at 3.53. CTA completed showing no PE for possible pneumonia. Will consult pulmonary care at this time. Patient denies chest pain or shortness breath. Patient denies nausea vomiting or diarrhea. Patient denies any urinary burning or frequency Objective - Vital Signs Vital signs: Vital Signs Temp 98.2 F 08/06/18 12:00 Pulse 87 08/06/18 12:00 Resp 18 08/06/18 12:00 BP 115/57 08/06/18 12:00 Pulse Ox 94 L 08/06/18 12:00 Intake & Output 08/05/18 08/06/18 08/06/18 18:59 06:59 18:59 Intake Total 220 Output Total 600 Balance -380 Weight 92.986 kg 92.6 kg Intake: IV 20 Invasive Line 1 20 Oral 200 Output: Urine 600 Other: # Voids 2 - Exam Head normocephalic Neck supple Lungs clear to auscultation bilaterally no wheezing or crackles Heart regular rate and rhythm S1-S2, no rub or gallop Abdomen is soft nontender nondistended positive bowel sounds no hepatosplenomegaly Extremities no edema Neuro alert and orientated to 3 - Labs CBC & Chem 7: 08/06/18 06:27 08/06/18 06:27 Labs: Abnormal Lab Results - Last 24 Hours (Table) 08/05/18 08/06/18 Range/Units 13:31 06:27 D-Dimer 3.53 H (<0.60) mg/L FEU BUN 20 H (7-17) mg/dL Glucose 103 H (74-99) mg/dL Assessment and Plan Assessment: 1. Syncopal episode. Initial troponin negative. Head CT completed showing age-related atrophic and chronic small vessel ischemic change without acute intracranial process is seen at this time. Chest x-ray completed showing chronic findings no acute cardiopulmonary process. EKG completed showing normal sinus rhythm right bundle branch block. Left posterior vascular black Bifascicular block. Elevated BMI 3.53 CTA showing no evidence of pulmonary embolism. 2-D echo completed showing an EF of 60-65%. Carotid Doppler completed showing anterograde flow in the vertebral arteries. Images measurements chest less than 25% stenosis in both internal carotid arteries. 2. History of left total knee arthroplasty with tendon repair 2 in March 2018 3. History of essential hypertension 4. History of osteoarthritis 5. History of migraines 6. History of cholecystectomy 7. Possible pneumonia. Patient had CT completed due to elevated d-dimer showing new suspicious findings to suggest pneumonia. Pulmonary services have been consulted DVT prophylaxis Lovenox. GI prophylaxis Pepcid I performed an examination of the patient and discussed their management with the Nurse Practitioner. I have reviewed the Nurse Practitioner's notes and agree with the documented findings and plan of care
[2018-08-07] MEDS: CHOLECALCIFEROL 1,000 UNIT TAB PO SCH (08:10)
[2018-08-07] MEDS: CALCIUM CARB-VIT D 500MG-200UN 1 EACH TAB PO SCH (08:10)
[2018-08-07] MEDS: ASCORBIC ACID 500 MG TAB PO SCH (08:10)
[2018-08-07] MEDS: ENOXAPARIN 40 MG/0.4 ML SYRINGE SQ SCH (08:10)
[2018-08-07] MEDS: LOSARTAN-HCTZ 50-12.5 MG 1 EACH TAB PO SCH (08:10)
[2018-08-07] MEDS: ACETAMINOPHEN TAB 325 MG TAB PO PRN (08:11)
[2018-08-07] MEDS: ASPIRIN 81 MG PO SCH (08:11)
[2018-08-07] MEDS: FAMOTIDINE 20 MG TAB PO SCH (08:11)
[2018-08-07] MEDS: NON-FORMULARY DRUG (Mirabegron [Myrbetriq] 50 MG) PO SCH (08:13)
[2018-08-07 08:15] LABS: Basophils % (A) 1 %; Eosinophils # (A) 0.3 k/uL (0-0.7); Eosinophils % (A) 6 %; HCT 40.6 % (34.0-46.0); HGB 12.7 gm/dL (11.4-16.0); Lymphocytes # (A) 1.4 k/uL (1.0-4.8); Lymphocytes % (A) 26 %; MCH 29.4 pg (25.0-35.0); MCHC 31.3 g/dL (31.0-37.0); Mean Platelet Volume 7.3; Monocytes # (A) 0.4 k/uL (0-1.0); Monocytes % (A) 7 %; Neutrophils # (A) 3.2 k/uL (1.3-7.7); Neutrophils % (A) 58 %; Platelet Count 231 k/uL (150-450); RBC 4.32 m/uL (3.80-5.40); RDW 13.7 % (11.5-15.5); WBC 5.4 k/uL (3.8-10.6)
[2018-08-07 08:28] LABS: ALT 25 U/L (9-52); AST 13 U/L (14-36); Albumin 3.6 g/dL (3.5-5.0); Alkaline Phosphatase 50 U/L (38-126); Anion Gap 8 mmol/L; Blood Urea Nitrogen 17 mg/dL (7-17); Calcium 9.4 mg/dL (8.4-10.2); Carbon Dioxide 29 mmol/L (22-30); Chloride 102 mmol/L (98-107); Glucose 104 mg/dL (74-99); Potassium 3.8 mmol/L (3.5-5.1); Sodium 139 mmol/L (137-145); Total Bilirubin 0.6 mg/dL (0.2-1.3); Total Protein 6.4 g/dL (6.3-8.2)
[2018-08-07] MEDS: MULTIVITAMINS, THERA 1 EACH TAB PO SCH (11:30)
--- NOTE | 2018-08-07 12:34 | P.PN ---
Subjective Progress Note Date: 08/07/18 This is a pleasant 78 stroke female with known history of hypertension, nondiabetic, no hyperlipidemia, nonsmoker, who has history of knee surgery in March of last year, this was her for surgery since October of that [facility]. She has been quite sedentary until about a week ago when she started to ambulate a little bit more with her cane. Patient did have a hospitalization in December 2015 she had an echo performed at that time which revealed a normal left ventricular systolic function, it is also noted that the patient had a myocardial stress test performed which revealed pharmacologically induced left ventricular ischemia. She went to a nail appointment yesterday, felt well, walked out to her car, and the next thing she recalled was waking up after having passed out and fallen down. She did hit her head requiring multiple basia. She denies any symptoms prior to passing out, she had no dizziness or lightheadedness, no palpitations or chest discomfort. She was aler t and oriented 3 upon wakening and she did not lose bowel or bladder function. CAT scan of the brain performed on arrival showed age-related atrophic and chronic small vessel ischemic change without any acute intracranial process. Chest x-ray showed chronic findings with no acute cardiopulmonary process. EKG shows a normal sinus rhythm with a right bundle branch block pattern. Carotid duplex study was performed which was negative for any significant obstruction. Blood pressure 136/78 on arrival with a heart rate in the 80s, 94% on room air. White blood cell count 5.5, hemoglobin 13.5, platelet count 240. D-dimer 3.5. Sodium 139, potassium 3.9, BUN 20 and creatinine 0.6. Magnesium 1.9. Troponins negative 3. At the time of my examination this morning, patient feels well, denies any dizziness or lightheadedness. In view of the fact the patient had a syncopal episode with an abnormal d-dimer we have recommended that the patient undergo a CT angiogram of the chest to rule out the possibility of pulmonary embolism. We will also monitor for any tachycardia or bradycardia arrhythmias and monitor orthostatics every shift. 08/07/2018 Patient seen and examined this morning, CTA of the chest performed yesterday was negative for any pulmonary embolism. No evidence of any orthostasis noted and no tachycardia or bradycardia arrhythmias noted. Blood pressure this morning 10 8/60 with a heart rate in the 70s, 94% on room air. Blood cell count 5.4, hemoglobin 12.2, platelet count 231. Sodium 139, potassium 3.9, BUN 17 and creatinine 0.5. Echocardiogram with Doppler study was performed which revealed an ejection fraction of 60-65%, RVSP normal. Objective - Vital Signs Vital signs: Vital Signs Temp 98.3 F 08/07/18 11:34 Pulse 76 08/07/18 11:34 Resp 18 08/07/18 11:34 BP 108/59 08/07/18 11:34 Pulse Ox 94 L 08/07/18 11:34 Intake & Output 08/06/18 08/07/18 08/07/18 18:59 06:59 18:59 Intake Total 590 240 300 Output Total 600 Balance -10 240 300 Weight 93.1 kg Intake: IV 30 Invasive Line 1 30 Oral 560 240 300 Output: Urine 600 Other: # Voids 1 - Exam PHYSICAL EXAMINATION: GENERAL: 88 stroke female in no acute distress at the time of my examination HEENT: Head is atraumatic, normocephalic. The patient does have 5 basia on the right posterior scalp area. Pupils equal, round. Sclera anicteric. Conjunctiva are clear. Mucous membranes of the mouth are moist. Neck is supple. There is no elevated jugular venous pressure. No carotid bruit is heard. HEART EXAMINATION: Heart S1, S2 normal. No murmur or gallop heard. CHEST EXAMINATION: Lungs are clear to auscultation and precussion. No chest wall tenderness is noted on palpation or with deep breathing. ABDOMEN: Soft, nontender. Bowel sounds are heard. No organomegaly noted. EXTREMITIES: 2+ peripheral pulses with trace evidence of peripheral edema left greater than right, and no calf tenderness noted. Negative Homans. NEUROLOGIC patient is awake, alert and oriented 3 . . - Labs CBC & Chem 7: 08/07/18 07:13 08/07/18 07:13 Labs: Abnormal Lab Results - Last 24 Hours (Table) 08/07/18 Range/Units 07:13 Glucose 104 H (74-99) mg/dL AST 13 L (14-36) U/L Assessment and Plan Plan: Assessment and plan #1 syncope, d-dimer elevated, rule out possibility of pulmonary embolism. #2 hypertension #3 multiple orthopedic surgeries from October of last year to March, patient has been quite sedentary since that time Plan CT of the chest negative for pulmonary embolism. Echo revealed normal left ventricular systolic function. No evidence of any tachycardia or bradycardia arrhythmias and no orthostatic documented. From cardiology's perspective, patient may be able to be discharged home once cleared by primary. We will recommend a 30 day event monitor on discharge. 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 DNP note has been reviewed, I agree with a documented findings and plan of care. Patient was seen and examined.
--- NOTE | 2018-08-07 15:07 | US ---
EXAMINATION TYPE: US venous doppler duplex LE BI DATE OF EXAM: 08/07/2018 2:43 PM COMPARISON: NONE CLINICAL HISTORY: r/o DVT. Leg pain, more on left side SIDE PERFORMED: Bilateral TECHNIQUE: The lower extremity deep venous system is examined utilizing real time linear array sonog shannon with graded compression, doppler sonography and color-flow sonography. VESSELS IMAGED: External Iliac Vein (EIV) Common Femoral Vein Deep Femoral Vein Greater Saphenous Vein * Femoral Vein Popliteal Vein Small Saphenous Vein * Proximal Calf Veins (* superficial vessels) Right Leg: Negative for DVT Left Leg: Negative for DVT Atherosclerotic change of the right external iliac artery and common femoral artery not excluded and could be correlated with a dedicated arterial series as clinically warranted. IMPRESSION: 1. No diagnostic evidence of DVT
--- NOTE | 2018-08-07 15:35 | P.DS ---
Providers Date of admission: 08/05/18 15:39 Expected date of discharge: 08/07/18 Attending physician: Joe Keith Consults: 08/05/18 15:39 Consult Physician Urgent Consulting Provider: Ely Luevano Consult Reason/Comments: CT, evaluate QTC Do you want consulting provider notified?: Yes 08/06/18 13:42 Consult Physician Routine Consulting Provider: Astrid Wright Consult Reason/Comments: possible pneumonia on CTA Do you want consulting provider notified?: Yes Primary care physician: Susannah Holley Hospital Course: Discharge diagnosis 1. Syncopal episode. Initial troponin negative. Head CT completed showing age-related atrophic and chronic small vessel ischemic change without acute intracranial process is seen at this time. Chest x-ray completed showing chronic findings no acute cardiopulmonary process. EKG completed showing normal sinus rhythm right bundle branch block. Left posterior vascular black Bifascicular block. Elevated BMI 3.53 CTA showing no evidence of pulmonary embolism. 2-D echo completed showing an EF of 60-65%. Carotid Doppler completed showing anterograde flow in the vertebral arteries. Images measurem ents less than 25% stenosis in both internal carotid arteries. Per cardiology services patient has been cleared for discharge by recommending 30 day event monitor. Patient may get this prior to discharge and follow-up with her foster care therapist in [place]. 2. History of left total knee arthroplasty with tendon repair 2 in March 2018 3. History of essential hypertension 4. History of osteoarthritis 5. History of migraines 6. History of cholecystectomy 7. Possible pneumonia ruled out. Patient had CT completed due to elevated d- dimer showing new suspicious findings to suggest pneumonia. Discussed case with pulmonary SUPREME COURT JUDGE no pneumonia present no need for antibiotics patient has been cleared for discharge 8. Elevated d-dimer. Chest CTA completed showing no evidence for pulmonary embolism. Venous Doppler completed showing negative for DVT bilaterally Hospital course This is a 78-year-old female patient of Dr. Holley. Patient presented to ER w ith complaints of syncopal episode. Patient reports that she just had her nails and was walking to her car and patient reports she does not remember but she woke up on the ground. Patient denies any symptoms prior to event including dizziness lightheadedness chest pain or shortness of breath. Patient reports that she has been feeling well these past few days denies any illness chest pain or shortness breath. Patient denies any history of heart attacks or cardiac conditions. Patient does have a past medical history of CVA TIA, urinary, hypertension, osteoarthritis, cholecystectomy, left total knee repair in which she had to undergo the 2 tendon repairs in November and December of 2017. Head CT completed in ER showing age-related atrophic and chronic small vessel ischemic changes without acute intracranial process is seen at this time. Chest x-ray completed in ER showing chronic findings with no acute cardiopulmonary process. EKG completed in ER showing normal sinus rhythm, right bundle branch block, left posterior fascicular block. Bifascicular block. She did have 4 basia to right scalp laceration. At this time cardiology services have been consulted. 2-D echo and carotid Doppler ordered. Patient is currently resting comfortably in bed. Patient denies chest pain or shortness breath. Patient denies nausea vomiting or diarrhea. Patient denies any urinary burning or frequency On 08/06/2018 patient is alert and oriented 3. Patient did have elevated d- dimer at 3.53. CTA completed showing no PE for possible pneumonia. Will consult pulmonary care at this time. Patient denies chest pain or shortness breath. Patient denies nausea vomiting or diarrhea. Patient denies any urinary burning or frequency On 08/07/2018 patient is alert and oriented 3. CTA and venous Doppler negative for PE and DVT. Patient receives no pneumonia no requirement for antibiotic. All lab work reviewed. 2-D echo and carotid Doppler completed. Cardiology recommending 30 day event monitor prior to discharge. Discussed this with nursing staff. 30 day event monitor to be placed prior to Discharge follow-up with her foster care therapist. At this time patient denies chest pain or shortness breath. Patient denies nausea vomiting or diarrhea. Patient denies any urinary burning or frequency. I performed an examination of the patient and discussed their management with the Nurse Practitioner. I have reviewed the Nurse Practitioner's notes and agree with the documented findings and plan of care Patient Condition at Discharge: Stable Plan - Discharge Summary Discharge Rx Participant: No New Discharge Prescriptions: Continue Multivitamins, Thera [Multivitamin (formulary)] 1 tab PO DAILY Ascorbic Acid [Vitamin C] 1,000 mg PO DAILY Cholecalciferol [Vitamin D3] 5,000 unit PO DAILY Mirabegron [Myrbetriq] 50 mg PO DAILY Aspirin [Adult Low Dose Aspirin EC] 81 mg PO DAILY Celecoxib [CeleBREX] 200 mg PO BID Losartan/Hydrochlorothiazide [Hyzaar 100-25 Tablet] 1 tab PO QAM Calcium Carbonate/Vitamin D3 [Calcium 600-Vit D3 500 Softgel] 1 cap PO DAILY Discharge Medication List Ascorbic Acid [Vitamin C] 1,000 mg PO DAILY 01/04/15 [History] Multivitamins, Thera [Multivitamin (formulary)] 1 tab PO DAILY 01/04/15 [History] Cholecalciferol [Vitamin D3] 5,000 unit PO DAILY 01/09/16 [History] Mirabegron [Myrbetriq] 50 mg PO DAILY 02/11/17 [History] Aspirin [Adult Low Dose Aspirin EC] 81 mg PO DAILY 03/28/18 [History] Celecoxib [CeleBREX] 200 mg PO BID 03/28/18 [History] Losartan/Hydrochlorothiazide [Hyzaar 100-25 Tablet] 1 tab PO QAM 03/28/18 [History] Calcium Carbonate/Vitamin D3 [Calcium 600-Vit D3 500 Softgel] 1 cap PO DAILY 08/05/18 [History] Follow up Appointment(s)/Referral(s): Srinivasan Augustine MD [STAFF PHYSICIAN] - 1 Week ([employer]- Office will call with follow up appointment.) Susannah Holley MD [Primary Care Provider] - 08/14/18 2:15 pm (With Denny Ventura NP.) Patient Instructions/Handouts: Syncope (DC), Pneumonia (DC) Discharge Disposition: HOME SELF-CARE
--- NOTE | 2018-08-07 15:41 | P.CNPUL ---
History of Present Illness Consult date: 08/07/18 Requesting physician: Joe Keith Reason for consult: abnormal CXR/CT Chief complaint: Syncopal episode History of present illness: This is a very pleasant 78 year old female patient who follows with Dr. Holley as her primary care physician. She has a history of CVA/TIA, walks with a cane, difficulty in hearing, hypertension, osteoarthritis, very well history of smoking. She had presented here on 08/05/2018 after sustaining a syncopal episode which caused her just strike her head and did require 4 basia. She states she was putting her purse and cane into her car and then went to stand up to get in her car and collapse. She did fall and strike her head. She woke quickly she states and had no loss of bowel or bladder. No pre-or post symptoms. No chest pain, palpitations lightheadedness or dizziness. No shortness of breath, cough or congestion. In the emergency room computed tomography scan of the brain revealed no acute abnormalities. Echocardiogram revealed preserved left ventricular systolic function. EKG with right bundle branch block. Carotid Dopplers revealed no significant stenosis. Dopplers of lower extremity revealed no DVT. CT angiogram ruled out pulmonary embolus. There was multifocal subsegmental atelectasis but no evidence of pneumonia. We are consulted for the same. She is seen today on the selective care unit. She is awake and alert in no acute distress. No further syncopal episodes since her arrival. She has no pulmonary complaints. She's never been seen by a osteopathic medicine teacher. No cough or congestion. No fever chills or night sweats. She is maintaining good O2 saturations in the 90s on room air. White count 5.4. Hemoglobin 12.7. Creatinine 0.59. Troponins negative. Urine negative. Review of Systems REVIEW OF SYSTEMS: CONSTITUTIONAL: Denies any recent significant weight loss or weight gain. EYES: Denies change in vision. EARS, NOSE, MOUTH, THROAT: Denies headaches, denies sore throat. CARDIOVASCULAR: Denies chest pain, palpitations or syncopal episodes. RESPIRATORY: Denies shortness of breath, cough, congestion or hemoptysis. GASTROINTESTINAL: Denies change in appetite, denies abdominal pain GENITOURINARY: Denies hematuria, denies infections. MUSKULOSKELETAL: Denies pain, denies swelling. INTEGUMENTARY: Denies rash, denies eczema. NEUROLOGICAL: Positive for syncopal episode. PSYCHIATRIC: Denies anxiety, denies depression. HEMATOLOGIC/LYMPHATIC: Denies anemia, denies enlarged lymph nodes. Past Medical History Past Medical History: CVA/TIA, Hearing Disorder / Deafness, Hypertension, Osteoarthritis (OA) Additional Past Medical History / Comment(s): HX OF HOLE IN HEART WITH SURGICAL REPAIR., MIGRAINES, SCOLIOSIS, IMMOBILIZER LEFT KNEE., hx TIA-no effects, constipation, History of Any Multi-Drug Resistant Organisms: None Reported Past Surgical History: Section, Cholecystectomy, Hysterectomy, Joint Replacement, Orthopedic Surgery Additional Past Surgical History / Comment(s): PVO CLOSURE (2006)., LEFT SHOULDER REPLACEMENT, RIGHT KNEE replacement, RT FOOT BUNION , LASIK EYE SURGERY, TOTAL LEFT KNEE (11/04/17), LEFT KNEE TENDON REPAIR (11/18/17 and 12/23/17). Past Anesthesia/Blood Transfusion Reactions: Family History of Problems w/ Anesthesia, Postoperative Nausea & Vomiting (PONV) Additional Past Anesthesia/Blood Transfusion Reaction / Comment(s): son and daughter severe PONV Past Psychological History: No Psychological Hx Reported Smoking Status: Never smoker Past Alcohol Use History: Occasional Additional Past Alcohol Use History / Comment(s): started smoking as teen, quit smoking 50 yrs ago Past Drug Use History: None Reported - Past Family History Mother Family Medical History: Dementia, Diabetes Mellitus Father Family Medical History: Cancer Additional Family Medical History / Comment(s): NON-HODGKINS LYMPHOMA Medications and Allergies Home Medications Medication Instructions Recorded Confirmed Type Ascorbic Acid [Vitamin C] 1,000 mg PO DAILY 01/04/15 08/05/18 History Multivitamins, Thera [Multivitamin 1 tab PO DAILY 01/04/15 08/05/18 History (formulary)] Cholecalciferol [Vitamin D3] 5,000 unit PO DAILY 01/09/16 08/05/18 History Mirabegron [Myrbetriq] 50 mg PO DAILY 02/11/17 08/05/18 History Aspirin [Adult Low Dose Aspirin EC] 81 mg PO DAILY 03/28/18 08/05/18 History Celecoxib [CeleBREX] 200 mg PO BID 03/28/18 08/05/18 History Losartan/Hydrochlorothiazide 1 tab PO QAM 03/28/18 08/05/18 History [Hyzaar 100-25 Tablet] Calcium Carbonate/Vitamin D3 1 cap PO DAILY 08/05/18 08/05/18 History [Calcium 600-Vit D3 500 Softgel] Allergies Allergy/AdvReac Type Severity Reaction Status Date / Time Sulfa (Sulfonamide AdvReac migraine Verified 08/05/18 13:41 Antibiotics) Physical Exam Vitals: Vital Signs Temp Pulse Resp BP Pulse Ox 08/07/18 11:34 98.3 F 76 18 108/59 94 L 08/07/18 08:15 98 F 83 18 112/66 93 L 08/07/18 04:31 91 18 109/55 95 08/07/18 00:48 98.2 F 83 18 117/60 08/06/18 20:35 98.2 F 88 18 108/59 94 L Intake and Output 08/07/18 08/07/18 08/07/18 06:59 14:59 22:59 Intake Total 540 Output Total 1200 Balance 540 -1200 Intake: Oral 540 Output: Urine 1200 Other: # Voids 1 Weight 93.1 kg GENERAL EXAM: Alert, active, comfortable in no apparent distress. On room air. HEAD: Normocephalic. Small hematoma posteriorly with 4 basia intact. EYES: Normal reaction of pupils, equal size. NOSE: Clear with pink turbinates. THROAT: No erythema or exudates. NECK: No masses, no JVD. CHEST: No chest wall deformity. LUNGS: Equal air entry with no crackles, wheeze, rhonchi or dullness. CVS: S1 and S2 normal with no audible murmur, regular rhythm. ABDOMEN: No hepatosplenomegaly, normal bowel sounds, no guarding or rigidity. SPINE: No scoliosis or deformity SKIN: No rashes CENTRAL NERVOUS SYSTEM: No focal deficits, tone is normal in all 4 extremities. EXTREMITIES: There is no peripheral edema. No clubbing, no cyanosis. Peripheral pulses are intact. Results - Laboratory Findings CBC and BMP: 08/07/18 07:13 08/07/18 07:13 PT/INR, D-dimer PT 10.3 sec (9.0-12.0) 08/05/18 13:31 INR 1.0 (<1.2) 08/05/18 13:31 D-Dimer 3.53 mg/L FEU (<0.60) H 08/05/18 13:31 Abnormal lab findings: Abnormal Labs 08/05/18 08/05/18 08/06/18 13:31 13:31 06:27 D-Dimer 3.53 H BUN 24 H 20 H Glucose 103 H AST 08/07/18 07:13 D-Dimer BUN Glucose 104 H AST 13 L - Diagnostic Findings CT scan - chest: image reviewed Assessment and Plan Assessment: Impression: #1 Syncopal episode of unclear etiology. Computed tomography scan of the brain showed no acute abnormalities, carotid Doppler showed no significant carotid stenosis, CT angiogram ruled out pulmonary embolism, Dopplers lower extremity reveal no DVT. No arrhythmias noted. Troponins negative. #2 Subsegmental atelectasis in the lung bases per computed tomography scan. No pulmonary complaints. O2 sat in the 90s on room air. #3 Very remote history of 5 years of smoking quit over 50 years ago. #4 History of CVA/TIA. #5 History of hearing disorder. #6 Hypertension. #7 Osteoarthritis. Plan: The patient was seen and evaluated by Dr. Wright. No pulmonary complaints. On room air. Subsegmental atelectasis of no clinical value. No evidence of pneumonia. No leukocytosis. Afebrile. She is cleared for discharge from the pulmonary standpoint. To follow with her PCP. I, the cosigning physician, performed a history & physical examination of the patient. Lungs sounds are clear. Maintaining good O2 saturations in the 90s on room air. I discussed the assessment and plan of care with my nurse practitioner, Whitney Reardon. I attest to the above note as dictated by her. Time with Patient: Greater than 30
[2018-08-07 16:47] VITALS: BP 113/59; PULSE 93; RESP 12; TEMP 97.6
== END 2018-08-07 16:40 | disposition home or self-care (01) ==
LOC: EC 12:52 → 3SCARD 15:39 → INTOOBSV 15:39 → 3SCARD 17:54
PROVIDERS: ADMIT Internal Medicine; ATTEND Internal Medicine
DX: R55 Syncope and collapse (principal); R79.89 Other specified abnormal findings of blood chemistry; S01.01XA Laceration without foreign body of scalp, initial encounter; J98.11 Atelectasis; I67.82 Cerebral ischemia; M19.90 Unspecified osteoarthritis, unspecified site; I10 Essential (primary) hypertension; H91.90 Unspecified hearing loss, unspecified ear; M41.9 Scoliosis, unspecified; G43.909 Migraine, unspecified, not intractable, without status migrainosus; K59.00 Constipation, unspecified; I45.2 Bifascicular block; I44.5 Left posterior fascicular block; I45.10 Unspecified right bundle-branch block; Z79.82 Long term (current) use of aspirin; Z79.899 Other long term (current) drug therapy; Z88.2 Allergy status to sulfonamides; Z86.73 Personal history of transient ischemic attack (TIA), and cerebral infarction without residual deficits; Z90.710 Acquired absence of both cervix and uterus; Z90.49 Acquired absence of other specified parts of digestive tract; Z96.653 Presence of artificial knee joint, bilateral; Z96.612 Presence of left artificial shoulder joint; Z87.891 Personal history of nicotine dependence; Z87.74 Personal history of (corrected) congenital malformations of heart and circulatory system; Z84.89 Family history of other specified conditions; Z80.7 Family history of other malignant neoplasms of lymphoid, hematopoietic and related tissues; Z83.3 Family history of diabetes mellitus; Z81.8 Family history of other mental and behavioral disorders; W01.10XA Fall on same level from slipping, tripping and stumbling with subsequent striking against unspecified object, initial encounter; Z23 Encounter for immunization
CPT/HCPCS: 96372 ×2; 12001; 99285; 36415; 93005; 85379; 80061; 80053 ×3; 83735; 84484 ×2; 85025 ×3; 85610; 85730; 81003; 71046; 93880; 93970; 70450; 71275; 90715; G0378 ×3; C8929; J1650 ×3; Q9950; Q9967; 93306

== ENCOUNTER → 2018-12-04 | Outpatient (CLI) | payer BC ==
--- NOTE | 2018-12-04 16:08 | BD ---
EXAMINATION TYPE: Axial Bone Density DATE OF EXAM: 12/04/2018 COMPARISON: NONE CLINICAL HISTORY: 78 YR OLD FEMALE....ICD-10 CODE: M89.9 DISORDER OF BONE Height: 60.3 Weight: 206 FRAX RISK QUESTIONS: Family History (Parent hip fracture): YES 3. Menopause before 45: TOTAL HYST AT 47 YRS OLD RISK FACTORS HISTORY OF: LT ANKLE UNDER AGE 52 Family History of Osteoporosis: YES, MOTHER WITH HIP FRACTURES Active: NO, USES CANE, LIMPS Diet low in dairy products/other sources of calcium: YES, LACTOSE INTOLERANT Postmenopausal woman: TOTAL HYST AT AGE 47 Take estrogen and/or progesterone medications: IN THE PAST FOR ABOUT 5-10 YRS, NONE NOW Lost more than 2 inches in height since high school: YES Frequent falls: UNSTEADY, USES CANE MEDICATIONS: Additional Medications: BP MEDS, IN PAST, NOT ON NOW, CALCIUM AND VIT SUPP. Additional History: OSTEOARTHRITIS EXAM MEASUREMENTS: Bone mineral densitometry was performed using the [employer] System. Bone mineral density as measured about the Lumbar spine is: ----- L1-L4(G/cm2): 1.344 T Score Values are as follows: ----- L1: 0.6 ----- L2: 1.2 ----- L3: 1.8 ----- L4: 1.8 ----- L1-L4: 1.4 Bone mineral density FIRST DEXA AT [facility] Bone mineral density about the R hip (g/cm2): 0.930 Bone mineral density about the L hip (g/cm2): 0.907 T Score values are as follows: -----R Neck: -0.6 -----L Neck: -1.0 -----R Total: -0.6 -----L Total: -0.8 Bone mineral density FIRST DEXA AT [facility] FRAX%s: THERE IS A 14.3% CHANCE FOR A MAJOR OSTEOPOROTIC FX AND A 5.9% FOR HIP.....PROBABILITY FOR FX IN 10 YRS TIME IMPRESSION: Normal (Values between +1 and -1 indicate normal bone mass). However the exam is borderline for osteo penia. Consider repeating this study in 5 years or sooner if there is some new clinical indication. NOTE: T-SCORE=SD OF THE YOUNG ADULT MEAN.
--- NOTE | 2018-12-05 09:12 | MM ---
Reason for exam: screening (asymptomatic). Last mammogram was performed 2 years and 1 month ago. History: Patient is postmenopausal. Took estrogen beginning at age 47. Physical Findings: A clinical breast exam by your physician is recommended on an annual basis and results should be correlated with mammographic findings. MG 3D Screening Mammo W/Cad Bilateral CC and MLO view(s) were taken. Prior study comparison: November 05, 2016, bilateral MG 3d screening mammo w/cad. May 01, 2016, left breast MG 3d diag mammo w/cad LT. There are scattered fibroglandular densities. There is no discrete abnormality. No significant changes when compared with prior studies. ASSESSMENT: Negative, BI-RAD 1 RECOMMENDATION: Routine screening mammogram of both breasts in 1 year.
== END | disposition home or self-care (01) ==
LOC: RADMAMWWP 14:18
PROVIDERS: ATTEND Family Medicine
DX: Z12.31 Encounter for screening mammogram for malignant neoplasm of breast (principal); M85.80 Other specified disorders of bone density and structure, unspecified site
CPT/HCPCS: 77063; 77067; 77080

== ENCOUNTER → 2020-01-29 | Outpatient (CLI) | payer MEDICARE, BC ==
[2020-01-29 08:34] LABS: C Reactive Protein 45.7 mg/L (<10.0)
--- NOTE | 2020-01-29 12:36 | NM ---
EXAMINATION TYPE: NM bone 3 phase DATE OF EXAM: 01/29/2020 COMPARISON: Plain film 01/26/2020 HISTORY: Pain Triple phase bone scintigraphy was performed following the injection of 22.3 mCi Tc 99m MDP. Immedia te images and 3.5 hours post injection images acquired. FINDINGS: Limited scanning of the knees. Increased blood flow, blood pool, delayed imaging present about the patient's left knee arthroplasty change. Abnormal increased uptake present in the distal femur and proximal tibia. Extensive hyperemia , soft tissue increased radio pharmaceutical uptake also present. Photopenic defect incidentally noted within the right knee consistent with post arthroplasty change. IMPRESSION: Correlate for loosening, infection of patient's left knee arthroplasty.
[2020-01-29 18:13] LABS: Rheumatoid Factor, Qnt <4 IU/mL (0-15)
[2020-01-30 19:41] LABS: HLA B27 NEGATIVE
== END | disposition home or self-care (01) ==
LOC: RADNMMAIN 07:18
PROVIDERS: ATTEND Orthopaedic Surgery
DX: T84.84XD Pain due to internal orthopedic prosthetic devices, implants and grafts, subsequent encounter (principal); Z96.652 Presence of left artificial knee joint; Z88.2 Allergy status to sulfonamides
CPT/HCPCS: 86812; 85652; 86140; 86431; 86038; 86039; 78315; A9503

== ENCOUNTER → 2020-03-17 | Outpatient (CLI) | payer MEDICARE, BC | END | disposition home or self-care (01) | LOC: LABWHC1 10:04 | PROVIDERS: ATTEND Orthopaedic Surgery Adult Reconstructive Orthopaedic Surgery | DX: Z01.818 Encounter for other preprocedural examination (principal) | CPT/HCPCS: 36415; 93005 ==

== ENCOUNTER → 2020-03-23 | Outpatient (CLI) | payer BC ==
[~2020-03-23] MED LIST changes: -ACETAMINOPHEN TAB 500 MG TAB PO ONE; -HYDROmorphone 0.5 MG/0.5 ML SYRINGE IVP PRN; -LIDOCAINE 1% 20 ML VIAL (10MG/ML) FOR IV START INTRADERMA PRN; -MELOXICAM 7.5 MG TAB PO ONE; -ONDANSETRON 4 MG/2 ML VIAL IVP ONE; +REGADENOSON 0.4 MG/5 ML SYRINGE IV ONE; -TRANEXAMIC ACID 1,000 MG in SODIUM CHLORIDE 0.9% 50 ML IVPB ONE; -ceFAZolin IN SWFI 2 GM/20 ML SYRINGE IVP ONE
--- NOTE | 2020-03-23 12:32 | P.STRESS ---
- Stress Test Note Stress Test Results/Findings: Exam Performed: NM stress lexiscan cardiolite Exam Date: 03/23/20 Reason for Exam: ABNORMAL EKG Height: 5 ft 1 in Weight: 82.554 kg Protocol: LEXISCAN Stage: NA Duration of Exercise: NA Resting Heart Rate: 76 Resting Blood Pressure: 133/84 Maximum Achieved Heart Rate: 94 Maximum Achieved Blood Pressure: 135/77 85% PMHR: 122 100% PMHR: 143 METS: NA Technologist Comment: Stress Test Results/Findings: Baseline heart rate 76 beats a minute, Baseline blood pressure 133/84 mmHg Baseline 12-lead ECG shows sinus rhythm with a right bundle branch block pattern Patient received Lexiscan infusion per protocol Mild increase in heart rate. No significant change in blood pressure No ECG evidence for ischemia New people should be reported separately
--- NOTE | 2020-03-23 13:42 | NM ---
EXAMINATION TYPE: NM stress lexiscan cardiolite DATE OF EXAM: 03/23/2020 COMPARISON: Prior exam 01/09/2016 HISTORY: Abnormal EKG, Z 87.74, R 94.31 TECHNIQUE: After the intravenous administration of 9.8 mCi Tc 99m Sestamibi - Cardiolite resting SPE CT images acquired 45 minutes post injection. The patient received 0.4mg Lexiscan, 24.2 mCi Tc 99m Sestamibi - Stress images obtained [address] injection FINDINGS: Review of stress and rest SPECT images demonstrates decreased uptake along the cardiac apex on stress as compared to rest images. Gated analysis shows normal wall motion with an estimated left ventricu lar ejection fraction of 62 %. IMPRESSION: Pharmacologically induced left ventricular myocardial ischemia A Yellow level critical message alert has been initiated for Susannah Holley MD via the [employer] Critical Results System on 03/23/2020 1:40 PM. This message alert has been sent to Susannah Hodge MD via the preferences provided by the clinician for the receipt of Radiology Critical Findings . Message ID [id number].
== END | disposition home or self-care (01) ==
LOC: RADNMMAIN 08:15
PROVIDERS: ATTEND Family Medicine
DX: Z01.818 Encounter for other preprocedural examination (principal); I25.9 Chronic ischemic heart disease, unspecified; Z87.74 Personal history of (corrected) congenital malformations of heart and circulatory system
CPT/HCPCS: 93017; 78452; A9500; J2785

== ENCOUNTER → 2021-01-03 | Outpatient (CLI) | payer BC ==
--- NOTE | 2021-01-03 10:03 | BD ---
EXAMINATION TYPE: Axial Bone Density DATE OF EXAM: 01/03/2021 COMPARISON: 12.04.2018 CLINICAL HISTORY: 80 YR FEMALE.....ICD-10 CODE: Z78.0 DISORDER OF BD Height: 60 Weight: 180 FRAX RISK QUESTIONS: Family History (Parent hip fracture): YES History of Fracture in Adulthood: YES 3. Menopause before 45: AT 47 RISK FACTORS HISTORY OF: YES, LT ANKLE AN ADULT Family History of Osteoporosis: YES, MOTHER WITH HIP FX Active: NO IN LT LEG BRACE AND USING CANE Diet low in dairy products/other sources of calcium: YES Postmenopausal woman: YES, AT 47 YRS OLD HORMONES IN THE PAST FOR 5-10 YRS Lost more than 2 inches in height since high school: YES Frequent falls: USING CANE AND LEG BRACE, UNSTEADY Poor Health: ELDERLY Hyperparathyroidism: NO Adrenal Insufficiency: NO MEDICATIONS: Additional Medications: BP MEDS, VIT D AND CALCIUM, CELEBREX, Additional History: BILAT TKR, LT TSR, ARTHRITIS, EXAM MEASUREMENTS: Bone mineral densitometry was performed using the [employer] System. Bone mineral density as measured about the Lumbar spine is: ----- L1-L4(G/cm2): 1.201 T Score Values are as follows: ----- L1: 0.3 ----- L2: -0.1 ----- L3: -0.4 ----- L4: 0.8 ----- L1-L4: 0.2 Bone mineral density has: Decreased -12.4% since study of: 12.04.2018 Bone mineral density about the R hip (g/cm2): 0.866 Bone mineral density about the L hip (g/cm2): 0.772 T Score values are as follows: -----R Neck: -0.9 -----L Neck: -1.8 -----R Total: -1.1 -----L Total: -1.9 Bone mineral density has: Decreased -10.9% since study of: 12.04.2018 FRAX%S: THERE IS A 31.7% CHANCE FOR A MAJOR OSTEOPOROTIC FX AND A 17.8% FOR HIP......PROBABILITY F OR FX IN 10 YRS TIME IMPRESSION: Osteopenia (T Score between -2.5 and -1). There is slightly increased risk of fracture and the patient may be considered for treatment. Re-Screen 2-5 years. NOTE: T-SCORE=SD OF THE YOUNG ADULT MEAN.
--- NOTE | 2021-01-04 10:42 | MM ---
Reason for exam: screening (asymptomatic). Last mammogram was performed 2 years and 1 month ago. History: Patient is postmenopausal. Took hormonal contraceptives for 10 years. Took estrogen beginning at age 47. Physical Findings: A clinical breast exam by your physician is recommended on an annual basis and results should be correlated with mammographic findings. MG 3D Screening Mammo W/Cad Bilateral CC and MLO view(s) were taken. Prior study comparison: December 04, 2018, bilateral MG 3d screening mammo w/cad. November 05, 2016, bilateral MG 3d screening mammo w/cad. The breast tissue is heterogeneously dense. This may lower the sensitivity of mammography. Stable vascular calcifications. There is no discrete abnormality. No significant changes when compared with prior studies. ASSESSMENT: Benign, BI-RAD 2 RECOMMENDATION: Routine screening mammogram of both breasts in 1 year.
== END | disposition home or self-care (01) ==
LOC: RADMAMWWP 08:26
PROVIDERS: ATTEND Family Medicine
DX: Z12.31 Encounter for screening mammogram for malignant neoplasm of breast (principal); Z78.0 Asymptomatic menopausal state; Z13.820 Encounter for screening for osteoporosis; M85.80 Other specified disorders of bone density and structure, unspecified site
CPT/HCPCS: 77063; 77067; 77080

== ENCOUNTER 2022-05-19 00:05 | Emergency (ER) | payer BC, MEDICARE ==
[2022-05-19] MEDS ORDERED: TOPICAL SKIN ADHESIVE 1 EACH AMP TOPICAL ONE (01:34)
--- NOTE | 2022-05-19 01:39 | CT ---
EXAMINATION TYPE: CT brain aidee clark DATE OF EXAM: 05/19/2022 COMPARISON: 08/05/2018 CT brain HISTORY: FALL ON ELOQUIS WITH HEAD INJURY. LT EYEBROW CONTUSION. CT DLP: mGycm Automated exposure control for dose reduction was used. There is cerebral cortical atrophy. There is no mass effect or midline shift. No evidence of intracra nial hemorrhage. There is patchy areas of hypodensity in the periventricular white matter. Sella turc ica is normal. Calvarium is intact. The skull base is intact. There is some straightening of the cervical spine. There is degenerative subluxation at C3-4. Movemen t is 3 mm. There is moderate narrowing of disc spaces at levels from C3 to T1. No compression fractur e. No focal bone destruction. There is multilevel mild hypertrophic cervical facet arthropathy. IMPRESSION: Cerebral atrophy. No acute intracranial abnormality. Mild chronic small vessel ischemia. No adverse c hange. Multilevel cervical moderate spondylotic changes. No fracture.
--- NOTE | 2022-05-19 01:47 | ED ---
Fall HPI - General Chief Complaint: Wound/Laceration Stated Complaint: fell cut above L eye Time Seen by Provider: 05/19/22 00:40 Source: patient, RN notes reviewed Mode of arrival: ambulatory - History of Present Illness Initial Comments: This is an 82-year-old female who presents to the emergency department for a fall. States that she was leaving a restaurant, when her cane got caught on a rug. She subsequently fell face forward and hit her head. She is not on any blood thinners and she denies any loss of consciousness. She has an injury to the left eyebrow. States that it has been bleeding on and off which was her largest concern. Her tetanus status is up-to-date. Denies any significant pain at this time. Denies any fevers, chills, sore throat, cough, dyspnea, chest pain, palpitations, abdominal pain, nausea, vomiting, diarrhea, or back pain. MD Complaint: fall Fall Witnessed: yes, by family Loss of Consciousness: none Prolonged Down Time?: no Symptoms Prior to Fall: none Location: face - Related Data Home Medications Medication Instructions Recorded Confirmed Ascorbic Acid [Vitamin C] 1,000 mg PO DAILY 01/04/15 08/05/18 Multivitamins, Thera [Multivitamin 1 tab PO DAILY 01/04/15 08/05/18 (formulary)] Cholecalciferol [Vitamin D3 (25 5,000 unit PO DAILY 01/09/16 08/05/18 Mcg = 1000 Iu)] Mirabegron [Myrbetriq] 50 mg PO DAILY 02/11/17 08/05/18 Aspirin [Adult Low Dose Aspirin EC] 81 mg PO DAILY 03/28/18 08/05/18 Celecoxib [CeleBREX] 200 mg PO BID 03/28/18 08/05/18 Losartan/Hydrochlorothiazide 1 tab PO QAM 03/28/18 08/05/18 [Hyzaar 100-25 Tablet] Calcium Carbonate/Vitamin D3 1 cap PO DAILY 08/05/18 08/05/18 [Calcium 600-Vit D3 12.5 Mcg (500 Iu)] Allergies Allergy/AdvReac Type Severity Reaction Status Date / Time Sulfa (Sulfonamide AdvReac migraine Verified 05/19/22 00:33 Antibiotics) Review of Systems ROS Statement: Those systems with pertinent positive or pertinent negative responses have been documented in the HPI. ROS Other: All systems not noted in ROS Statement are negative. Past Medical History Past Medical History: CVA/TIA, Hearing Disorder / Deafness, Hypertension, Osteoarthritis (OA) Additional Past Medical History / Comment(s): HX OF HOLE IN HEART WITH SURGICAL REPAIR., MIGRAINES, SCOLIOSIS, IMMOBILIZER LEFT KNEE., hx TIA-no effects, constipation, History of Any Multi-Drug Resistant Organisms: None Reported Past Surgical History: Section, Cholecystectomy, Hysterectomy, Joint Replacement, Orthopedic Surgery Additional Past Surgical History / Comment(s): PVO CLOSURE (2006)., LEFT SHOULDER REPLACEMENT, RIGHT KNEE replacement, RT FOOT BUNION , LASIK EYE SURGERY, TOTAL LEFT KNEE (11/04/17), LEFT KNEE TENDON REPAIR (11/18/17 and 12/23/17). Past Anesthesia/Blood Transfusion Reactions: Family History of Problems w/ Anesthesia, Postoperative Nausea & Vomiting (PONV) Additional Past Anesthesia/Blood Transfusion Reaction / Comment(s): son and daughter severe PONV Past Psychological History: No Psychological Hx Reported Smoking Status: Never smoker Past Alcohol Use History: Occasional Past Drug Use History: None Reported - Past Family History Mother Family Medical History: Dementia, Diabetes Mellitus Father Family Medical History: Cancer Additional Family Medical History / Comment(s): NON-HODGKINS LYMPHOMA General Exam Limitations: no limitations General appearance: alert, in no apparent distress Head exam: Present: other (2 cm laceration on the lateral aspect of the left eyebrow. Surrounding dried blood but no active bleeding.) Eye exam: Present: other (Right periorbital ecchymosis) Neck exam: Present: normal inspection. Absent: tenderness, meningismus, lymphadenopathy Respiratory exam: Present: normal lung sounds bilaterally. Absent: respiratory distress, wheezes, rales, rhonchi, stridor Cardiovascular Exam: Present: regular rate, normal rhythm, normal heart sounds. Absent: systolic murmur, diastolic murmur, rubs, gallop, clicks Neurological exam: Present: alert, oriented X3, CN II-XII intact Psychiatric exam: Present: normal affect, normal mood Course Vital Signs 05/19/22 05/19/22 00:33 02:31 Pulse Rate 96 95 Respiratory 16 18 Rate Blood Pressure 174/86 136/91 O2 Sat by Pulse 98 98 Oximetry Procedures - Laceration Laceration #1 Consent Obtained: verbal consent Indication: laceration Site: face Size (cm): 2 Description: linear Depth: simple, single layer Type of Sutures: other (Exofin) Medical Decision Making - Medical Decision Making This is an 82-year-old female who presents emergency department for a fall. Was pt. sent in by a medical professional or institution? @ -No Did you speak to anyone other than the patient for history? @ -Her Did you review nursing and triage notes? @ -Agree, accurate with regards to the patient's symptoms. Were old charts reviewed? @ -No Differential Diagnosis? @ -Not applicable CT interpreted by me (1pt min.)? @ -Computed tomography scan of the brain and C-spine obtained. My interpretation identifies no evidence of an acute intracranial hemorrhage, skull fracture, or cervical spine fracture. What testing was considered but not performed? (CT, X-rays, U/S, labs)? Why? @ -None What meds were considered but not given? Why? @ -None Did you discuss the management of the patient with other professionals? @ -No Did you reconcile home meds? @ -No Was smoking cessation discussed for >3mins.? @ -No Was critical care preformed (if so, how long)? @ -No Were there social determinants of health that impacted care today? How? (Homelessness, low income, unemployed, alcoholism, drug addiction, transportation, low edu. Level, literacy, decrease access to med. care, long term, rehab)? @ -No Was there de-escalation of care discussed even if they declined? (Discuss DNR or withdrawal of care, Hospice)? @ -No What co-morbidities impacted this encounter? (DM, HTN, Smoking, COPD, CAD, Cancer, CVA, Hep., AIDS, mental health diagnosis, sleep apnea, morbid obesity)? @ -None Was patient admitted / discharged? @ -Discharged. Computed tomography scan of the brain and C-spine obtained with my interpretation listed above. The laceration had no active bleeding when I went to evaluate the patient and was fairly superficial. This was closed with Exofin and Steri-Strips were applied on top. She is instructed to avoid picking at the site and to let the steri-strips fall off on their own. Advised ibuprofen and Tylenol as needed for pain relief. Drug Therapy requiring intensive monitoring for toxicity (Heparin, Nitro, Insulin, Cardizem)? @ -None Were any procedures done? @ -Yes, laceration repair with Exofin. Diagnosis/symptom? @ -Laceration Acute, or Chronic, or Acute on Chronic? @ -Acute Uncomplicated (without systemic symptoms) or Complicated (systemic symptoms)? @ -Uncomplicated Side effects of treatment? @ -None Exacerbation, Progression, or Severe Exacerbation] @ -Not applicable Poses a threat to life or bodily function? @ -No Diagnosis/symptom? @ -Facial contusion Acute, or Chronic, or Acute on Chronic? @ -Acute Uncomplicated (without systemic symptoms) or Complicated (systemic symptoms)? @ -Uncomplicated Side effects of treatment? @ -None Exacerbation, Progression, or Severe Exacerbation] @ -Not applicable Poses a threat to life or bodily function? @ -No Return precautions reviewed in depth, the patient is instructed to return to the emergency department with any new, worsening, or concerning symptoms. Patient verbalized understanding. This case was discussed in detail with the attending ED physician. Presentation, findings, and treatment plan discussed in detail as well. - Radiology Data Radiology results: report reviewed, image reviewed Disposition Clinical Impression: Laceration, Fall, Contusion of face Disposition: HOME SELF-CARE Instructions (If sedation given, give patient instructions): Fall Prevention for Older Adults (ED), Skin Adhesive Care (ED) Additional Instructions: Return to the emergency department with any new, worsening, or concerning symptoms. Alternate with ibuprofen and Tylenol as needed for pain relief. Keep the area dry, do not apply topical medications, and do not rub, scratch, or pick at the wound. The adhesive will naturally fall off within 5-10 days. Follow up with your primary care provider in 1-2 days. Is patient prescribed a controlled substance at d/c from ED?: No Referrals: Susannah Holley MD [Primary Care Provider] - 1-2 days
[2022-05-19 02:33] VITALS: BP 136/91; PULSE 95; RESP 18
== END 2022-05-19 02:31 | disposition home or self-care (01) ==
LOC: EC 00:05
DX: S05.32XA Ocular laceration without prolapse or loss of intraocular tissue, left eye, initial encounter (principal); I10 Essential (primary) hypertension; G45.9 Transient cerebral ischemic attack, unspecified; M19.90 Unspecified osteoarthritis, unspecified site; Z79.82 Long term (current) use of aspirin; Z79.899 Other long term (current) drug therapy; Z88.2 Allergy status to sulfonamides; W26.9XXA Contact with unspecified sharp object(s), initial encounter; Y92.009 Unspecified place in unspecified non-institutional (private) residence as the place of occurrence of the external cause
CPT/HCPCS: 12011; 70450; 72125; 99283

== ENCOUNTER → 2023-01-07 | Outpatient (CLI) | payer BC ==
--- NOTE | 2023-01-08 10:45 | MM ---
Reason for Exam: Screening (asymptomatic). Last screening mammogram was performed 12 month(s) ago. Patient History: Menarche at age 14. First Full-Term at age 25. Left ovary removed at age 47. Right ovary removed at age 47. Hysterectomy at age 47. Postmenopausal. Estrogen, from age 47 until age 67. Patient used Hormonal Contraceptives for 10 years. Paternal cousin had breast cancer. Niece had breast cancer. Risk Values: Vandana 5 year model risk: 1.5%. NCI Lifetime model risk: 2.3%. Prior Study Comparison: 12/04/2018 Bilateral Screening Mammogram, [facility]. 01/03/2021 Bilateral Screening Mammogram, [facility]. 01/04/2022 Bilateral MG 3D screening mammo w/cad, [facility]. Tissue Density: The breast tissue is heterogeneously dense. This may lower the sensitivity of mammography. Findings: Analyzed By CAD. Nodular distortion upper outer right breast 9 cm from the nipple. No suspicious calcifications seen in either breast. Benign vascular and punctate calcifications noted. Overall Assessment: Incomplete: need additional imaging evaluation, BI-RAD 0 Management: Diagnostic Mammogram of the right breast. . Patient should continue monthly self-breast exams. A clinical breast exam by your physician is recommended on an annual basis. This exam should not preclude additional follow-up of suspicious palpable abnormalities. Note on Vandana scores and lifetime risk: 1. A Vandana score greater than 3% is considered moderate risk. If this is the case, consider specialist referral to assess eligibility for a risk reducing agent. 2. If overall lifetime risk for the development of breast cancer is 20% or higher, the patient may qualify for future screening with alternating mammogram and breast MRI. Electronically signed and approved by: Derrell Chang M.D. Radiologis
== END | disposition home or self-care (01) ==
LOC: RADMAMWWP 12:19
PROVIDERS: ATTEND Family Medicine
DX: Z12.31 Encounter for screening mammogram for malignant neoplasm of breast (principal); Z78.0 Asymptomatic menopausal state; Z80.3 Family history of malignant neoplasm of breast
CPT/HCPCS: 77063; 77067

== ENCOUNTER → 2023-01-09 | Outpatient (CLI) | payer BC ==
--- NOTE | 2023-01-09 11:52 | MM ---
Reason for Exam: Additional evaluation requested from abnormal screening. Last screening mammogram was performed less than 1 month ago. Patient History: Menarche at age 14. First Full-Term at age 25. Left ovary removed at age 47. Right ovary removed at age 47. Hysterectomy at age 47. Postmenopausal. Estrogen, from age 47 until age 67. Patient used Hormonal Contraceptives for 10 years. Paternal cousin had breast cancer. Niece had breast cancer. Risk Values: Vandana 5 year model risk: 1.5%. NCI Lifetime model risk: 2.3%. Prior Study Comparison: 01/04/2022 Bilateral MG 3D screening mammo w/cad, [facility]. 01/07/2023 Bilateral MG 3D screening mammo w/cad, [facility]. Tissue Density: Right: The breast tissue is heterogeneously dense. This may lower the sensitivity of mammography. Findings: Analyzed By CAD. Asymmetric density posterior lateral right breast does not appear to persist on the tomographic views. Superimposition shadow is suggested. Precautionary 6 month follow-up recommended. Benign vascular calcifications noted. Overall Assessment: Probably benign, BI-RAD 3 Management: Diagnostic Mammogram of the right breast in 6 months. Results were given to the patient verbally at the time of exam. Patient should continue monthly self-breast exams. A clinical breast exam by your physician is recommended on an annual basis. This exam should not preclude additional follow-up of suspicious palpable abnormalities. Note on Vandana scores and lifetime risk: 1. A Vandana score greater than 3% is considered moderate risk. If this is the case, consider specialist referral to assess eligibility for a risk reducing agent. 2. If overall lifetime risk for the development of breast cancer is 20% or higher, the patient may qualify for future screening with alternating mammogram and breast MRI. Electronically signed and approved by: Carissa Urbina M.D. Radiologist
== END | disposition home or self-care (01) ==
LOC: RADMAMWWP 10:07
PROVIDERS: ATTEND Family Medicine
DX: R92.8 Other abnormal and inconclusive findings on diagnostic imaging of breast (principal); Z78.0 Asymptomatic menopausal state; Z80.3 Family history of malignant neoplasm of breast
CPT/HCPCS: 77061; 77065

== ENCOUNTER → 2023-07-29 | Outpatient (CLI) | payer MEDICARE, BC ==
--- NOTE | 2023-07-30 09:23 | CT ---
EXAMINATION TYPE: CT shoulder RT wo con CT DLP: 319.4 mGycm, Automated exposure control for dose reduction was used. DATE OF EXAM: 07/29/2023 12:03 PM COMPARISON: . Extremity radiograph same day. CLINICAL INDICATION:Female, 83 years old with history of M75.121 COMPLETE ROTA TR-CUFF TEAR/RU PTR OF R SHOULD; PHH, right shoulder pain TECHNIQUE: Axial images were obtained of the CT shoulder RT wo con, Additional coronal and sagittal r eformatted images and soft tissue and bone window were obtained for review. 3-D reconstruction was cr eated on a separate workstation. Contrast used: mL of , (None if empty) Oral contrast used: (None if empty) FINDINGS: The humeral head is subluxed superiorly relative to the glenoid process. Marked cartilage loss is seen at the glenohumeral joint. There is marked cartilage loss and humeral joint and periarticular osteophytes are present. Subchondr al sclerosis and tiny geodes is seen on both sides of the joint. Atrophy of supraspinatus muscle. No significant soft tissue swelling or joint effusion is identified. No radiopaque foreign body milton ntified. No fracture, displacement or angulation. The 3-D images confirm the 2D findings. IMPRESSION: Severe osteoarthritis of the shoulder.
== END | disposition home or self-care (01) ==
LOC: RADCTMAIN 11:38
PROVIDERS: ATTEND Orthopaedic Surgery Sports Medicine
DX: M19.011 Primary osteoarthritis, right shoulder (principal)

== ENCOUNTER → 2023-09-04 | Outpatient (CLI) | payer MEDICARE, BC ==
[2023-09-04 11:46] LABS: INR 0.9 (<1.2); Partial Thromboplastin Time 24.6 sec (22.0-30.0); Prothrombin Time 10.4 sec (10.0-12.5)
[2023-09-04 15:02] LABS: HCT 43.9 % (37.2-46.3); HGB 14.4 g/dL (12.0-15.0); MCH 31.9 pg (27.0-32.0); MCHC 32.8 g/dL (32.0-37.0); MCV 97.3 FL (80.0-97.0); Mean Platelet Volume 9.3 FL (9.5-12.2); NRBC Per 100 WBC 0 X 10*3/uL (0.00-0.01); Platelet Count 237 X 10*3/uL (140-440); RBC 4.51 X 10*6/uL (4.10-5.20); RDW 12.8 % (11.5-14.5); WBC 5.46 X 10*3/uL (4.50-10.00)
[2023-09-04 19:10] LABS: ALT 12 U/L (8-44); AST 17 U/L (13-35); Albumin 4.5 g/dL (3.8-4.9); Albumin/Globulin Ratio 1.73 Ratio (1.60-3.17); Alkaline Phosphatase 68 U/L (41-126); BUN/Creat Ratio 46.86 Ratio (12.00-20.00); Blood Urea Nitrogen 32.8 mg/dL (9.0-27.0); Calcium 9.7 mg/dL (8.7-10.3); Carbon Dioxide 24.3 mmol/L (21.6-31.8); Chloride 98 mmol/L (96-109); Globulin 2.6 g/dL (1.6-3.3); Glucose 138 mg/dL (70-110); Potassium 3.8 mmol/L (3.5-5.5); Sodium 139 mmol/L (135-145); Total Bilirubin 0.4 mg/dL (0.3-1.2); Total Protein 7.1 g/dL (6.2-8.2)
== END | disposition home or self-care (01) ==
LOC: LABPAT 10:01
PROVIDERS: ATTEND Orthopaedic Surgery Sports Medicine
DX: Z01.812 Encounter for preprocedural laboratory examination (principal); Z22.322 Carrier or suspected carrier of Methicillin resistant Staphylococcus aureus
CPT/HCPCS: 36415; 80053; 85027; 85610; 85730; 87070; 93005

== ENCOUNTER 2023-09-10 10:37 | Emergency (ER) | payer MEDICARE, BC ==
[2023-09-10 11:07] VITALS: RESP 18
[2023-09-10] MEDS: KETOROLAC 15 MG/ML 1 ML VIAL IVP STA (11:36)
[2023-09-10] MEDS: SODIUM CHLORIDE 0.9% 1,000 ML IV STA (11:37)
[2023-09-10 11:51] LABS: Basophils % (A) 1 %; Eosinophils # (A) 0.1 k/uL (0-0.7); Eosinophils % (A) 2 %; HCT 42.4 % (34.0-46.0); HGB 13.6 gm/dL (11.4-16.0); Lymphocytes # (A) 0.9 k/uL (1.0-4.8); Lymphocytes % (A) 19 %; MCHC 32.1 g/dL (31.0-37.0); MCV 96.5 fL (80.0-100.0); Mean Platelet Volume 7.6; Monocytes # (A) 0.3 k/uL (0-1.0); Monocytes % (A) 7 %; Neutrophils # (A) 3.1 k/uL (1.3-7.7); Neutrophils % (A) 67 %; Platelet Count 230 k/uL (150-450); RDW 12.8 % (11.5-15.5); WBC 4.7 k/uL (3.8-10.6)
[2023-09-10 11:59] LABS: ALT 13 U/L (4-34); AST 21 U/L (14-36); African American GFR (CKD) >90 (>60 ml/min/1.73 sqM); Albumin 3.8 g/dL (3.5-5.0); Alkaline Phosphatase 75 U/L (38-126); Anion Gap 4 mmol/L; Blood Urea Nitrogen 26 mg/dL (7-17); Calcium 8.9 mg/dL (8.4-10.2); Carbon Dioxide 29 mmol/L (22-30); Chloride 103 mmol/L (98-107); Glucose 105 mg/dL (74-99); Lipase 82 U/L (23-300); Non-African American GFR(CKD) >90 (>60 ml/min/1.73 sqM); Potassium 3.5 mmol/L (3.5-5.1); Sodium 136 mmol/L (137-145); Total Bilirubin 0.6 mg/dL (0.2-1.3); Total Protein 6.4 g/dL (6.3-8.2)
--- NOTE | 2023-09-10 12:03 | CT ---
EXAMINATION TYPE: CT abdomen pelvis wo con CT DLP: 1120 mGycm, Automated exposure control for dose reduction was used. DATE OF EXAM: 09/10/2023 11:34 AM COMPARISON: 12/31/2015 CLINICAL INDICATION:Female, 83 years old with history of left flank pain; flank pain TECHNIQUE: Axial CT abdomen pelvis wo con;Sagittal and coronal reformats were created on a separate workstation. Contrast used: mL of , (none if empty) Oral contrast used: without Oral Contrast (none if empty) FINDINGS: LOWER CHEST: Postsurgical changes in the heart. ABDOMEN LIVER: Unremarkable GALLBLADDER AND BILE DUCTS: Gallbladder surgically absent. PANCREAS: Unremarkable. SPLEEN: Unremarkable. ADRENAL GLANDS: Unremarkable. KIDNEYS AND URETERS: No evidence of hydronephrosis or renal calculus. The ureters are unremarkable. Right renal cortical cysts. Multiple calcifications are seen along the right gonadal veins near the r ight ureter. PELVIS BLADDER: Unremarkable REPRODUCTIVE: The uterus is surgically absent. ABDOMEN & PELVIS STOMACH AND BOWEL: Diverticula posterior to the cecum with mild Fat stranding changes . No evidence o f bowel obstruction. The appendix is normal. No organizing fluid collection or mass. PERITONEUM/RETROPERITONEUM: No evidence of pneumoperitoneum or free fluid. VASCULATURE: No evidence of aortic aneurysm. MUSCULOSKELETAL: No acute osseous abnormalities. Moderate disc degeneration changes are present throu ghout the thoracolumbar spine. Scoliosis changes of the spine with grade 1 anterolisthesis of L4 on L 5 and L3 on L4. LYMPH NODES: No gross evidence for lymphadenopathy. SOFT TISSUE/ABDOMINAL WALL: Unremarkable IMPRESSION: 1. Mild cecal diverticulitis without organizing fluid collection or mass. 2. No evidence for obstructive uropathy or renal calculus. The appendix is normal. 3. Colonic diverticulosis.
--- NOTE | 2023-09-10 12:21 | ED ---
General Adult HPI - General Chief complaint: Back Pain/Injury Stated complaint: Flank Pain Time Seen by Provider: 09/10/23 10:44 Source: patient, family, EMS, RN notes reviewed Mode of arrival: EMS Limitations: no limitations - History of Present Illness Initial comments: 83-year-old female presents emergency department chief complaint of left-sided abdominal, flank pain. Patient states it started last few days. Patient states she initially just thought she pulled a muscle in her back but states she does have some pain at rest she denies any bowel, bladder incontinence retention no saddle anesthesias no lower extremity paresthesias. She states she has no dysuria she does have some light or loose stools. Patient states that she has no melena or hematochezia. Denies fever. - Related Data Home Medications Medication Instructions Recorded Confirmed Ascorbic Acid [Vitamin C] 1,000 mg PO DAILY 01/04/15 08/05/18 Multivitamins, Thera [Multivitamin 1 tab PO DAILY 01/04/15 08/05/18 (formulary)] Cholecalciferol [Vitamin D3 (25 5,000 unit PO DAILY 01/09/16 08/05/18 Mcg = 1000 Iu)] Mirabegron [Myrbetriq] 50 mg PO DAILY 02/11/17 08/05/18 Aspirin [Adult Low Dose Aspirin EC] 81 mg PO DAILY 03/28/18 08/05/18 Celecoxib [CeleBREX] 200 mg PO BID 03/28/18 08/05/18 Losartan/Hydrochlorothiazide 1 tab PO QAM 03/28/18 08/05/18 [Hyzaar 100-25 Tablet] Calcium Carbonate/Vitamin D3 1 cap PO DAILY 08/05/18 08/05/18 [Calcium 600-Vit D3 12.5 Mcg (500 Iu)] Previous Rx's Medication Instructions Recorded Amoxic-Pot Clav 875-125Mg 1 tab PO Q12HR #20 tab 09/10/23 [Augmentin 875-125] Allergies Allergy/AdvReac Type Severity Reaction Status Date / Time Sulfa (Sulfonamide AdvReac migraine Verified 09/10/23 10:48 Antibiotics) Review of Systems ROS Statement: Those systems with pertinent positive or pertinent negative responses have been documented in the HPI. ROS Other: All systems not noted in ROS Statement are negative. Past Medical History Past Medical History: CVA/TIA, Hearing Disorder / Deafness, Hypertension, Osteoarthritis (OA) Additional Past Medical History / Comment(s): HX OF HOLE IN HEART WITH SURGICAL REPAIR., MIGRAINES, SCOLIOSIS, IMMOBILIZER LEFT KNEE., hx TIA-no effects, constipation, History of Any Multi-Drug Resistant Organisms: None Reported Past Surgical History: Section, Cholecystectomy, Hysterectomy, Joint Replacement, Orthopedic Surgery Additional Past Surgical History / Comment(s): PVO CLOSURE (2006)., LEFT SHOULDER REPLACEMENT, RIGHT KNEE replacement, RT FOOT BUNION , LASIK EYE SURGERY, TOTAL LEFT KNEE (11/04/17), LEFT KNEE TENDON REPAIR (11/18/17 and ). Past Anesthesia/Blood Transfusion Reactions: Family History of Problems w/ Anesthesia, Postoperative Nausea & Vomiting (PONV) Additional Past Anesthesia/Blood Transfusion Reaction / Comment(s): son and daughter severe PONV Past Psychological History: No Psychological Hx Reported Smoking Status: Never smoker Past Alcohol Use History: Occasional Past Drug Use History: None Reported - Past Family History Mother Family Medical History: Dementia, Diabetes Mellitus Father Family Medical History: Cancer Additional Family Medical History / Comment(s): NON-HODGKINS LYMPHOMA General Exam Limitations: no limitations General appearance: alert, in no apparent distress Head exam: Present: atraumatic, normocephalic, normal inspection Neck exam: Present: normal inspection. Absent: tenderness, meningismus, lymphadenopathy Respiratory exam: Present: normal lung sounds bilaterally. Absent: respiratory distress, wheezes, rales, rhonchi, stridor Cardiovascular Exam: Present: regular rate, normal rhythm, normal heart sounds. Absent: systolic murmur, diastolic murmur, rubs, gallop, clicks GI/Abdominal exam: Present: soft, tenderness (Mild left-sided), normal bowel sounds. Absent: distended, guarding, rebound, rigid Back exam: Present: CVA tenderness (L). Absent: CVA tenderness (R) Neurological exam: Present: alert, reflexes normal. Absent: motor sensory deficit Course Vital Signs 09/10/23 09/10/23 09/10/23 10:41 11:37 13:01 Temperature 98 F 98.5 F Pulse Rate 87 81 82 Respiratory 18 18 18 Rate Blood Pressure 184/101 147/73 163/88 O2 Sat by Pulse 97 97 98 Oximetry Medical Decision Making - Medical Decision Making Was pt. sent in by a medical professional or institution (MONA Cook, STATE EPIDEMIOLOGIST, urgent care, hospital, or fci...) When possible be specific @ -No Did you speak to anyone other than the patient for history (EMS, parent, family, police, friend...)? What history was obtained from this source @ -No Did you review nursing and triage notes (agree or disagree)? Why? @ -I reviewed and agree with nursing and triage notes Were old charts reviewed (outside hosp., previous admission, EMS record, old EKG, old radiological studies, urgent care reports/EKG's, fci records)? Report findings @ -No old charts were reviewed Differential Diagnosis (chest pain, altered mental status, abdominal pain women, abdominal pain men, vaginal bleeding, weakness, fever, dyspnea, syncope, headache, dizziness, GI bleed, back pain, seizure, CVA, palpatations, mental health, musculoskeletal)? @ -Differential Abdominal Pain Women: Appendicitis, Cholecystitis, diverticulosis, ischemic bowel, pancreatitis, hepatitis, UTI, gastroenteritis, AAA, incarcerated hernia, bowel obstruction, constipation, inflammatory bowel, hepatitis, peptic ulcer disease, splenic infarction, perforated viscus, vulvitis, ovarian torsion, PID, kidney stone, placenta abruption, this is not meant to be an all-inclusive list EKG interpreted by me (3pts min.). @ -None X-rays interpreted by me (1pt min.). @ -None done CT interpreted by me (1pt min.). @ -CT pelvis showing evidence of diverticulitis no perforation or abscess U/S interpreted by me (1pt. min.). @ -None done What testing was considered but not performed or refused? (CT, X-rays, U/S, labs)? Why? @ -None What meds were considered but not given or refused? Why? @ -None Did you discuss the management of the patient with other professionals (professionals i.e. MONA Cook, STATE EPIDEMIOLOGIST, lab, RT, psych nurse, dialysis social worker, chemical dependency professional, teacher, international first officer, case mgr)? Give summary @ -No Was smoking cessation discussed for >3mins.? @ -No Was critical care preformed (if so, how long)? @ -No Were there social determinants of health that impacted care today? How? (Homelessness, low income, unemployed, alcoholism, drug addiction, transportation, low edu. Level, literacy, decrease access to med. care, long term, rehab)? @ -No Was there de-escalation of care discussed even if they declined (Discuss DNR or withdrawal of care, Hospice)? DNR status @ -No What co-morbidities impacted this encounter? (DM, HTN, Smoking, COPD, CAD, Cancer, CVA, ARF, Chemo, Hep., AIDS, mental health diagnosis, sleep apnea, morbid obesity)? @ -None Was patient admitted / discharged? Hospital course, mention meds given and route, prescriptions, significant lab abnormalities, going to OR and other pertinent info. @ -Patient is well-appearing tolerating oral intake, vitals are stable patient has very mild diverticulitis she feels comfortable with discharge with oral antibiotics clear liquid diet and close follow-up return plans discussed family updated on results. Undiagnosed new problem with uncertain prognosis? @ -No Drug Therapy requiring intensive monitoring for toxicity (Heparin, Nitro, Insulin, Cardizem)? @ -No Were any procedures done? @ -No Diagnosis/symptom? @-Diverticulitis Acute, or Chronic, or Acute on Chronic? @ -Acute Uncomplicated (without systemic symptoms) or Complicated (systemic symptoms)? @ -Uncomplicated Side effects of treatment? @ -No Exacerbation, Progression, or Severe Exacerbation? @ -No Poses a threat to life or bodily function? How? (Chest pain, [place], [place], pneumonia, PE, COPD, DKA, ARF, appy, cholecystitis, CVA, Diverticulitis, Homicidal, Suicidal, threat to staff... and all critical care pts) @ -[Low risk diverticulitis - Lab Data Result diagrams: 09/10/23 11:21 09/10/23 11:21 Lab Results 09/10/23 09/10/23 09/10/23 Range/Units 11:21 11:21 11:21 WBC 4.7 (3.8-10.6) k/uL RBC 4.40 (3.80-5.40) m/uL Hgb 13.6 (11.4-16.0) gm/dL Hct 42.4 (34.0-46.0) % MCV 96.5 (80.0-100.0) fL MCH 31.0 (25.0-35.0) pg MCHC 32.1 (31.0-37.0) g/dL RDW 12.8 (11.5-15.5) % Plt Count 230 (150-450) k/uL MPV 7.6 Neutrophils % 67 % Lymphocytes % 19 % Monocytes % 7 % Eosinophils % 2 % Basophils % 1 % Neutrophils # 3.1 (1.3-7.7) k/uL Lymphocytes # 0.9 L (1.0-4.8) k/uL Monocytes # 0.3 (0-1.0) k/uL Eosinophils # 0.1 (0-0.7) k/uL Basophils # 0.0 (0-0.2) k/uL Sodium 136 L (137-145) mmol/L Potassium 3.5 (3.5-5.1) mmol/L Chloride 103 (98-107) mmol/L Carbon Dioxide 29 (22-30) mmol/L Anion Gap 4 mmol/L BUN 26 H (7-17) mg/dL Creatinine 0.46 L (0.52-1.04) mg/dL Est GFR (CKD-EPI)AfAm >90 (>60 ml/min/1.73 sqM) Est GFR (CKD-EPI)NonAf >90 (>60 ml/min/1.73 sqM) Glucose 105 H (74-99) mg/dL Plasma Lactic Acid Richard (0.7-2.0) mmol/L Calcium 8.9 (8.4-10.2) mg/dL Total Bilirubin 0.6 (0.2-1.3) mg/dL AST 21 (14-36) U/L ALT 13 (4-34) U/L Alkaline Phosphatase 75 (38-126) U/L Total Protein 6.4 (6.3-8.2) g/dL Albumin 3.8 (3.5-5.0) g/dL Lipase 82 (23-300) U/L Urine Color Light Yellow Urine Appearance Clear (Clear) Urine pH 6.5 (5.0-8.0) Ur Specific [place] 1.019 (1.001-1.035) Urine Protein Negative (Negative) Urine Glucose (UA) Negative (Negative) Urine Ketones Negative (Negative) Urine Blood Negative (Negative) Urine Nitrite Negative (Negative) Urine Bilirubin Negative (Negative) Urine Urobilinogen <2.0 (<2.0) mg/dL Ur Leukocyte Esterase Trace H (Negative) Urine RBC 1 (0-5) /hpf Urine WBC 1 (0-5) /hpf Ur Squamous Epith Cells 1 (0-4) /hpf Urine Mucus Rare H (None) /hpf 09/10/23 Range/Units 11:21 WBC (3.8-10.6) k/uL RBC (3.80-5.40) m/uL Hgb (11.4-16.0) gm/dL Hct (34.0-46.0) % MCV (80.0-100.0) fL MCH (25.0-35.0) pg MCHC (31.0-37.0) g/dL RDW (11.5-15.5) % Plt Count (150-450) k/uL MPV Neutrophils % % Lymphocytes % % Monocytes % % Eosinophils % % Basophils % % Neutrophils # (1.3-7.7) k/uL Lymphocytes # (1.0-4.8) k/uL Monocytes # (0-1.0) k/uL Eosinophils # (0-0.7) k/uL Basophils # (0-0.2) k/uL Sodium (137-145) mmol/L Potassium (3.5-5.1) mmol/L Chloride (98-107) mmol/L Carbon Dioxide (22-30) mmol/L Anion Gap mmol/L BUN (7-17) mg/dL Creatinine (0.52-1.04) mg/dL Est GFR (CKD-EPI)AfAm (>60 ml/min/1.73 sqM) Est GFR (CKD-EPI)NonAf (>60 ml/min/1.73 sqM) Glucose (74-99) mg/dL Plasma Lactic Acid Richard 1.3 (0.7-2.0) mmol/L Calcium (8.4-10.2) mg/dL Total Bilirubin (0.2-1.3) mg/dL AST (14-36) U/L ALT (4-34) U/L Alkaline Phosphatase (38-126) U/L Total Protein (6.3-8.2) g/dL Albumin (3.5-5.0) g/dL Lipase (23-300) U/L Urine Color Urine Appearance (Clear) Urine pH (5.0-8.0) Ur Specific [place] (1.001-1.035) Urine Protein (Negative) Urine Glucose (UA) (Negative) Urine Ketones (Negative) Urine Blood (Negative) Urine Nitrite (Negative) Urine Bilirubin (Negative) Urine Urobilinogen (<2.0) mg/dL Ur Leukocyte Esterase (Negative) Urine RBC (0-5) /hpf Urine WBC (0-5) /hpf Ur Squamous Epith Cells (0-4) /hpf Urine Mucus (None) /hpf Disposition Clinical Impression: Diverticulitis Disposition: HOME SELF-CARE Condition: Stable Instructions (If sedation given, give patient instructions): Diverticulitis (ED), Diverticulitis Diet (ED) Additional Instructions: Please return to the Emergency Department if symptoms worsen or any other concerns. Prescriptions: Amoxic-Pot Clav 875-125Mg [Augmentin 875-125] 1 tab PO Q12HR #20 tab Is patient prescribed a controlled substance at d/c from ED?: No Referrals: Susannah Holley MD [Primary Care Provider] - 1-2 days Dede Keith MD [STAFF PHYSICIAN] - 1-2 days Shaan Bacon MD [STAFF PHYSICIAN] - 1-2 days Time of Disposition: 12:21
[2023-09-10] MEDS: ACET/COD 300 MG/30 MG STARTER PACK 6 TAB BTL PO STA (12:43)
[2023-09-10] MEDS: HYDROmorphone 0.5 MG/0.5 ML SYRINGE IVP STA (12:44)
[2023-09-10] MEDS: cefTRIAXone IN SWFI 1,000 MG/10 ML SYRINGE IVP STA (12:45)
[2023-09-10] MEDS: ONDANSETRON 4 MG/2 ML VIAL IVP STA (12:54)
[2023-09-10 13:14] LABS: Appearance,Urine Clear (Clear); Bilirubin,Urine Negative (Negative); Blood,Urine Negative (Negative); Color,Urine Light Yellow; Glucose,Urine (UA) Negative (Negative); Ketones,Urine Negative (Negative); Leukocyte Esterase,Urine Trace (Negative); Mucus,Urine Rare /hpf; Nitrite,Urine Negative (Negative); PH, Urine 6.5 (5.0-8.0); Protein,Urine Negative (Negative); RBC,Urine 1 /hpf (0-5); Specific Gravity,Urine 1.019 (1.001-1.035); Squamous Epithelial Cell,Urine 1 /hpf (0-4); Urobilinogen,Urine <2.0 mg/dL (<2.0); WBC,Urine 1 /hpf (0-5)
[2023-09-10 13:18] VITALS: BP 163/88; PULSE 82; TEMP 98.5
== END 2023-09-10 13:06 | disposition home or self-care (01) ==
LOC: EC 10:37
DX: K57.32 Diverticulitis of large intestine without perforation or abscess without bleeding (principal); Z88.2 Allergy status to sulfonamides; Z86.73 Personal history of transient ischemic attack (TIA), and cerebral infarction without residual deficits
CPT/HCPCS: 36415; 80053; 83605; 83690; 85025; 81001; 74176; 99284; 96374; 96375 ×2; 96361 ×2; J0696; J1885; J1170

== ENCOUNTER 2023-09-26 05:42 | Day surgery (SDC) | payer MEDICARE, BC ==
[~2023-09-26 05:42] MED LIST changes: +ONDANSETRON 4 MG/2 ML VIAL IVP PRN; -REGADENOSON 0.4 MG/5 ML SYRINGE IV ONE; +TRANEXAMIC 1,000 MG/100ML-NACL 1,000 MG in SALINE 1 100ML.BAG IVPB PRN; +VANCOMYCIN 1,250 MG in SODIUM CHLORIDE 0.9% 250 ML IVPB PRN
[2023-09-26] MEDS ORDERED: LIDOCAINE 1% (10MG/ML) FOR IV START INTRADERMA PRN (06:19)
[2023-09-26] MEDS: LACTATED RINGERS 1,000 ML IV SCH ×2 (06:31→10:04)
[2023-09-26] MEDS ORDERED: MIDAZOLAM 2 MG/2 ML VIAL IV PRN (07:00)
[2023-09-26] MEDS: MIDAZOLAM 2 MG/2 ML VIAL IVP ONE (07:01)
[2023-09-26] MEDS: GABAPENTIN 300 MG CAP PO PRN (07:15)
[2023-09-26] MEDS: MELOXICAM 7.5 MG TAB PO PRN (07:15)
[2023-09-26] MEDS: ACETAMINOPHEN TAB 500 MG TAB PO PRN (07:15)
[2023-09-26] MEDS: DEXAMETHASONE SOD PHOSPHATE 4 MG/ML 1 ML VIAL IV ONE (07:15)
[2023-09-26] MEDS: ONDANSETRON 4 MG/2 ML VIAL IVP ONE ×2 (07:16→10:48)
--- NOTE | 2023-09-26 07:18 | P.ANPRN ---
Procedure Note - Anesthesia - Nerve Block Performed Right Interscalene Single Time Out Performed: Yes Date of Procedure: 09/26/23 Procedure Start Time: 07:00 Procedure Stop Time: 07:05 Location of Patient: PreOp Indication: Acute Post-Operative Pain, Analgesia, Requested by Surgeon Sedation Type: Sedate with meaningful contact maintained Preparation: Sterile Prep Position: Sitting Catheter: None Needle Types: Pajunk Needle Gauge: 21 Ultrasound used to visualize needle placement: Yes Ultrasound used to observe medication spread: Yes Injectate: 0.5% Ropivacaine (see comment for volume) ([id number]+decadron 4mg. No nerve stimulation @ 0.5MA.) Blood Aspirated: No Pain Paresthesia on Injection Noted: No Resistance on Injection: Normal Image Stored and Saved: Yes Events: Uneventful and Well Tolerated
[2023-09-26] MEDS ORDERED: fentaNYL (PF) 50 MCG/ML 2 ML AMP ONE (07:25)
[2023-09-26] MEDS ORDERED: ePHEDrine 50 MG/ML 1 ML VIAL ONE (07:25)
[2023-09-26] MEDS ORDERED: ROPIVACAINE 5 MG/ML 30 ML VIAL ONE (07:25)
[2023-09-26] MEDS ORDERED: TRANEXAMIC 1,000 MG/100ML-NACL PREMIX BAG ONE (07:25)
[2023-09-26] MEDS ORDERED: NEOSTIGMINE 1 MG/ML 10 ML VIAL ONE (07:25)
[2023-09-26] MEDS ORDERED: LIDOCAINE 1% INJ 10MG/ML (20 ML MDV) ONE (07:25)
[2023-09-26] MEDS ORDERED: PHENYLEPHRINE-0.9% NACL SYG 1,000 MCG/10 ML SYRINGE ONE (07:25)
[2023-09-26] MEDS ORDERED: PROPOFOL 10 MG/ML 20 ML VIAL IV ONE (07:25)
[2023-09-26] MEDS ORDERED: GLYCOPYRROLATE 0.2 MG/ML 2 ML VIAL ONE (07:25)
[2023-09-26] MEDS ORDERED: DEXAMETHASONE SOD PHOSPHATE 4 MG/ML 1 ML VIAL ONE (07:25)
[2023-09-26] MEDS ORDERED: SUCCINYLCHOLINE CHLORIDE 200 MG/10 ML VIAL IV ONE (07:25)
[2023-09-26] MEDS ORDERED: ROCURONIUM 10 MG/ML (5 ML VIAL) IV ONE (07:25)
[2023-09-26] MEDS ORDERED: diphenhydrAMINE 25 MG CAP PO PRN (07:33)
[2023-09-26] MEDS ORDERED: HYDROmorphone 0.5 MG/0.5 ML SYRINGE IVP PRN ×2 (07:33)
[2023-09-26] MEDS ORDERED: SENNOSIDES-DOCUSATE SODIUM 1 EACH TAB PO PRN (07:33)
[2023-09-26] MEDS ORDERED: HYDROcodone/APAP 7.5-325MG 1 EACH TAB PO PRN (07:39)
[2023-09-26] MEDS: VANCOMYCIN 1,000 MG VIAL MISCELLANE ONE (08:13)
[2023-09-26] MEDS: HYDROmorphone 0.5 MG/0.5 ML SYRINGE IVP PRN (09:31)
--- NOTE | 2023-09-26 10:14 | OP ---
OPERATIVE REPORT DATE OF SERVICE : 09/26/2023 ONCOLOGY NAVIGATOR: Matthew Dasilva PA-C. PREOPERATIVE DIAGNOSIS: Right shoulder advanced rotator cuff arthropathy. POSTOPERATIVE DIAGNOSIS: Right shoulder advanced rotator cuff arthropathy. OPERATION: Right reverse total shoulder arthroplasty. ANESTHESIA: General endotracheal. ESTIMATED BLOOD LOSS: 100 mL. DRAINS: None. COMPLICATIONS: None. DISPOSITION: Postanesthesia care unit. INDICATIONS: Mar is a very pleasant 83-year-old female with longstanding right shoulder pain. Workup including x-rays and CT scan revealed advanced rotator cuff arthropathy of the right shoulder. At this point, it is felt that she has failed conservative management, and she would like to proceed with operative intervention. Risks of procedure were discussed with her in detail. These risks include but are not limited to risk of infection, nerve damage, bleeding, pain, instability in the shoulder, loosening of the implants, and deep infection. There is also small risk of deep vein thrombosis, which could lead to fatal pulmonary embolism. The patient understood these risks. All of her questions with regard to the risks of procedure were answered to her satisfaction. Appropriate informed consent was obtained. DESCRIPTION OF PROCEDURE: The patient was identified in preoperative holding area. Surgical site was marked by both the patient and myself. She was given 2 g of Ancef IV for prophylactic purposes. She was then transported to the operative suite. She was placed supine on the operating table. A general anesthetic was then administered and dosed per the Anesthesia Department without apparent complication. Examination under anesthesia was then performed of the right shoulder. She had elevation to 120 degrees, external rotation to the side was 30 degrees. The patient was then placed into the beach chair position well-padded in preparation for surgery. Great care was taken to ensure that cervical spine was in neutral alignment, well-padded, and maintained that way throughout the operative procedure. Great care was also taken to ensure that the legs were appropriately padded as well. The patient's right upper extremity was then prepped and draped in usual sterile fashion. Standard surgical pause undertaken to ensure that we were operating the correct site and that appropriate preoperative antibiotics had been given. All staff in room were in agreement, and we proceeded. The acromion AC joint clavicle and coracoid were marked with a surgical pen. A planned incision starting at the level of the clavicle and extending distally over the deltopectoral interval approximately 1 cm lateral to the coracoid was marked with a surgical pen. The incision was then made with a 10-blade scalpel. Dissection was carried down sharply to the deltoid fascia. The deltopectoral interval was then identified at the level of clavicle. A small band retractor was then placed onto the proximal deltoid. I then released the deltoid fascia on the lateral aspect of the cephalic vein. The cephalic vein was left in its bed medially. The cephalic vein was protected throughout the entire case. I then identified the clavipectoral fascia. This was incised proximally to the level of the coracoacromial ligament. The coracoacromial ligament was left intact. I then used my finger to spread the interval between the conjoint tendon and the subscapularis. I felt for the axillary nerve at this point, which was readily palpable. I then cleared the subacromial and subdeltoid spaces of bursal and scar tissue. I then utilized a brown retractor to hold the deltoid and expose the humeral head. I then proceeded with the release of the subscapularis in the anterior-inferior shoulder capsule. The rotator cuff was then inspected. This was found to be intact. The rotator interval was then identified. The course of the biceps tendon was also identified. I then released the rotator interval. This was released at the base of the coracoid and then out laterally. The subscapularis and the capsule released intratendinously. The subscapularis and capsule release extended distally in a lazy-S fashion approximately 1 cm medial to the biceps tendon. I then continued to release the capsule along the inferior neck in a vertical fashion to approximately the 6 o'clock position. Great care was taken to ensure the capsule was always visualized as it was released, as to avoid injuring the axillary nerve. I then brought a Andrade adjunct political science instructor with the arm externally rotated and abducted. I continued to release the capsule inferomedially to approximately the 4 o'clock position. Inferior osteophytes were now removed as well. This was done with a rongeur. I then proceeded with preparation of the humerus. I removed all the goat's jimenez osteophytes. I then removed the subchondral plate from the superior aspect of the humeral head utilizing a large rongeur. I then used a starting reamer to gain access to the humeral canal. This was 1 cm medial to the rotator cuff insertion 1 cm posterior to the bicipital groove. I then prepared the humeral canal with hand reaming. I started with a 6 mm reamer, incrementally increased until firm resistance was encountered at 9 mm. The reamer handle was then left in place. Then utilized a humeral resection guide, set at 30 degrees of retrotorsion. The cutting block was then set approximately at the level of the previous insertion of the rotator cuff. I then proceeded to osteotomize the humeral head with an oscillating saw. I removed the resection guide and then completed the osteotomy. I then proceeded with trial stem placement. I then broached the canal starting with a 6 mm broach up to a 9 mm broach. The 9 mm trial stem was then left in place. Greater tuberosity was completely devoid of any rotator cuff attachment. With the stem left in place, I then proceeded with exposure of the glenoid. At this point, I did release the biceps tendon. This was tenotomized at the level of the superior labrum. A bone hook was then used to pull the humerus out laterally. I then inspected the joint for any loose bodies. Again, she had massive rotator cuff deficiency. The Bhattman retractor was then placed on the posterior glenoid rim. The arm was placed at approximately 80 degrees of abduction and in slight flexion on the Andrade stand. We then continued to remove the hypertrophic labrum to definitively identify the actual glenoid. I then proceeded with placement of a mini base plate. I used a mini base plate guide. The pin was placed as inferior on the glenoid as possible. The pin was then advanced. I then reamed the glenoid. She did have some erosion of the glenoid reamed as little as possible. Most of the reaming was in the inferior 75% of the glenoid. I then utilized the small offset guide. This fit very nicely and made up for the lack of reaming in the posterior superior aspect of the glenoid. I had the plastic products sales representative open a [place] Bolster mini base plate with a small offset. The offset was positioned slightly posterior superiorly. This was then impacted into the real glenoid. The starting pin was removed. I measured for the central screw. A 25 mm central screw was then placed. Surprisingly, I had an excellent purchase in bone. I was able to rotate the scapula through the screwdriver when it was fully seated. I then proceeded with placement of peripheral locking screws. The inferior screw was a 20 mm screw, the posterior screw was 15 mm screw, and the superior screw was 20 mm screw. There was very little bone anteriorly, so I did not place an anterior locking screw. Again, the wound was thoroughly irrigated with sterile saline solution with antibiotic added via pulse lavage. I also used some of the IrriSept antiseptic solution at this time. I had the plastic products sales representative open a 36 mm standard glenosphere. Slightly offset it as to inferiorize it very slightly. The Chandler taper was dried and then the glenosphere was impacted onto the base plate. The glenosphere was firmly seated. I then proceeded to trial with the renal glenosphere in place. I started with standard tray and standard poly trial. This was a mildly difficult reduction. It was very stable throughout a full range of motion. There was no impingement noted. The conjoint tendon did not have any undue tension. I did feel for the axillary nerve and it was readily palpable and intact. I decided to proceed with the standard tray and standard poly. The shoulder was then very carefully redislocated. The trial humeral components were removed. Again, the wound was thoroughly irrigated and the IrriSept antiseptic solution was utilized. I had the plastic products sales representative open a size 9 mini stem. A standard tray and a standard poly. The stem was then impacted into the proximal humerus in approximately 30 degrees of retrotorsion. I had an excellent fit. The Chandler taper was dried and then the standard tray and standard poly were then impacted onto the dried Chandler taper and the real stem. Again, the shoulder was reduced. Again, it was a mildly difficult reduction. It was very stable throughout a full range of motion. There was not any undue tension on the conjoint tendon. Again, I felt for the axillary nerve, which was readily palpable. At this point in time, no further work was deemed necessary. The shoulder was thoroughly irrigated again with sterile saline solution, antibiotic added via pulse lavage. Again, I utilized the remaining IrriSept antiseptic solution. Approximately 500 mg of vancomycin powder was placed deep. The deltopectoral interval was then reapproximated with 0 Vicryl interrupted suture. The subcutaneous tissue was thoroughly irrigated. The remaining 500 mg of vancomycin powder was placed subcutaneously. The subcutaneous tissue was closed with 2-0 Vicryl interrupted suture and the skin was closed with a running 3-0 Quill suture. Dermabond was applied at the incision. Sterile compressive dressing was applied, and the patient's right upper extremity was placed in a standard sling. All sponge and needle counts were deemed correct prior to closure. The patient tolerated the procedure without apparent complication. She was transferred to recovery room in stable condition. MMODL / IJN: [id number] /
--- NOTE | 2023-09-26 10:37 | XR ---
EXAMINATION TYPE: XR shoulder limited RT DATE OF EXAM: 09/26/2023 10:25 AM CLINICAL INDICATION:Female, 83 years old with history of post op; [facility] COMPARISON: 08/05/2018. TECHNIQUE: XR shoulder limited RT; examined in AP, internally rotated and scapular Y projections. FINDINGS: Shoulder arthroplasty with hardware intact. Subcutaneous lucencies compatible with recent surgery. No evidence for fracture. Hardware appears in tact The remaining portions of the visualized chest are unremarkable. IMPRESSION: 1. No acute osseous pathology. 2. Shoulder arthroplasty changes without evidence for competition.
[2023-09-26] MEDS: hydrALAZINE HCL 20 MG/ML 1 ML VIAL IVP ONE (10:46)
[2023-09-26] MEDS: ONDANSETRON 4 MG/2 ML VIAL IVP PRN (13:46)
[2023-09-27] MEDS: HYDROmorphone 0.5 MG/0.5 ML SYRINGE IVP PRN (00:56)
[2023-09-27] MEDS: LOSARTAN-HCTZ 50-12.5 MG 1 EACH TAB PO SCH (09:23)
[2023-09-27] MEDS: MULTIVITAMINS, THERA 1 EACH TAB PO SCH (09:23)
[2023-09-27] MEDS: NON FORMULARY DRUG (Mirabegron [Myrbetriq] 50 MG Tab.Er.24h) PO SCH (09:23)
[2023-09-27 09:32] VITALS: BP 103/62; PULSE 100; RESP 16; TEMP 99.1
[2023-09-27 10:22] LABS: Basophils # (A) 0.04 X 10*3/uL (0.00-0.10); Basophils % (A) 0.4 %; Eosinophils # (A) 0 X 10*3/uL (0.04-0.35); Eosinophils % (A) 0 %; HCT 36.2 % (37.2-46.3); HGB 11.7 g/dL (12.0-15.0); Lymphocytes # (A) 0.77 X 10*3/uL (0.90-5.00); Lymphocytes % (A) 8.1 %; MCH 30.7 pg (27.0-32.0); MCHC 32.3 g/dL (32.0-37.0); Mean Platelet Volume 9.3 FL (9.5-12.2); Monocytes # (A) 0.84 X 10*3/uL (0.20-1.00); Monocytes % (A) 8.8 %; NRBC Per 100 WBC 0 X 10*3/uL (0.00-0.01); Neutrophils # (A) 7.79 X 10*3/uL (1.80-7.70); Platelet Count 260 X 10*3/uL (140-440); RBC 3.81 X 10*6/uL (4.10-5.20); WBC 9.51 X 10*3/uL (4.50-10.00)
[2023-09-27 10:40] LABS: ALT 6 U/L (8-44); AST 17 U/L (13-35); Albumin 3.7 g/dL (3.8-4.9); Albumin/Globulin Ratio 1.85 Ratio (1.60-3.17); Alkaline Phosphatase 46 U/L (41-126); BUN/Creat Ratio 21.33 Ratio (12.00-20.00); Blood Urea Nitrogen 12.8 mg/dL (9.0-27.0); Calcium 9.2 mg/dL (8.7-10.3); Carbon Dioxide 26.5 mmol/L (21.6-31.8); Chloride 97 mmol/L (96-109); Glucose 135 mg/dL (70-110); Potassium 3.3 mmol/L (3.5-5.5); Sodium 137 mmol/L (135-145); Total Bilirubin 0.4 mg/dL (0.3-1.2); Total Protein 5.7 g/dL (6.2-8.2)
[2023-09-27] MEDS: POTASSIUM CHLORIDE ER 20 MEQ TAB.ER PO STA (12:59)
[2023-09-27] MEDS: HYDROcodone/APAP 7.5-325MG 1 EACH TAB PO PRN (13:04)
--- NOTE | 2023-09-27 14:07 | P.CONS ---
History of Present Illness - Reason for Consult Consult date: 09/27/23 - History of Present Illness Mar Grigsby, is an 83-year-old female who was admitted to [facility] by Dr. Adryan Osorio and underwent right shoulder total arthroplasty on 09/26/2023, consultation was requested for medical management while hospitalized. primary care physician is Dr. Holley. past medical history is significant for history of osteoarthritis with previous history of left total knee arthroplasty, history of hypertension, history of migraine headache. on review of systems patient is alert and oriented 3 in no apparent distress, there is no fever or chills no headache or dizziness no chest pain no shortness of breath no cough no nausea or vomiting no abdominal pain no diarrhea no blood in the stools no burning with urination no frequency or urgency and no hematuria. 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 lost 70lbs 2018. Urinary leakage wears pads. rt shoulder pain arthritis History of Any Multi-Drug Resistant Organisms: None Reported Past Surgical History: Section, Cholecystectomy, Hysterectomy, Joint Replacement, Orthopedic Surgery Additional Past Surgical History / Comment(s): PVO CLOSURE (2006)., LEFT SHOULDER REPLACEMENT, RIGHT KNEE replacement, RT FOOT BUNION , LASIK EYE SURGERY, TOTAL LEFT KNEE (11/04/17), LEFT KNEE TENDON REPAIR (11/18/17 and 12/23/17). Past Anesthesia/Blood Transfusion Reactions: Family History of Problems w/ Anesthesia, Postoperative Nausea & Vomiting (PONV) Additional Past Anesthesia/Blood Transfusion Reaction / Comm: son and daughter severe PONV Past Psychological History: No Psychological Hx Reported Smoking Status: Former smoker Past Alcohol Use History: Occasional Additional Past Alcohol Use History / Comment(s): started smoking as teen, quit smoking 50 yrs ago Past Drug Use History: None Reported - Past Family History Mother Family Medical History: Dementia, Diabetes Mellitus Father Family Medical History: Cancer Additional Family Medical History / Comment(s): NON-HODGKINS LYMPHOMA Medications and Allergies Home Medications Medication Instructions Recorded Confirmed Type Multivitamins, Thera [Multivitamin 1 tab PO DAILY 01/04/15 09/26/23 History (formulary)] Cholecalciferol [Vitamin D3 (25 5,000 unit PO DAILY 01/09/16 09/26/23 History Mcg = 1000 Iu)] Mirabegron [Myrbetriq] 50 mg PO DAILY 02/11/17 09/26/23 History Aspirin [Adult Low Dose Aspirin EC] 81 mg PO DAILY 03/28/18 09/26/23 History Celecoxib [CeleBREX] 200 mg PO BID 03/28/18 09/26/23 History Losartan/Hydrochlorothiazide 1 tab PO QAM 03/28/18 09/26/23 History [Hyzaar 100-25 Tablet] Calcium Carbonate/Vitamin D3 1 cap PO DAILY 08/05/18 09/26/23 History [Calcium 600-Vit D3 12.5 Mcg (500 Iu)] Acetaminophen [Tylenol Arthritis] 1 tab PO DIRECTED PRN 09/20/23 09/26/23 History Otc Stool Softner 1 tab PO DAILY PRN 09/20/23 09/26/23 History Docusate [Colace] 100 mg PO BID #60 capsule 09/26/23 Rx Doxycycline Hyclate 100 mg PO BID #10 tab 09/26/23 Rx Ondansetron [Zofran] 4 mg PO Q8HR PRN #21 tab 09/26/23 Rx Acetaminophen-Codeine 300-30mg 1 tab PO Q4H PRN #32 tablet 09/27/23 Rx [Tylenol w/codeine #3] traMADol HCL 50 mg PO Q4HR PRN #32 tab 09/27/23 Rx Allergies Allergy/AdvReac Type Severity Reaction Status Date / Time Sulfa (Sulfonamide AdvReac migraine Verified 09/26/23 06:52 Antibiotics) Physical Exam Vitals: Vital Signs Temp Pulse Resp BP BP Pulse Ox 09/27/23 09:23 100 16 09/27/23 08:00 99.1 F 100 16 103/62 91 L 09/27/23 01:51 99.7 F H 84 14 107/58 92 L 09/26/23 20:00 98.4 F 78 16 128/70 96 Intake and Output 09/26/23 09/27/23 09/27/23 22:59 06:59 14:59 Other: Voiding Method Toilet Toilet # Voids 1 2 1 In general patient is alert and oriented x 3 in no distress HEENT head normocephalic and atraumatic Neck is supple no JVD no goiter no lymphadenopathy no carotid bruit Chest examination is clear to auscultation no crackles no wheezing Cardiac exam reveals regular heart sounds S1 and S2 no gallops no murmurs Abdomen is soft nontender no organomegaly with normal bowel sounds Extremity exam reveals no edema no cyanosis or clubbing Neurological examination reveals no gross focal deficits Results CBC & Chem 7: 09/27/23 06:34 09/27/23 06:34 Labs: Abnormal Lab Results - Last 24 Hours (Table) 09/27/23 09/27/23 Range/Units 06:34 06:34 RBC 3.81 L (4.10-5.20) X 10*6/uL Hgb 11.7 L (12.0-15.0) g/dL Hct 36.2 L (37.2-46.3) % MPV 9.3 L (9.5-12.2) FL Immature Gran # 0.07 H (0.00-0.04) X 10*3/uL Neutrophils # 7.79 H (1.80-7.70) X 10*3/uL Lymphocytes # 0.77 L (0.90-5.00) X 10*3/uL Eosinophils # 0 L (0.04-0.35) X 10*3/uL Potassium 3.3 L (3.5-5.5) mmol/L Anion Gap 13.50 H (4.00-12.00) mmol/L BUN/Creatinine Ratio 21.33 H (12.00-20.00) Ratio Glucose 135 H (70-110) mg/dL ALT 6 L (8-44) U/L Total Protein 5.7 L (6.2-8.2) g/dL Albumin 3.7 L (3.8-4.9) g/dL Assessment and Plan Plan: osteoarthritis, status post right total shoulder arthroplasty Underlying history of hypertension Underlying history of migraine headache Underlying history of right bundle branch block and left posterior fascicular block Mild hypokalemia At this time patient was seen and examined Home medications reviewed and reordered Correct hypokalemia. patient is stable for discharge from medical standpoint.
--- NOTE | 2023-09-27 14:56 | P.DS ---
Providers Expected date of discharge: 09/27/23 Attending physician: Adryan Osorio Consults: 09/26/23 07:33 Consult Physician Routine Consulting Provider: Joe Keith Consult Reason/Comments: post op medical management Do you want consulting provider notified?: Yes Primary care physician: Susannah Holley - Discharge Diagnosis(es) (1) Osteoarthritis of right shoulder Patient was admitted to the OR on 09/26/23 to undergo a reverse right total shoulder arthroplasty. She had failed conservative measures as an outpatient and desired to proceed with elective surgery after given informed consent. She underwent the above procedure which he tolerated well without complication. Postoperative hospital course has remained without complication. On day of discharge she is afebrile, vital signs stable, labs within acceptable ranges, tolerating by mouth meds and diet, voiding without difficulty, positive flatus, denies abdominal pain or calf pain, pain is controlled on oral pain medication and has no new complaints. Wound is benign, neurovascular status is intact, calf is soft and nontender, abdomen soft and nontender. Review of systems is negative for numbness, tingling, fever, chills, chest pain, shortness of breath, nausea, vomiting, dizziness, headaches, slurred speech or other. Status: Acute Priority: Medium Procedures: Right TSA Patient Condition at Discharge: Good Plan - Discharge Summary Discharge Rx Participant: Yes New Discharge Prescriptions: New Ondansetron [Zofran] 4 mg PO Q8HR PRN #21 tab PRN Reason: Nausea traMADol HCL 50 mg PO Q4HR PRN #32 tab PRN Reason: Pain Acetaminophen-Codeine 300-30mg [Tylenol w/codeine #3] 1 tab PO Q4H PRN #32 tablet PRN Reason: Pain Docusate [Colace] 100 mg PO BID #60 capsule Doxycycline Hyclate 100 mg PO BID #10 tab No Action Multivitamins, Thera [Multivitamin (formulary)] 1 tab PO DAILY Cholecalciferol [Vitamin D3 (25 Mcg = 1000 Iu)] 5,000 unit PO DAILY Mirabegron [Myrbetriq] 50 mg PO DAILY Aspirin [Adult Low Dose Aspirin EC] 81 mg PO DAILY Celecoxib [CeleBREX] 200 mg PO BID Losartan/Hydrochlorothiazide [Hyzaar 100-25 Tablet] 1 tab PO QAM Calcium Carbonate/Vitamin D3 [Calcium 600-Vit D3 12.5 Mcg (500 Iu)] 1 cap PO DAILY Otc Stool Softner 1 tab PO DAILY PRN PRN Reason: Constipation Acetaminophen [Tylenol Arthritis] 1 tab PO DIRECTED PRN PRN Reason: Pain Discharge Medication List Multivitamins, Thera [Multivitamin (formulary)] 1 tab PO DAILY 01/04/15 [History] Cholecalciferol [Vitamin D3 (25 Mcg = 1000 Iu)] 5,000 unit PO DAILY 01/09/16 [History] Mirabegron [Myrbetriq] 50 mg PO DAILY 02/11/17 [History] Aspirin [Adult Low Dose Aspirin EC] 81 mg PO DAILY 03/28/18 [History] Celecoxib [CeleBREX] 200 mg PO BID 03/28/18 [History] Losartan/Hydrochlorothiazide [Hyzaar 100-25 Tablet] 1 tab PO QAM 03/28/18 [History] Calcium Carbonate/Vitamin D3 [Calcium 600-Vit D3 12.5 Mcg (500 Iu)] 1 cap PO DAILY 08/05/18 [History] Acetaminophen [Tylenol Arthritis] 1 tab PO DIRECTED PRN 09/20/23 [History] Otc Stool Softner 1 tab PO DAILY PRN 09/20/23 [History] Docusate [Colace] 100 mg PO BID #60 capsule 09/26/23 [Rx] Doxycycline Hyclate 100 mg PO BID #10 tab 09/26/23 [Rx] Ondansetron [Zofran] 4 mg PO Q8HR PRN #21 tab 09/26/23 [Rx] Acetaminophen-Codeine 300-30mg [Tylenol w/codeine #3] 1 tab PO Q4H PRN #32 tablet 09/27/23 [Rx] traMADol HCL 50 mg PO Q4HR PRN #32 tab 09/27/23 [Rx] Follow up Appointment(s)/Referral(s): Adryan Osorio MD [STAFF PHYSICIAN] - 10/09/23 9:30 am Activity/Diet/Wound Care/Special Instructions: Non Weight Bearing Maintain sling May shower after 3 days if no bleeding Keep wound clean and dry Take meds as directed F/U with Dr. Osorio in office Discharge Disposition: HOME SELF-CARE
== END 2023-09-27 13:28 | disposition home or self-care (01) ==
LOC: OR 05:42 → 4SSUR 09:04 → OR 09-27 13:28
PROVIDERS: ATTEND Orthopaedic Surgery Sports Medicine
DX: M19.011 Primary osteoarthritis, right shoulder (principal); M75.121 Complete rotator cuff tear or rupture of right shoulder, not specified as traumatic; I10 Essential (primary) hypertension; Z79.899 Other long term (current) drug therapy; Z79.82 Long term (current) use of aspirin; Z88.2 Allergy status to sulfonamides; F10.90 Alcohol use, unspecified, uncomplicated; Z87.891 Personal history of nicotine dependence
CPT/HCPCS: 64415; 80053; 85025; 73020; 23472; C1776; J2250; J3370; J0360; J1100; J0690; J2405; J1170 ×2

== ENCOUNTER 2023-11-24 00:15 | Inpatient (IN) | payer MEDICARE, BC ==
--- NOTE | 2023-11-24 00:51 | ED ---
General Adult HPI - General Chief complaint: GI Bleed Stated complaint: Blood in Stool Time Seen by Provider: 11/24/23 00:23 Source: family Mode of arrival: wheelchair Limitations: no limitations - History of Present Illness Initial comments: Dictation was produced using [employer] dictation software. please excuse any grammatical, word or spelling errors. Chief Complaint: 83-year-old female bright red blood per rectum History of Present Illness: Patient is 83-year-old female presents emergency department with episode of large-volume bright red blood per rectum. Patient was at home when she had an accident and there was a lot of blood that spilled into the toilet and around her bathroom. Patient denies any abdominal pain. She has no history GI bleed. She had a colonoscopy within the last couple years that was unremarkable. She had an episode of bright blood per rectum 3 months ago associated diverticulitis. Patient does not take any anticoagulation medications. The ROS documented in this emergency department record has been reviewed and confirmed by me. Those systems with pertinent positive or negative responses have been documented in the HPI. All other systems are other negative and/or noncontributory. - Related Data Home Medications Medication Instructions Recorded Confirmed Multivitamins, Thera [Multivitamin 1 tab PO DAILY 01/04/15 09/26/23 (formulary)] Cholecalciferol [Vitamin D3 (25 5,000 unit PO DAILY 01/09/16 09/26/23 Mcg = 1000 Iu)] Mirabegron [Myrbetriq] 50 mg PO DAILY 02/11/17 09/26/23 Aspirin [Adult Low Dose Aspirin EC] 81 mg PO DAILY 03/28/18 09/26/23 Celecoxib [CeleBREX] 200 mg PO BID 03/28/18 09/26/23 Losartan/Hydrochlorothiazide 1 tab PO QAM 03/28/18 09/26/23 [Hyzaar 100-25 Tablet] Calcium Carbonate/Vitamin D3 1 cap PO DAILY 08/05/18 09/26/23 [Calcium 600-Vit D3 12.5 Mcg (500 Iu)] Acetaminophen [Tylenol Arthritis] 1 tab PO DIRECTED PRN 09/20/23 09/26/23 Otc Stool Softner 1 tab PO DAILY PRN 09/20/23 09/26/23 Previous Rx's Medication Instructions Recorded Docusate [Colace] 100 mg PO BID #60 capsule 09/26/23 Doxycycline Hyclate 100 mg PO BID #10 tab 09/26/23 Ondansetron [Zofran] 4 mg PO Q8HR PRN #21 tab 09/26/23 Acetaminophen-Codeine 300-30mg 1 tab PO Q4H PRN #32 tablet 09/27/23 [Tylenol w/codeine #3] traMADol HCL 50 mg PO Q4HR PRN #32 tab 09/27/23 Allergies Allergy/AdvReac Type Severity Reaction Status Date / Time Sulfa (Sulfonamide AdvReac migraine Verified 11/24/23 00:20 Antibiotics) Review of Systems ROS Statement: Those systems with pertinent positive or pertinent negative responses have been documented in the HPI. ROS Other: All systems not noted in ROS Statement are negative. Past Medical History Past Medical History: CVA/TIA, Hearing Disorder / Deafness, Hypertension, Osteoarthritis (OA) Additional Past Medical History / Comment(s): HX OF HOLE IN HEART WITH SURGICAL REPAIR., MIGRAINES, SCOLIOSIS, IMMOBILIZER LEFT KNEE., hx TIA-no effects, constipation, History of Any Multi-Drug Resistant Organisms: None Reported Past Surgical History: Section, Cholecystectomy, Hysterectomy, Joint Replacement, Orthopedic Surgery Additional Past Surgical History / Comment(s): PVO CLOSURE (2006)., LEFT SHOULDER REPLACEMENT, RIGHT KNEE replacement, RT FOOT BUNION , LASIK EYE SURGERY, TOTAL LEFT KNEE (11/04/17), LEFT KNEE TENDON REPAIR (11/18/17 and 12/23/17). Past Anesthesia/Blood Transfusion Reactions: Family History of Problems w/ Anesthesia, Postoperative Nausea & Vomiting (PONV) Additional Past Anesthesia/Blood Transfusion Reaction / Comment(s): son and daughter severe PONV Past Psychological History: No Psychological Hx Reported Smoking Status: Never smoker Past Alcohol Use History: None Reported Past Drug Use History: None Reported - Past Family History Mother Family Medical History: Dementia, Diabetes Mellitus Father Family Medical History: Cancer Additional Family Medical History / Comment(s): NON-HODGKINS LYMPHOMA General Exam - General Exam Comments Initial Comments: PHYSICAL EXAM: General Impression: Alert and oriented x3, not in acute distress HEENT: Normocephalic atraumatic, extra-ocular movements intact, pupils equal and reactive to light bilaterally, mucous membranes moist. Cardiovascular: Heart regular rate and rhythm Chest: Able to complete full sentences, no retractions, no tachypnea Abdomen: abdomen soft, non-tender, non-distended, no organomegaly Musculoskeletal: Pulses present and equal in all extremities, no peripheral edema Motor: no focal deficits noted Neurological: CN II-XII grossly intact, no focal motor or sensory deficits noted Skin: Intact with no visualized rashes Psych: Normal affect and mood Rectal: Some bloody residue at the anus Limitations: no limitations Course Vital Signs 11/24/23 11/24/23 00:18 02:32 Temperature 97.7 F Pulse Rate 113 H 86 Respiratory 20 16 Rate Blood Pressure 145/79 131/95 O2 Sat by Pulse 97 95 Oximetry EKG Findings - EKG Comments: EKG Findings:: My EKG interpretation: Ventricular rate 87, right bundle branch block,. 152, cures 130, QTc 428. No WI prolongation, no QTC prolongation, no ST or T-wave changes noted. Overall, this EKG is unremarkable Medical Decision Making - Medical Decision Making Was pt. sent in by a medical professional or institution (, PA, INSTRUCTIONAL MANAGER, urgent care, hospital, or detention...) When possible be specific @ -No Did you speak to anyone other than the patient for history (EMS, parent, family, police, friend...)? What history was obtained from this source @ -Some history obtained from daughter as described above Did you review nursing and triage notes (agree or disagree)? Why? @ -I reviewed and agree with nursing and triage notes Were old charts reviewed (outside hosp., previous admission, EMS record, old EKG , old radiological studies, urgent care reports/EKG's, detention records)? Report findings @ -No old charts were reviewed Differential Diagnosis (chest pain, altered mental status, abdominal pain women, abdominal pain men, vaginal bleeding, musculoskeletal, weakness, fever, dyspnea, syncope, headache, dizziness, GI bleed, back pain, seizure, CVA, palpatations, mental health)? @ -Differential GI Bleed: Esophageal varices, aortoenteric fistula, Savita-Lindsey, gastritis, peptic ulcer disease, diverticulosis, inflammatory bowel disease, hemorrhoids, fissure, colitis, malignancy, Meckels diverticulum, this is not meant to be an all- inclusive list. EKG interpreted by me (3pts min.). @ -See above X-rays interpreted by me (1pt min.). @ -None done CT interpreted by me (1pt min.). @ -None done U/S interpreted by me (1pt. min.). @ -None done What testing was considered but not performed or refused? (CT, X-rays, U/S, labs)? Why? @ -None What meds were considered but not given or refused? Why? @ -None Was smoking cessation discussed for >3mins.? @ -No Were there social determinants of health that impacted care today? How? (Homelessness, low income, unemployed, alcoholism, drug addiction, transportation, low edu. Level, literacy, decrease access to med. care, care home, rehab)? @ -No Was there de-escalation of care discussed even if they declined (Discuss DNR or withdrawal of care, Hospice)? DNR status @ -No What co-morbidities impacted this encounter? (DM, HTN, Smoking, COPD, CAD, Cancer, CVA, ARF, Chemo, Hep., AIDS, mental health diagnosis, sleep apnea, morbid obesity)? @ -None Was patient admitted / discharged? Hospital course, mention meds given and route, prescriptions, significant lab abnormalities, going to OR and other pertinent info. @ -83-year-old female with past medical history of stroke hypertension and osteoarthritis presents to the ER with bright red blood per rectum. According to daughter and patient there was a large amount of bleeding in her bathroom. Seem to have stopped however. Vital signs upon arrival are within acceptable limits. Laboratory evaluation obtained. Hemoglobin stable at 13.5. Rest of labs within acceptable limits. Stool gallbladder is positive. Case discussed with general surgery who does perform colonoscopies. Patient admitted to hospitalist with consultation to general surgery. Patient not feel comfortable being discharge and would prefer not to be transferred to outside facility for senior economist. Did you discuss the management of the patient with other professionals (professionals i.e. , PA, INSTRUCTIONAL MANAGER, lab, RT, psych nurse, director of social services, rn stars, teacher, nuclear medicine officer, caseworker intake)? Give summary @ -See above Was critical care preformed (if so, how long)? @ -No Undiagnosed new problem with uncertain prognosis? @ -No Drug Therapy requiring intensive monitoring for toxicity (Heparin, Nitro, Insu kristi, Cardizem)? @ -No Were any procedures done? @ -No Diagnosis/symptom? Acute, or Chronic, or Acute on Chronic? Uncomplicated (without systemic symptoms) or Complicated (systemic symptoms)? @ -Bright red blood per rectum Side effects of treatment? @ -No Exacerbation, Progression, or Severe Exacerbation? @ -No Poses a threat to life or bodily function? How? (Chest pain, [place], [place], pneumonia, PE, COPD, DKA, ARF, appy, cholecystitis, CVA, Diverticulitis, Homicidal, Suicidal, threat to staff... and all critical care pts) @ -yes - Lab Data Result diagrams: 11/24/23 01:00 11/24/23 01:00 Lab Results 11/24/23 11/24/23 11/24/23 Range/Units 00:36 01:00 01:00 WBC 7.6 (3.8-10.6) k/uL RBC 4.41 (3.80-5.40) m/uL Hgb 13.5 (11.4-16.0) gm/dL Hct 43.5 (34.0-46.0) % MCV 98.6 (80.0-100.0) fL MCH 30.5 (25.0-35.0) pg MCHC 31.0 (31.0-37.0) g/dL RDW 14.6 (11.5-15.5) % Plt Count 216 (150-450) k/uL MPV 7.8 Neutrophils % 75 % Lymphocytes % 15 % Monocytes % 5 % Eosinophils % 3 % Basophils % 1 % Neutrophils # 5.7 (1.3-7.7) k/uL Lymphocytes # 1.2 (1.0-4.8) k/uL Monocytes # 0.4 (0-1.0) k/uL Eosinophils # 0.2 (0-0.7) k/uL Basophils # 0.0 (0-0.2) k/uL PT (10.0-12.5) sec INR (<1.2) APTT (22.0-30.0) sec Sodium 138 (137-145) mmol/L Potassium 4.0 (3.5-5.1) mmol/L Chloride 109 H (98-107) mmol/L Carbon Dioxide 20 L (22-30) mmol/L Anion Gap 9 mmol/L BUN 31 H (7-17) mg/dL Creatinine 0.58 (0.52-1.04) mg/dL Est GFR (CKD-EPI)AfAm >90 (>60 ml/min/1.73 sqM) Est GFR (CKD-EPI)NonAf 87 (>60 ml/min/1.73 sqM) Glucose 129 H (74-99) mg/dL Calcium 9.3 (8.4-10.2) mg/dL Total Bilirubin 0.6 (0.2-1.3) mg/dL AST 25 (14-36) U/L ALT 13 (4-34) U/L Alkaline Phosphatase 78 (38-126) U/L Total Protein 6.4 (6.3-8.2) g/dL Albumin 3.9 (3.5-5.0) g/dL Stool Occult Blood Positive H (Negative) 11/24/23 Range/Units 01:00 WBC (3.8-10.6) k/uL RBC (3.80-5.40) m/uL Hgb (11.4-16.0) gm/dL Hct (34.0-46.0) % MCV (80.0-100.0) fL MCH (25.0-35.0) pg MCHC (31.0-37.0) g/dL RDW (11.5-15.5) % Plt Count (150-450) k/uL MPV Neutrophils % % Lymphocytes % % Monocytes % % Eosinophils % % Basophils % % Neutrophils # (1.3-7.7) k/uL Lymphocytes # (1.0-4.8) k/uL Monocytes # (0-1.0) k/uL Eosinophils # (0-0.7) k/uL Basophils # (0-0.2) k/uL PT 10.6 (10.0-12.5) sec INR 1.0 (<1.2) APTT 21.0 L (22.0-30.0) sec Sodium (137-145) mmol/L Potassium (3.5-5.1) mmol/L Chloride (98-107) mmol/L Carbon Dioxide (22-30) mmol/L Anion Gap mmol/L BUN (7-17) mg/dL Creatinine (0.52-1.04) mg/dL Est GFR (CKD-EPI)AfAm (>60 ml/min/1.73 sqM) Est GFR (CKD-EPI)NonAf (>60 ml/min/1.73 sqM) Glucose (74-99) mg/dL Calcium (8.4-10.2) mg/dL Total Bilirubin (0.2-1.3) mg/dL AST (14-36) U/L ALT (4-34) U/L Alkaline Phosphatase (38-126) U/L Total Protein (6.3-8.2) g/dL Albumin (3.5-5.0) g/dL Stool Occult Blood (Negative) Disposition Clinical Impression: BRBPR (bright red blood per rectum) Disposition: ADMITTED IP TO THIS HOSP Condition: Fair Referrals: Susannah Holley MD [Primary Care Provider] - 1-2 days Decision Time: 03:02
[2023-11-24 01:14] LABS: Basophils % (A) 1 %; Eosinophils # (A) 0.2 k/uL (0-0.7); Eosinophils % (A) 3 %; HCT 43.5 % (34.0-46.0); HGB 13.5 gm/dL (11.4-16.0); Lymphocytes # (A) 1.2 k/uL (1.0-4.8); Lymphocytes % (A) 15 %; MCH 30.5 pg (25.0-35.0); MCV 98.6 fL (80.0-100.0); Mean Platelet Volume 7.8; Monocytes # (A) 0.4 k/uL (0-1.0); Monocytes % (A) 5 %; Neutrophils # (A) 5.7 k/uL (1.3-7.7); Neutrophils % (A) 75 %; Platelet Count 216 k/uL (150-450); RBC 4.41 m/uL (3.80-5.40); RDW 14.6 % (11.5-15.5); WBC 7.6 k/uL (3.8-10.6)
[2023-11-24 01:32] LABS: ALT 13 U/L (4-34); AST 25 U/L (14-36); African American GFR (CKD) >90 (>60 ml/min/1.73 sqM); Albumin 3.9 g/dL (3.5-5.0); Alkaline Phosphatase 78 U/L (38-126); Anion Gap 9 mmol/L; Blood Urea Nitrogen 31 mg/dL (7-17); Calcium 9.3 mg/dL (8.4-10.2); Carbon Dioxide 20 mmol/L (22-30); Chloride 109 mmol/L (98-107); Glucose 129 mg/dL (74-99); Non-African American GFR(CKD) 87 (>60 ml/min/1.73 sqM); Sodium 138 mmol/L (137-145); Total Bilirubin 0.6 mg/dL (0.2-1.3); Total Protein 6.4 g/dL (6.3-8.2)
[2023-11-24 01:56] LABS: Prothrombin Time 10.6 sec (10.0-12.5)
[2023-11-24] MEDS ORDERED: NALOXONE 0.4 MG/ML 1 ML VIAL IV PRN (02:58)
[2023-11-24] MEDS: SODIUM CHLORIDE 0.9% 1,000 ML IV STA (03:31)
--- NOTE | 2023-11-24 10:10 | P.HPIM ---
History of Present Illness H&P Date: 11/24/23 This is an 83-year-old female patient who presented with concerns GI bleed. Patient reports that she went to the bathroom last night and had a large amount of bright red blood. Patient denies any abdominal pain nausea or vomiting prior to episode. Patient does report she was recently diagnosed with mild diverticulitis per PCP but reports she has not had a colonoscopy in 9 years and has not seen GI services. Patient denies NSAID use but does report she takes daily baby aspirin. Patient denies alcohol use. Patient did have CT done in August 2023 which showed mild cecal diverticulitis without organizing fluid collection or mass no evidence for obstructive uropathy colonic diverticulosis. Patient reports this was managed by her PCP has not seen GI services. Additional medical history includes CVA, hearing disorder, hypertension, osteoarthritis, PVO closure in 2006 and constipation. Stool for occult blood was positive. Hemoglobin stable at 13.5. Current vital signs Temp 98.4, heart rate 87, respiratory rate 17, blood pressure 127/72 with a pulse ox of 97% on room air. At this time patient will be admitted. Patient to continue monitoring of hemoglobin level. Surgical services consulted Review of Systems Please refer to HPI otherwise unremarkable Past Medical History Past Medical History: CVA/TIA, Hearing Disorder / Deafness, Hypertension, Osteoarthritis (OA) Additional Past Medical History / Comment(s): HX OF HOLE IN HEART WITH SURGICAL REPAIR., MIGRAINES, SCOLIOSIS, hx TIA-no effects, constipation, History of Any Multi-Drug Resistant Organisms: None Reported Past Surgical History: Section, Cholecystectomy, Hysterectomy, Joint Replacement, Orthopedic Surgery Additional Past Surgical History / Comment(s): PVO CLOSURE (2006)., LEFT SHOULDER REPLACEMENT, RIGHT KNEE replacement, RT FOOT BUNION , LASIK EYE SURGERY, TOTAL LEFT KNEE (11/04/17), LEFT KNEE TENDON REPAIR (11/18/17 and 12/23/17). Past Anesthesia/Blood Transfusion Reactions: Family History of Problems w/ Anesthesia, Postoperative Nausea & Vomiting (PONV) Additional Past Anesthesia/Blood Transfusion Reaction / Comment(s): son and daughter severe PONV Past Psychological History: No Psychological Hx Reported Smoking Status: Never smoker Past Alcohol Use History: None Reported Additional Past Alcohol Use History / Comment(s): started smoking as teen, quit smoking 50 yrs ago Past Drug Use History: None Reported - Past Family History Mother Family Medical History: Dementia, Diabetes Mellitus Father Family Medical History: Cancer Additional Family Medical History / Comment(s): NON-HODGKINS LYMPHOMA Medications and Allergies Home Medications Medication Instructions Recorded Confirmed Type Multivitamins, Thera [Multivitamin 1 tab PO DAILY 01/04/15 09/26/23 History (formulary)] Cholecalciferol [Vitamin D3 (25 5,000 unit PO DAILY 01/09/16 09/26/23 History Mcg = 1000 Iu)] Mirabegron [Myrbetriq] 50 mg PO DAILY 02/11/17 09/26/23 History Aspirin [Adult Low Dose Aspirin EC] 81 mg PO DAILY 03/28/18 09/26/23 History Celecoxib [CeleBREX] 200 mg PO BID 03/28/18 09/26/23 History Losartan/Hydrochlorothiazide 1 tab PO QAM 03/28/18 09/26/23 History [Hyzaar 100-25 Tablet] Calcium Carbonate/Vitamin D3 1 cap PO DAILY 08/05/18 09/26/23 History [Calcium 600-Vit D3 12.5 Mcg (500 Iu)] Acetaminophen [Tylenol Arthritis] 1 tab PO DIRECTED PRN 09/20/23 09/26/23 History Otc Stool Softner 1 tab PO DAILY PRN 09/20/23 09/26/23 History Docusate [Colace] 100 mg PO BID #60 capsule 09/26/23 Rx Doxycycline Hyclate 100 mg PO BID #10 tab 09/26/23 Rx Ondansetron [Zofran] 4 mg PO Q8HR PRN #21 tab 09/26/23 Rx Acetaminophen-Codeine 300-30mg 1 tab PO Q4H PRN #32 tablet 09/27/23 Rx [Tylenol w/codeine #3] traMADol HCL 50 mg PO Q4HR PRN #32 tab 09/27/23 Rx Allergies Allergy/AdvReac Type Severity Reaction Status Date / Time Sulfa (Sulfonamide AdvReac migraine Verified 11/24/23 00:20 Antibiotics) Physical Exam Vitals: Vital Signs Temp Pulse Pulse Resp BP BP Pulse Ox 11/24/23 07:56 98.4 F 87 17 127/72 97 11/24/23 03:49 98.2 F 85 16 133/86 96 11/24/23 03:23 90 16 144/81 94 L 11/24/23 02:32 86 16 131/95 95 11/24/23 00:18 97.7 F 113 H 20 145/79 97 Intake and Output 11/23/23 11/24/23 11/24/23 22:59 06:59 14:59 Other: # Voids 1 Weight 75.795 kg Head normocephalic Neck supple Lungs clear to auscultation bilaterally no wheezing or crackles Heart regular rate and rhythm S1-S2, no rub or gallop Abdomen is soft nontender nondistended positive bowel sounds no hepatosplenomegaly Extremities no edema Neuro alert and orientated to 3 Results CBC & Chem 7: 11/24/23 01:00 11/24/23 01:00 Labs: Abnormal Lab Results - Last 24 Hours (Table) 11/24/23 11/24/23 11/24/23 Range/Units 00:36 01:00 01:00 APTT 21.0 L (22.0-30.0) sec Chloride 109 H (98-107) mmol/L Carbon Dioxide 20 L (22-30) mmol/L BUN 31 H (7-17) mg/dL Glucose 129 H (74-99) mg/dL Stool Occult Blood Positive H (Negative) Assessment and Plan Assessment: 1. GI bleed. 2. History of diverticulitis diagnosed in August 2023 3. History of CVA 4. History of PVO closure in 2006 5. History of essential hypertension 6. History of osteoarthritis 7. History of hearing disorder DVT prophylaxis SCDs GI prophylaxis Protonix Continue to monitor hemoglobin Surgical services consulted Time with Patient: Greater than 30 (Greater than 60% of the total time spent in counseling and coordination of care)
--- NOTE | 2023-11-24 13:17 | P.GSCN ---
History of Present Illness Consult date: 11/24/23 Reason for Consult: GI bleed History of present illness: 83-year-old female presents with rectal bleeding. Dark in color. Up to 10 episodes yesterday. History of ? Cecal diverticulitis in August. Films reviewed. Findings quite subtle. No obvious mass. Last colonoscopy 9 years ago. No abdominal pain. Hemoglobin 13.5. Some lightheadedness. Takes baby aspirin daily. Review of Systems The patient denies any acute changes in vision or hearing, no dysphagia or odynophagia, no chest pain or shortness of breath, no dysuria or hematuria, no headache, no runny nose, no unexplained weight loss Past Medical History Past Medical History: CVA/TIA, Hearing Disorder / Deafness, Hypertension, Osteoarthritis (OA) Additional Past Medical History / Comment(s): HX OF HOLE IN HEART WITH SURGICAL REPAIR., MIGRAINES, SCOLIOSIS, hx TIA-no effects, constipation, History of Any Multi-Drug Resistant Organisms: None Reported Past Surgical History: Section, Cholecystectomy, Hysterectomy, Joint Re placement, Orthopedic Surgery Additional Past Surgical History / Comment(s): PVO CLOSURE (2006)., LEFT SHOULDER REPLACEMENT, RIGHT KNEE replacement, RT FOOT BUNION , LASIK EYE SURGERY, TOTAL LEFT KNEE (11/04/17), LEFT KNEE TENDON REPAIR (11/18/17 and 12/23/17). Past Anesthesia/Blood Transfusion Reactions: Family History of Problems w/ Anesthesia, Postoperative Nausea & Vomiting (PONV) Additional Past Anesthesia/Blood Transfusion Reaction / Comm: son and daughter severe PONV Past Psychological History: No Psychological Hx Reported Smoking Status: Never smoker Past Alcohol Use History: None Reported Additional Past Alcohol Use History / Comment(s): started smoking as teen, quit smoking 50 yrs ago Past Drug Use History: None Reported - Past Family History Mother Family Medical History: Dementia, Diabetes Mellitus Father Family Medical History: Cancer Additional Family Medical History / Comment(s): NON-HODGKINS LYMPHOMA Medications and Allergies Home Medications Medication Instructions Recorded Confirmed Type Aspirin [Adult Low Dose Aspirin EC] 81 mg PO DAILY 03/28/18 11/24/23 History Celecoxib [CeleBREX] 200 mg PO BID 03/28/18 11/24/23 History Calcium Carbonate/Vitamin D3 1 cap PO DAILY 08/05/18 11/24/23 History [Calcium 600-Vit D3 12.5 Mcg (500 Iu)] Acetaminophen [Tylenol Arthritis] 1,300 tab PO BID PRN 09/20/23 11/24/23 History Docusate [Colace] 400 mg PO HS 11/24/23 11/24/23 History L.acidoph,Paracasei, B.lactis 1 cap PO DAILY 11/24/23 11/24/23 History [Probiotic] Multivit-Min/Folic Acid/[id number] 1 tab PO DAILY 11/24/23 11/24/23 History [Alive Premium Adult Multivit] Psyllium Husk 100% [Metamucil 6 gm PO DAILY 11/24/23 11/24/23 History Packet] Allergies Allergy/AdvReac Type Severity Reaction Status Date / Time Sulfa (Sulfonamide AdvReac migraine Verified 11/24/23 10:43 Antibiotics) Surgical - Exam Vital Signs Temp Pulse Resp BP Pulse Ox 97.7 F 113 H 20 145/79 97 11/24/23 00:18 11/24/23 00:18 11/24/23 00:18 11/24/23 00:18 11/24/23 00:18 Physical exam: General: Well-developed, well-nourished HEENT: Normocephalic, sclerae nonicteric Abdomen: Nontender, nondistended Extremities: No edema Neuro: Alert and oriented Results - Labs 11/24/23 01:00 11/24/23 01:00 Abnormal Lab Results - Last 24 Hours (Table) 11/24/23 11/24/23 11/24/23 Range/Units 00:36 01:00 01:00 APTT 21.0 L (22.0-30.0) sec Chloride 109 H (98-107) mmol/L Carbon Dioxide 20 L (22-30) mmol/L BUN 31 H (7-17) mg/dL Glucose 129 H (74-99) mg/dL Stool Occult Blood Positive H (Negative) Diabetes panel 11/24/23 Range/Units 01:00 Sodium 138 (137-145) mmol/L Potassium 4.0 (3.5-5.1) mmol/L Chloride 109 H (98-107) mmol/L Carbon Dioxide 20 L (22-30) mmol/L BUN 31 H (7-17) mg/dL Creatinine 0.58 (0.52-1.04) mg/dL Glucose 129 H (74-99) mg/dL Calcium 9.3 (8.4-10.2) mg/dL AST 25 (14-36) U/L ALT 13 (4-34) U/L Alkaline Phosphatase 78 (38-126) U/L Total Protein 6.4 (6.3-8.2) g/dL Albumin 3.9 (3.5-5.0) g/dL Calcium panel 11/24/23 Range/Units 01:00 Calcium 9.3 (8.4-10.2) mg/dL Albumin 3.9 (3.5-5.0) g/dL Pituitary panel 11/24/23 Range/Units 01:00 Sodium 138 (137-145) mmol/L Potassium 4.0 (3.5-5.1) mmol/L Chloride 109 H (98-107) mmol/L Carbon Dioxide 20 L (22-30) mmol/L BUN 31 H (7-17) mg/dL Creatinine 0.58 (0.52-1.04) mg/dL Glucose 129 H (74-99) mg/dL Calcium 9.3 (8.4-10.2) mg/dL Adrenal panel 11/24/23 Range/Units 01:00 Sodium 138 (137-145) mmol/L Potassium 4.0 (3.5-5.1) mmol/L Chloride 109 H (98-107) mmol/L Carbon Dioxide 20 L (22-30) mmol/L BUN 31 H (7-17) mg/dL Creatinine 0.58 (0.52-1.04) mg/dL Glucose 129 H (74-99) mg/dL Calcium 9.3 (8.4-10.2) mg/dL Total Bilirubin 0.6 (0.2-1.3) mg/dL AST 25 (14-36) U/L ALT 13 (4-34) U/L Alkaline Phosphatase 78 (38-126) U/L Total Protein 6.4 (6.3-8.2) g/dL Albumin 3.9 (3.5-5.0) g/dL Assessment and Plan (1) GI bleed Narrative/Plan: 83-year-old female with admission for GI bleed. Some dark discoloration to the blood leaves the possibility of upper GI bleed open. Options discussed. Recent cecal diverticulitis diagnosis certainly unusual. Will proceed with upper and lower endoscopy at this time. Current Visit: Yes Status: Acute Code(s): K92.2 - GASTROINTESTINAL HEMORRHAGE, UNSPECIFIED SNOMED Code(s): 94708424
[2023-11-24] MEDS: PEG 3350 (236 GM/BTL) + LYTES 4,000 ML BOTTLE PO ONE (15:00)
[2023-11-25] MEDS: PANTOPRAZOLE 40 MG TABLET PO SCH (06:26)
[2023-11-25] MEDS ORDERED: ZINC OXIDE PASTE (Z-GUARD) 1 APPLIC TOPICAL PRN (09:25)
[2023-11-25] MEDS ORDERED: PROPOFOL 10 MG/ML 20 ML VIAL IV ONE (09:52)
[2023-11-25] MEDS: SODIUM CHLORIDE 0.9% 500 ML 500 ML IV ONE ×2 (09:53→10:18)
[2023-11-25 10:59] LABS: Basophils # (A) 0.03 X 10*3/uL (0.00-0.10); Basophils % (A) 0.6 %; Eosinophils # (A) 0.18 X 10*3/uL (0.04-0.35); Eosinophils % (A) 3.7 %; HCT 34.6 % (37.2-46.3); HGB 10.9 g/dL (12.0-15.0); Lymphocytes # (A) 1.37 X 10*3/uL (0.90-5.00); Lymphocytes % (A) 27.8 %; MCH 30.4 pg (27.0-32.0); MCHC 31.5 g/dL (32.0-37.0); MCV 96.4 FL (80.0-97.0); Mean Platelet Volume 9.9 FL (9.5-12.2); Monocytes # (A) 0.47 X 10*3/uL (0.20-1.00); Monocytes % (A) 9.6 %; NRBC Per 100 WBC 0 X 10*3/uL (0.00-0.01); Neutrophils # (A) 2.84 X 10*3/uL (1.80-7.70); Neutrophils % (A) 57.7 %; Platelet Count 178 X 10*3/uL (140-440); RBC 3.59 X 10*6/uL (4.10-5.20); RDW 15.1 % (11.5-14.5); WBC 4.92 X 10*3/uL (4.50-10.00)
[2023-11-25 11:06] LABS: ALT 10 U/L (8-44); AST 17 U/L (13-35); Albumin 3.7 g/dL (3.8-4.9); Albumin/Globulin Ratio 1.95 Ratio (1.60-3.17); Alkaline Phosphatase 52 U/L (41-126); Blood Urea Nitrogen 12.4 mg/dL (9.0-27.0); Carbon Dioxide 23.9 mmol/L (21.6-31.8); Chloride 108 mmol/L (96-109); Globulin 1.9 g/dL (1.6-3.3); Glucose 90 mg/dL (70-110); Potassium 3.9 mmol/L (3.5-5.5); Sodium 144 mmol/L (135-145); Total Bilirubin 0.5 mg/dL (0.3-1.2); Total Protein 5.6 g/dL (6.2-8.2)
--- NOTE | 2023-11-25 12:37 | P.PCN ---
Date of Procedure: 11/25/23 Procedure(s) Performed: PREOPERATIVE DIAGNOSIS: GI bleed POSTOPERATIVE DIAGNOSIS: Gastritis, hiatal hernia, diverticulosis, hemorrhoids PROCEDURE: 1. EGD with biopsy 2. Colonoscopy ANESTHESIA: MAC SURGEON: Reuben Hood M.D. SPECIMENS: Antrum ENDOSCOPIC PROCEDURE: The patient was on the endoscopy table in the left decubitus position. The Olympus gastroscope was inserted into the oropharynx and passed under direct visualization to the region of the third portion of the duodenum. From that point the scope was slowly withdrawn inspecting all surfaces carefully. There were no neoplastic inflammatory or polypoid lesions throughout the duodenum. The pylorus was widely patent. The stomach was car efully inspected. There was mild gastritis present. A biopsy of the antrum took place to rule out H. pylori. Retroflexion revealed a small sliding hiatal hernia. There was no blood within the stomach. The esophagus was then carefully examined. There were no neoplastic inflammatory or polypoid lesions throughout the visualized esophagus. The patient was kept on the endoscopy table in the left decubitus position. The Olympus colonoscope was inserted into the anus and passed under direct visualization to the base of the cecum. The appendiceal orifice was visualized. From that point the scope was slowly withdrawn inspecting all surfaces carefully. There were no neoplastic inflammatory or polypoid lesions throughout the cecum, ascending, transverse, descending, sigmoid and rectum. There was mild scattered diverticulosis noted scattered throughout colon. There was no blood within the colon. Digital rectal examination was normal. The patient was taken to the recovery room in stable condition per anesthesia guidelines. RECOMMENDATIONS: Resume regular diet. Bleeding likely related to diverticular source. No further bleeding at this time. If hemoglobin stable may discharge from our point of view.
[2023-11-26 08:42] LABS: Basophils # (A) 0.04 X 10*3/uL (0.00-0.10); Basophils % (A) 0.8 %; Eosinophils # (A) 0.26 X 10*3/uL (0.04-0.35); Eosinophils % (A) 5.5 %; HCT 32.3 % (37.2-46.3); HGB 10.3 g/dL (12.0-15.0); Lymphocytes # (A) 1.56 X 10*3/uL (0.90-5.00); Lymphocytes % (A) 32.8 %; MCH 30.6 pg (27.0-32.0); MCHC 31.9 g/dL (32.0-37.0); MCV 95.8 FL (80.0-97.0); Mean Platelet Volume 9.8 FL (9.5-12.2); Monocytes # (A) 0.48 X 10*3/uL (0.20-1.00); Monocytes % (A) 10.1 %; NRBC Per 100 WBC 0 X 10*3/uL (0.00-0.01); Neutrophils # (A) 2.39 X 10*3/uL (1.80-7.70); Neutrophils % (A) 50.4 %; Platelet Count 182 X 10*3/uL (140-440); RBC 3.37 X 10*6/uL (4.10-5.20); WBC 4.75 X 10*3/uL (4.50-10.00)
[2023-11-26 08:48] VITALS: BP 132/74; PULSE 74; RESP 18; TEMP 98.1
[2023-11-26] MEDS: SODIUM FERRIC GLUCONAT-SUCROSE 125 MG in SODIUM CHLORIDE 0.9% 100 ML IVPB ONE (10:44)
--- NOTE | 2023-11-26 10:48 | P.DS ---
Providers Date of admission: 11/26/23 09:15 Expected date of discharge: 11/26/23 Attending physician: Joe Keith Consults: 11/25/23 08:08 Consult Physician Routine Consulting Provider: Reuben Hood Consult Reason/Comments: GI bleed Do you want consulting provider notified?: Already Contacted Primary care physician: Susannah Holley [facility] Course: Discharge diagnosis 1. GI bleed. 2. History of diverticulitis diagnosed in August 2023 3. History of CVA 4. History of PVO closure in 2006 5. History of essential hypertension 6. History of osteoarthritis 7. History of hearing disorder Hospital course This is an 83-year-old female patient who presented with concerns GI bleed. Patient reports that she went to the bathroom last night and had a large amount of bright red blood. Patient denies any abdominal pain nausea or vomiting prior to episode. Patient does report she was recently diagnosed with mild diverticulitis per PCP but reports she has not had a colonoscopy in 9 years and has not seen GI services. Patient denies NSAID use but does report she takes daily baby aspirin. Patient denies alcohol use. Patient did have CT done in August 2023 which showed mild cecal diverticulitis without organizing fluid collection or mass no evidence for obstructive uropathy colonic diverticulosis. Patient reports this was managed by her PCP has not seen GI services. Additional medical history includes CVA, hearing disorder, hypertension, osteoarthritis, PVO closure in 2006 and constipation. Stool for occult blood was positive. Hemoglobin stable at 13.5. Current vital signs Temp 98.4, heart rate 87, respiratory rate 17, blood pressure 127/72 with a pulse ox of 97% on room air. At this time patient will be admitted. Patient to continue monitoring of hemoglobin level. Surgical services consulted On 11/26/2023 patient underwent EGD and colonoscopy showing gastritis hiatal hernia diverticulosis and hemorrhoids. No further episodes of bleeding per patient. Patient has been cleared for discharge from surgical standpoint. Hemoglobin 10.3 patient to receive IV iron prior to discharge will be DC'd on p.o. iron continue multivitamin. Patient also to discontinue aspirin and Celebrex at this time patient to follow-up with PCP for initiation of aspirin. Patient denies chest pain or shortness of breath. Patient denies nausea vomiting or diarrhea. Patient denies any urinary burning or frequency Patient Condition at Discharge: Stable Plan - Discharge Summary Discharge Rx Participant: No New Discharge Prescriptions: New Ferrous Sulfate [Iron] 325 mg PO DAILY 30 Days #30 tablet Pantoprazole [Protonix] 40 mg PO AC-BRKFST 30 Days #30 tab Continue Calcium Carbonate/Vitamin D3 [Calcium 600-Vit D3 12.5 Mcg (500 Iu)] 1 cap PO DAILY Docusate [Colace] 400 mg PO HS Acetaminophen [Tylenol Arthritis] 1,300 tab PO BID PRN PRN Reason: Pain Psyllium Husk 100% [Metamucil Packet] 6 gm PO DAILY L.acidoph,Paracasei, B.lactis [Probiotic] 1 cap PO DAILY Multivit-Min/Folic Acid/Hfr216 [Alive Premium Adult Multivit] 1 tab PO DAILY Discontinued Aspirin [Adult Low Dose Aspirin EC] 81 mg PO DAILY Celecoxib [CeleBREX] 200 mg PO BID Discharge Medication List Calcium Carbonate/Vitamin D3 [Calcium 600-Vit D3 12.5 Mcg (500 Iu)] 1 cap PO DAILY 08/05/18 [History] Acetaminophen [Tylenol Arthritis] 1,300 tab PO BID PRN 09/20/23 [History] Docusate [Colace] 400 mg PO HS 11/24/23 [History] L.acidoph,Paracasei, B.lactis [Probiotic] 1 cap PO DAILY 11/24/23 [History] Multivit-Min/Folic Acid/Pdu594 [Alive Premium Adult Multivit] 1 tab PO DAILY 11/24/23 [History] Psyllium Husk 100% [Metamucil Packet] 6 gm PO DAILY 11/24/23 [History] Ferrous Sulfate [Iron] 325 mg PO DAILY 30 Days #30 tablet 11/26/23 [Rx] Pantoprazole [Protonix] 40 mg PO AC-BRKFST 30 Days #30 tab 11/26/23 [Rx] Follow up Appointment(s)/Referral(s): Susannah Holley MD [Primary Care Provider] - 1-2 days Discharge Disposition: HOME SELF-CARE
[2023-11-26 12:12] LABS: ALT 10 U/L (8-44); AST 15 U/L (13-35); Albumin 3.6 g/dL (3.8-4.9); Albumin/Globulin Ratio 1.89 Ratio (1.60-3.17); Alkaline Phosphatase 51 U/L (41-126); Blood Urea Nitrogen 11.3 mg/dL (9.0-27.0); Calcium 8.8 mg/dL (8.7-10.3); Carbon Dioxide 23.2 mmol/L (21.6-31.8); Chloride 110 mmol/L (96-109); Globulin 1.9 g/dL (1.6-3.3); Glucose 100 mg/dL (70-110); Potassium 3.6 mmol/L (3.5-5.5); Sodium 145 mmol/L (135-145); Total Bilirubin 0.4 mg/dL (0.3-1.2); Total Protein 5.5 g/dL (6.2-8.2)
--- NOTE | 2023-11-26 15:24 | P.PN ---
Subjective Progress Note Date: 11/26/23 CHIEF COMPLAINT: GI bleed HISTORY OF PRESENT ILLNESS: Patient status post EGD and colonoscopy with results revealing gastritis, hiatal hernia and diverticulosis and hemorrhoids. Patient reports no further bleeding. Hemoglobin stable at 10.3. PHYSICAL EXAM: VITAL SIGNS: Reviewed. GENERAL: Well-developed in no acute distress. ABDOMEN: Soft. Nondistended. Nontender. NEUROLOGIC: Alert and oriented. Cranial nerves II through XII grossly intact. ASSESSMENT: 1. Acute GI bleed likely diverticular bleed status post EGD and colonoscopy PLAN: -Patient is tolerating diet. She has had no recurrent bleeding. Hemoglobin is stable. She is stable for discharge from surgical standpoint Physician Environmental Test Technician note has been reviewed by physician. Signing provider agrees with the documented findings, assessment, and plan of care. Objective - Vital Signs Vital signs: Vital Signs Temp 98.1 F 11/26/23 08:14 Pulse 74 11/26/23 08:14 Resp 18 11/26/23 08:14 BP 132/74 11/26/23 08:14 Pulse Ox 93 L 11/26/23 08:14 FiO2 Intake & Output 11/25/23 11/26/23 11/26/23 18:59 06:59 18:59 Intake Total 600 Balance 600 Intake: IV 100 Oral 500 Other: Voiding Method Toilet # Voids 2 3 - Labs CBC & Chem 7: 11/26/23 05:55 11/26/23 05:55 Labs: Abnormal Lab Results - Last 24 Hours (Table) 11/26/23 11/26/23 Range/Units 05:55 05:55 RBC 3.37 L (4.10-5.20) X 10*6/uL Hgb 10.3 L (12.0-15.0) g/dL Hct 32.3 L (37.2-46.3) % MCHC 31.9 L (32.0-37.0) g/dL RDW 15.0 H (11.5-14.5) % Chloride 110 H (96-109) mmol/L Creatinine 0.5 L (0.6-1.5) mg/dL BUN/Creatinine Ratio 22.60 H (12.00-20.00) Ratio Total Protein 5.5 L (6.2-8.2) g/dL Albumin 3.6 L (3.8-4.9) g/dL
--- NOTE | 2023-11-29 09:53 | CDI ---
Documentation Clarification Form Date: 11/29/2023 09:36:17 AM From: Marion Villanueva RN, CCDS Phone: [phone] Admit Date: 11/26/2023 09:15:00 AM Patient Name: Mar Grigsby Visit Number: [id number] Discharge Date: 11/26/2023 01:09:00 PM ATTENTION: The Clinical Documentation Specialists (CDI) and [facility] Coding Staff appreciate your assistance in clarifying documentation. Please respond to the clarification below the line at the bottom and electronically sign. The CDI & [facility] Coding staff will review the response and follow-up if needed. Please note: Queries are made part of the Legal Health Record. If you have any questions, please contact the author of this message via ITS. Dr. Joe Keith The patient had a decrease in hemoglobin/hematocrit level. Please clarify if there is an additional diagnosis and/or clinical significance related to these lab values. History/Risk Factors: CVA/TIA, deafness, HTN and OA. Presented with concerns of GI bleed. S/P EGD and colonoscopy. Clinical indicators: 11/23-11/25 Hgb: 13.5-10.9-10.3 11/23-11/25 Hct: 43.5-34.6-32.2 11/25 Surgery: "Acute GI bleed likely diverticular bleed status post EGD and colonoscopy." Discharge summary: "Hemoglobin 10.3, patient to receive IV iron prior to discharge. Will be DC'd on p.o. iron, continue multivitamin." Treatment: IV Ferric gluconate 125mg x1 on 11/25; Protonix 40mg po daily 11/24- 11/25; Monitor H/H Is there an additional diagnosis and/or clinical significance related to the above lab result/information: [ ] Acute blood loss anemia [ xxxxx] Iron deficiency anemia [ ] No additional diagnosis/Not clinically significant [ ] Unable to determine [ ] Other, please specify MTDD
== END 2023-11-26 13:09 | disposition home or self-care (01) | DRG 379 ==
LOC: EC 00:15 → 4SSUR 02:59 → OBSVTOIN 11-26 09:15
PROVIDERS: ADMIT Internal Medicine; ATTEND Internal Medicine
PROC: 0DJD8ZZ Inspection of Lower Intestinal Tract, Via Natural or Artificial Opening Endoscopic (ICD-10-PCS; principal; 2023-11-25 07:45)
PROC: 0DB78ZX Excision of Stomach, Pylorus, Via Natural or Artificial Opening Endoscopic, Diagnostic (ICD-10-PCS; principal; 2023-11-25 07:45)
DX: K57.31 Diverticulosis of large intestine without perforation or abscess with bleeding (principal); H91.90 Unspecified hearing loss, unspecified ear; I10 Essential (primary) hypertension; M19.90 Unspecified osteoarthritis, unspecified site; G43.909 Migraine, unspecified, not intractable, without status migrainosus; D50.9 Iron deficiency anemia, unspecified; K29.70 Gastritis, unspecified, without bleeding; K44.9 Diaphragmatic hernia without obstruction or gangrene; K64.9 Unspecified hemorrhoids; M41.9 Scoliosis, unspecified; Z96.612 Presence of left artificial shoulder joint; Z96.653 Presence of artificial knee joint, bilateral; Z79.1 Long term (current) use of non-steroidal anti-inflammatories (NSAID); Z79.82 Long term (current) use of aspirin; Z79.899 Other long term (current) drug therapy; Z86.73 Personal history of transient ischemic attack (TIA), and cerebral infarction without residual deficits; Z87.891 Personal history of nicotine dependence; Z88.2 Allergy status to sulfonamides
CPT/HCPCS: 36415; 43239; 45378; 80053; 82272; 85025; 85610; 85730; 86850; 86900; 86901; 88305; 93005; 99285